=== PATIENT | female | born 1940 | race Caucasian/White ===

== ENCOUNTER → 2016-07-28 | Outpatient (CLI) | payer OTHER ==
[~2016-07-28] MED LIST: HYDR25TA4 PO; LABE300T PO; MULT-506 PO; SERT50TA PO
[2016-07-28 15:18] LABS: BASO % 0.4 %; BASO ABS # 0.03 K/uL (0-0.2); COMPLETE YES; EOS % 2.5 %; HEMATOCRIT 38.2 % (37-47); IG% 0.1 %; LYMPH % 30.2 %; LYMPH ABS # 2.27 K/uL (1.2-3.4); MEAN CORPUSCULAR HEMOGLOBIN 30.8 pg (25-34); MEAN CORPUSCULAR HGB CONC 32.5 g/dl (32-36); MEAN PLATELET VOLUME 12.1 fL (7.4-10.4); MONO % 8.3 %; NEUT % 58.5 %; PLATELET COUNT 213 K/uL (130-400); RED BLOOD COUNT 4.02 M/uL (4.2-5.4); WHITE BLOOD COUNT 7.51 K/uL (4.8-10.8)
[2016-07-28 15:26] LABS: ALT/SGPT 18 U/L (12-78); BLOOD UREA NITROGEN 17 mg/dl (7-18); BUN/CREATININE RATIO 18.7 (10-20); CALCIUM 8.6 mg/dl (8.5-10.1); CARBON DIOXIDE 29 mmol/L (21-32); CHLORIDE 104 mmol/L (98-107); CREATININE 0.93 mg/dl (0.60-1.20); GLUCOSE 91 mg/dl (70-99); POTASSIUM 3.7 mmol/L (3.5-5.1); SODIUM 141 mmol/L (136-145)
[2016-07-28 15:36] LABS: ALKALINE PHOSPHATASE 83 U/L (45-117); AST/SGOT 20 U/L (15-37)
== END | disposition home or self-care (01) ==
LOC: C.LABSPEC 15:07
PROVIDERS: ATTEND Internal Medicine
DX: L65.9 Nonscarring hair loss, unspecified (principal); I10 Essential (primary) hypertension; F32.9 Major depressive disorder, single episode, unspecified

== ENCOUNTER → 2016-08-04 | Outpatient (CLI) | payer OTHER ==
--- NOTE | 2016-08-07 13:45 | MAMMOGRAPHY REPORT ---
BILATERAL DIGITAL SCREENING MAMMOGRAM WITH CAD: 08/04/2016 CLINICAL HISTORY: Routine screening. Patient has no complaints. TECHNIQUE: Current study was also evaluated with a Computer Aided Detection (CAD) system. Bilatera l CC and MLO views were obtained. COMPARISON: Comparison is made to exams dated: 05/14/2012 mammogram, 05/11/2011 mammogram, 01/07/2010 mammogram - [facility], and 01/06/2009. BREAST COMPOSITION: There are scattered areas of fibroglandular density in both breasts. FINDINGS: No suspicious masses, calcifications, or areas of architectural distortion are noted in e ither breast. There has been no significant interval change compared to prior exams. IMPRESSION: ACR BI-RADS CATEGORY 1: NEGATIVE There is no mammographic evidence of malignancy. A 1 year screening mammogram is recommended. The p atient will receive written notification of the results. Approximately 10% of breast cancers are not detected with mammography. A negative mammographic repor t should not delay biopsy if a clinically suggestive mass is present. Teresita Rea M.D. ah/:08/04/2016 12:03:16 Research Electrician: Anahi KINGSLEY(Caden)(M), [facility] letter sent: Normal 1/2 BI-RADS Code: ACR BI-RADS Category 1: Negative
== END | disposition home or self-care (01) ==
LOC: C.MAMM 10:00
PROVIDERS: ATTEND Internal Medicine
DX: Z12.31 Encounter for screening mammogram for malignant neoplasm of breast (principal)

== ENCOUNTER 2016-09-10 14:38 | Emergency (ER) | payer OTHER ==
[~2016-09-10] VITALS: Ht 157.5 cm; Wt 58.0 kg
[~2016-09-10 14:38] MED LIST changes: -HYDR25TA4 PO
[2016-09-10 14:42] VITALS: TEMP 36.7; Ht 157.5 cm; Wt 58.0 kg
[2016-09-10] MEDS ORDERED: SODIUM CHLORIDE 0.9% 1000ML 1,000 ML IV STA (14:49)
[2016-09-10] MEDS ORDERED: SODIUM CHLORIDE 0.9% 1000ML 1,000 ML IV ONE (14:49)
[2016-09-10 14:51] VITALS: O2SAT 95
--- NOTE | 2016-09-10 15:13 | DIAGNOSTIC IMAGING REPORT ---
CHEST ONE VIEW PORTABLE HISTORY: Atypical CHEST PAIN COMPARISON: None. FINDINGS: Moderate S-shaped scoliosis of the thoracolumbar spine. The heart is mildly enlarged. No pleural effusions. No pneumothorax. Tiny linear density with the left midlung zone favor scarring or subsegmental atelectasis. Otherwise, the lungs are clear. IMPRESSION: Mild cardiomegaly. Otherwise, no acute process within the chest. Electronically signed by: Ivan Bailey M.D. 09/10/2016 3:11 PM Dictated Date/Time: 09/10/2016 3:10 PM
--- NOTE | 2016-09-10 15:20 | EMERGENCY ROOM VISIT NOTE ---
History Report prepared by Micah: Shanthi Cedeno Under the Supervision of: Dr. Rahat Villalpando M.D. First contact with patient: 14:45 Chief Complaint: WEAKNESS Stated Complaint: WEAKNESS,DEHYDRATED Nursing Triage Summary: Triage note: Pt reports generalized weakness and increased fatigue and dereased intake x several weeks. pt reports "today i shit myself today, it gushed out of me." History of Present Illness The patient is a 76 year old female who presents to the Emergency Room with complaints of worsening weakness for the past 2 weeks. The patient states that her weakness is generalized and not worse on one side of her body. Daughter states that the patient had flu-like symptoms about a month ago. Those symptoms resolved but then she started to become weak. She has been experiencing a mild cough. She has not been eating or drinking much. The patient states that she has lost about 5-6 pounds over the past couple of weeks. This morning the patient was incontinent of stool and had some diarrhea. She was also too weak to stand up in the shower. The patient denies fever, chest pain, shortness of breath, black or bloody stools, urinary symptoms, hematuria, recent trauma or falls, and any recent antibiotic usage. She does not take any blood thinners. She denies any new medications, but reports that she recently stopped taking her antidepressant. She has been feeling more depressed lately. She states that her is sick and she has been taking care of him. The patient states that she is taking all of her other medications as prescribed. Source of History: patient, family (daughter) Onset: 2 weeks ago Position: other (global) Quality: other (weakness) Timing: worsening Modifying Factors (Worsening): other (standing) Associated Symptoms: + cough, + diarrhea, No SOB, No chest pain, No fevers, No hematochezia, No melena, No urinary symptoms Note: Pt reports recent weight loss. Review of Systems See HPI for pertinent positives & negatives. A total of 10 systems reviewed and were otherwise negative. Past Medical & Surgical Medical Problems: (1) Cervicalgia (2) Hypertension Old medical records were reviewed. Nurse's notes were reviewed and I agree with. Family History Non-pertinent due to advanced age. Social History Smoking Status: Never Smoker Drug Use: none Marital Status: Housing Status: lives with significant other Occupation Status: unemployed Current/Historical Medications Scheduled Labetalol Hcl (Labetalol Hcl), 300 MG PO BID Sertraline (Zoloft), 50 MG PO QAM Allergies Coded Allergies: No Known Allergies (Verified , 09/10/16) Physical Exam Vital Signs Date Time Temp Pulse Resp B/P Pulse Ox O2 Delivery O2 Flow Rate FiO2 09/10/16 17:34 66 19 194/105 95 Room Air 09/10/16 16:30 67 16 214/100 96 09/10/16 16:30 63 15 214/100 97 Room Air 09/10/16 16:00 63 19 211/127 92 09/10/16 15:35 62 09/10/16 15:30 200/110 09/10/16 14:51 95 Room Air 09/10/16 14:42 36.7 74 20 170/90 95 Room Air Physical Exam General: Well developed well nourished non-ill appearing older female in no acute distress, breathing comfortably on room air. Normal speech HEENT: Normal cephalic atraumatic. Pupils are equal round and reactive to light. Extraocular movements are intact. Oropharynx is pink with moist mucous membranes. No swelling of the mouth lips or tongue. Neck: Supple with a midline trachea. No meningeal signs or stiffness, no JVD or bruits. No Stridor. Chest: Scattered crackles in the bases bilaterally. No wheezes or rhonchi. No increased work of breathing. Heart: regular rate and rhythm. 2/6 systolic murmur. Abdomen: Soft nontender, nondistended without rebound guarding or rigidity. Extremities: No cyanosis clubbing or edema. No calf tenderness or assymetry Spine/Back. Non tender to palpation. No CVA tenderness Skin: Good turgor without rashes. Neurologic exam: Cranial nerves two through 12 are intact. Motor and sensation are intact and symmetrical throughout. Medical Decision & Procedures ER Provider Diagnostic Interpretation: Radiology results as stated below per my review and radiologist interpretation: HEAD CT NONCONTRAST CT DOSE: 623.48 mGy.cm HISTORY: weakness TECHNIQUE: Multiaxial CT images of the head were performed without the use of intravenous contrast. Automated exposure control was utilized for this study. Comparison: None. Findings: The paranasal sinuses and mastoid air cells are clear. The calvarium and skull base are intact. There is no mass, hematoma, midline shift, acute infarct. White matter hypodensity is nonspecific but suggestive of microvascular ischemic change. The ventricles and sulci demonstrate mild age-related involutional changes. 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 Impression: No acute intracranial abnormality. Atrophy and microvascular ischemic changes. Electronically signed by: Ivan Bailey M.D. 09/10/2016 4:10 PM Dictated Date/Time: 09/10/2016 4:04 PM CHEST ONE VIEW PORTABLE HISTORY: Atypical CHEST PAIN COMPARISON: None. FINDINGS: Moderate S-shaped scoliosis of the thoracolumbar spine. The heart is mildly enlarged. No pleural effusions. No pneumothorax. Tiny linear density with the left midlung zone favor scarring or subsegmental atelectasis. Otherwise, the lungs are clear. IMPRESSION: Mild cardiomegaly. Otherwise, no acute process within the chest. Electronically signed by: Ivan Bailey M.D. 09/10/2016 3:11 PM Dictated Date/Time: 09/10/2016 3:10 PM Laboratory Results 09/10/16 15:15 Red Blood Count 4.29, Mean Corpuscular Volume 91.6, Mean Corpuscular Hemoglobin 30.8, Mean Corpuscular Hemoglobin Concent 33.6, Mean Platelet Volume 11.1, Neutrophils (%) (Auto) 75.3, Lymphocytes (%) (Auto) 16.9, Monocytes (%) (Auto) 6.9, Eosinophils (%) (Auto) 0.4, Basophils (%) (Auto) 0.2, Neutrophils # (Auto) 8.50, Lymphocytes # (Auto) 1.91, Monocytes # (Auto) 0.78, Eosinophils # (Auto) 0.05, Basophils # (Auto) 0.02 09/10/16 15:15 Test 09/10/16 15:15 09/10/16 15:16 09/10/16 16:25 White Blood Count 11.29 K/uL (4.8-10.8) Red Blood Count 4.29 M/uL (4.2-5.4) Hemoglobin 13.2 g/dL (12.0-16.0) Hematocrit 39.3 % (37-47) Mean Corpuscular Volume 91.6 fL (80-100) Mean Corpuscular Hemoglobin 30.8 pg (25-34) Mean Corpuscular Hemoglobin Concent 33.6 g/dl (32-36) Platelet Count 243 K/uL (130-400) Mean Platelet Volume 11.1 fL (7.4-10.4) Neutrophils (%) (Auto) 75.3 % Lymphocytes (%) (Auto) 16.9 % Monocytes (%) (Auto) 6.9 % Eosinophils (%) (Auto) 0.4 % Basophils (%) (Auto) 0.2 % Neutrophils # (Auto) 8.50 K/uL (1.4-6.5) Lymphocytes # (Auto) 1.91 K/uL (1.2-3.4) Monocytes # (Auto) 0.78 K/uL (0.11-0.59) Eosinophils # (Auto) 0.05 K/uL (0-0.5) Basophils # (Auto) 0.02 K/uL (0-0.2) RDW Standard Deviation 44.2 fL (36.4-46.3) RDW Coefficient of Variation 13.3 % (11.5-14.5) Immature Granulocyte % (Auto) 0.3 % Immature Granulocyte # (Auto) 0.03 K/uL (0.00-0.02) Red Blood Cell Morphology Unremarkable Anion Gap 8.0 mmol/L (3-11) Est Creatinine Clear Calc Drug Dose 44.9 ml/min Estimated GFR () 76.1 Estimated GFR (Non- 65.6 BUN/Creatinine Ratio 23.8 (10-20) Calcium Level 9.0 mg/dl (8.5-10.1) Total Bilirubin 0.6 mg/dl (0.2-1) Direct Bilirubin 0.2 mg/dl (0-0.2) Aspartate Amino Transf (AST/SGOT) 12 U/L (15-37) Alanine Aminotransferase (ALT/SGPT) 14 U/L (12-78) Alkaline Phosphatase 81 U/L (45-117) Total Protein 7.0 gm/dl (6.4-8.2) Albumin 3.1 gm/dl (3.4-5.0) Lipase 170 U/L (73-393) Thyroid Stimulating Hormone (TSH) 1.890 uIu/ml (0.300-4.500) Bedside Troponin I 0.030 ng/ml (0-0.045) Urine Color DK YELLOW Urine Appearance CLEAR (CLEAR) Urine pH 6.0 (4.5-7.5) Urine Specific [place] 1.013 (1.000-1.030) Urine Protein 1+ (NEG) Urine Glucose (UA) NEG (NEG) Urine Ketones NEG (NEG) Urine Occult Blood TRACE (NEG) Urine Nitrite NEG (NEG) Urine Bilirubin NEG (NEG) Urine Urobilinogen NEG (NEG) Urine Leukocyte Esterase NEG (NEG) Urine WBC (Auto) 0 /hpf (0-5) Urine RBC (Auto) 0-4 /hpf (0-4) Urine Hyaline Casts (Auto) 1-5 /lpf (0-5) Urine Epithelial Cells (Auto) >30 /lpf (0-5) Urine Bacteria (Auto) NEG (NEG) Urine Renal Epithelial Cells /lpf (0-5) Laboratory studies as stated above per my review. Medications Administered Medications (Trade) Dose Ordered Sig/Dang Route Start Time Stop Time Status Last Admin Dose Admin Sodium Chloride 1,000 ml @ 999 mls/hr Q1H1M STAT IV 09/10/16 14:49 09/10/16 15:49 DC 09/10/16 15:24 999 MLS/HR Sodium Chloride (Nss 1000ml) 1,000 ml @ 150 mls/hr Q6H40M ONCE IV 09/10/16 14:49 09/10/16 18:45 DC 09/10/16 15:25 150 MLS/HR Labetalol HCl (Normodyne Tab) 300 mg NOW ONCE PO 09/10/16 17:30 09/10/16 17:31 DC 09/10/16 17:33 300 MG ECG Indication: weakness Rate (beats per minute): 65 Rhythm: normal sinus Findings: T-wave inversion (Lateral), no acute ischemic change Comparison ECG Date: no prior available ED Course 1445: Past medical records reviewed. The patient was evaluated in room C3, and a complete history and physical examination were performed. 1449: NSS 1000 ml @ 150 mls/hr IV, NSS 1000 ml @ 999 mls/hr IV 1612: I reassessed the patient at this time. She is resting comfortably and still needs to give a urine sample. 1703: I reassessed the patient at this time. She is feeling better and wants to go home. I discussed the results and treatment plan with the patient and her daughter. I answered all pertaining questions that they had. They expressed understanding and verbalized agreement. 1714: I spoke with the patient's PCP, Dr. Holman. We discussed the patient' s case. He recommends giving the patient a normal dose of Labetalol and discharging her home. 1730: Labetalol HCl 300 mg PO Medical Decision Differential diagnoses includes dehydration, electrolyte or metabolic abnormality, infection, arrhythmia, acute coronary syndrome. This patient comes in as described above. She was placed in room C3. She is here for treatment and evaluation of generalized weakness that has been going on for about 2 weeks. She has had diarrhea today without blood. She was weak to the point where she had trouble getting up. This has been nonfocal. She's had no fall she's had no fever or chills. She has no other specific complaints. No chest pain or shortness of breath. IV access established was hydrated with IV normal saline. Chest x-ray , CAT scan her head , EKG , and multiple blood tests was obtained. She has a nonfocal neurologic exam the CAT scan of her head is unremarkable. Chest x-ray does not show congestive heart failure, pneumonia, or pneumothorax. Her white count is minimally elevated. She is not anemic. She has no significant electrolyte or metabolic abnormalities. Her cardiac enzymes are within normal limits. She does have an EKG which shows some T-wave inversions laterally. There is nothing to suggest acute IL. I do not know the chronicity of the T-wave inversions as there is no old EKG available here for comparison. The patient did have an ambulatory trial as well. She did well with a most [place]. Her urinalysis does not suggest a UTI nor does she have urinary symptoms. A culture is pending. Blood pressure did remain elevated while she was here. She has yet to take her evening dose labetalol. I gave her her normal dose here of 300 mg. She was told that this is her normal dose and do not take her dose when she gets home. I did discuss case with Dr. Holman, her primary care physician, and he agrees with the plan will follow up with her tomorrow and return if: worsening of symptoms, shortness of breath, any new problems or concerns. Consults Time Called: 171 Consulting Physician: Dr. Holman Returned Call: [phone] I spoke with the patient's PCP, Dr. Holman. We discussed the patient's case. He recommends giving the patient a normal dose of Labetalol and discharging her home. Impression Primary Impression: Weakness Additional Impressions: Dehydration Diarrhea Scribe Attestation The scribe's documentation has been prepared under my direction and personally reviewed by me in its entirety. I confirm that the note above accurately reflects all work, treatment, procedures, and medical decision making performed by me. Departure Information Dispostion Home / Self-Care Referrals Alonso Phoenix M.D. (PCP) Forms HOME CARE DOCUMENTATION FORM, IMPORTANT VISIT INFORMATION Patient Instructions My [facility] Additional Instructions Rest. Drink plenty of fluids. Be careful getting up and down. You have received her evening blood pressure medication here -do not take it again Follow-up with Dr. Holman tomorrow to get your blood pressure rechecked and return to the ER if: Fever or chills, worsening symptoms, any new problems or concerns. Problem Qualifiers Additional Impressions: Diarrhea Diarrhea type: unspecified type Qualified Codes: R19.7 - Diarrhea, unspecified
[2016-09-10 15:23] LABS: HEMATOCRIT 39.3 % (37-47); MEAN CELL VOLUME 91.6 fL (80-100); MEAN CORPUSCULAR HEMOGLOBIN 30.8 pg (25-34); MEAN CORPUSCULAR HGB CONC 33.6 g/dl (32-36); MEAN PLATELET VOLUME 11.1 fL (7.4-10.4); PLATELET COUNT 243 K/uL (130-400); RED BLOOD COUNT 4.29 M/uL (4.2-5.4); WHITE BLOOD COUNT 11.29 K/uL (4.8-10.8)
[2016-09-10 15:41] LABS: BASO % 0.2 %; BASO ABS # 0.02 K/uL (0-0.2); COMPLETE YES; EOS % 0.4 %; IG% 0.3 %; LYMPH % 16.9 %; LYMPH ABS # 1.91 K/uL (1.2-3.4); MONO % 6.9 %; NEUT % 75.3 %
[2016-09-10 15:50] LABS: BUN/CREATININE RATIO 23.8 (10-20); CREATININE 0.87 mg/dl (0.60-1.20); POTASSIUM 4.1 mmol/L (3.5-5.1)
[2016-09-10 16:01] LABS: THYROID STIMULATING HORMONE 1.89 uIu/ml (0.300-4.500)
--- NOTE | 2016-09-10 16:12 | DIAGNOSTIC IMAGING REPORT ---
HEAD CT NONCONTRAST CT DOSE: 623.48 mGy.cm HISTORY: weakness TECHNIQUE: Multiaxial CT images of the head were performed without the use of intravenous contrast. Automated exposure control was utilized for this study. Comparison: None. Findings: The paranasal sinuses and mastoid air cells are clear. The calvarium and skull base are intact. There is no mass, hematoma, midline shift, acute infarct. White matter hypodensity is nonspecific but suggestive of microvascular ischemic change. The ventricles and sulci demonstrate mild age-related involutional changes. 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 Impression: No acute intracranial abnormality. Atrophy and microvascular ischemic changes. Electronically signed by: Ivan Bailey M.D. 09/10/2016 4:10 PM Dictated Date/Time: 09/10/2016 4:04 PM
[2016-09-10] MEDS ORDERED: LABETALOL HCL 100 MG TAB PO ONE (17:30)
[2016-09-10 17:34] VITALS: BP 194/105; PULSE 66; O2SAT 95
[2016-09-10 17:44] LABS: URINE APPEARANCE CLEAR (CLEAR); URINE BILIRUBIN NEG (NEG); URINE COLOR DK YELLOW; URINE EPITHELIAL CELL AUTO >30 /lpf (0-5); URINE NITRITE NEG (NEG); URINE SPECIFIC GRAVITY 1.013 (1.000-1.030); UROBILINOGEN NEG (NEG)
[2016-09-10 17:50] LABS: MANUAL MICROSCOPIC REQUIRED? NO; REVIEW REQ? YES
--- NOTE | 2016-09-12 12:35 | Pharmacy Progress Note ---
ED Pharmacist Culture FollowUp Date of Service: Sep 12, 2016. Gamma Strep not Enterococcus isolated from urine culture. Patient denied urinary symptoms and hematuria. Urinalysis grossly normal with the exception of a significant amount of epithelial cells and trace blood. Likely contaminant - no intervention required. Case discussed with Dr. Choi.
[2016-12-01] MEDS ORDERED: HYDR25TA4 PO (13:12)
== END 2016-09-10 17:54 | disposition home or self-care (01) ==
LOC: C.EDB 14:40 → C.EDC 17:54
DX: R53.1 Weakness (principal); R19.7 Diarrhea, unspecified; E86.0 Dehydration; I10 Essential (primary) hypertension; Z79.899 Other long term (current) drug therapy

== ENCOUNTER → 2016-09-13 | Outpatient (CLI) | payer OTHER ==
[~2016-09-13] MED LIST changes: +ATROPINE SULFATE 0.1 MG/ML 5ML SYR ONE; +DOBUTamine HCL 12.5 MG/ML 20 ML VIAL ONE; +HYDR25TA4 PO; +METOPROLOL TARTRATE 1 MG/ML VIAL ONE; -MULT-506 PO
--- NOTE | 2016-09-13 17:27 | DOBUTAMINE ECHO ---
*NOTICE TO RECEIVING [employer] This information is strictly Confidential and protected under [place] law. [place] law prohibits you from making any further disclosure of this information unless further disclosure is expressly permitted by the written consent of the person to whom it pertains or is authorized by law. A general authorization for the release of medical or other information is not sufficient for this purpose. Hospital accepts no responsibility if the information is made available to any other person, INCLUDING THE PATIENT. Interpretation Summary * Name: TYSON MARAVILLA Study Date: 09/13/2016 10:39 AM BP: 162/93 mmHg * Patient Location: [facility] HR: 62 * : 1940 (M/d/yyyy) Gender: Female Height: 62 in * Age: 76 yrs Ethnicity: [place] Weight: 130 lb * Ordering Physician: Alonso Phoenix * Referring Physician: Alonso Phoenix * Performed By: Trang Astudillo RCS * * Reason For Study: Abnormal EKG, CAD Screening * BSA: 1.6 m2 * -- Conclusions -- * 1. Severe concentric left ventricular hypertrophy. Appearance raises concern for possible amyloid or other infiltrative process. * 2. Borderline dobutamine stress echo. Possible mild stress induced hypokinesis in base to mid anteroseptum, septum. * 3. Negative dobutamine stress ECG for ischemia at 86% MPHR. * 4. Hypertensive response to dobutmaine. * 5. Normal resting biventricular function. * 6. Severe mitral annular calcification with mild mitral stenosis. * 7. Mild aortic valve sclerosis without stenosis. * 8. Small pericardial effusion. * 9. Moderate atherosclerotic plaque in ascending aorta. * 10. Abdominal aorta dilated (4.2 cm) with atherosclerotic plaque. Procedure Details * DOBUTAMINE ECHO, CPT#[id number] * ECHO COLOR FLOW, CPT #[id number] * ECHO DOPPLER, CPT #[id number] Left Ventricle * The left ventricular cavity is small. * There is severe concentric left ventricular hypertrophy. * Papillary muscle hypertrophy. No clear intracavitary gradient noted. * Ejection Fraction = 60-65%. * Stress induced mild,base to mid anteroseptal, septal hypokinesis. Right Ventricle * The right ventricle is grossly normal size. * The right ventricular systolic function is normal as assessed by tricuspid annular plane systolic excursion (TAPSE) (normal >1.5 cm). Atria * The left atrium is severely dilated. * Right atrial size is normal. * No ASD detected; PFO is not assessed. Mitral Valve * There is severe mitral annular calcification. * The mitral valve leaflets appear thickened, but open well. * There is mild to moderate mitral stenosis. * Significant mitral regurgitation is absent. Tricuspid Valve * The tricuspid valve is not well visualized, but is grossly normal. * There is no tricuspid stenosis. * Significant tricuspid regurgitation is absent. Aortic Valve * The aortic valve opens well. * Aortic valve sclerosis mild, without significant aortic valvular stenosis. * The aortic valve is trileaflet. * No hemodynamically significant valvular aortic stenosis. * There is no significant aortic regurgitation. Pulmonic Valve * The pulmonary valve is inadequately visualized, but the Doppler data is adequate for interpretation. * There is no pulmonic valvular regurgitation. Great Vessels * Moderate atherosclerotic plaque(s) in the ascending aorta. * Moderately dilated abdominal aorta. Pericardium * Small pericardial effusion. Stress Parameters * Sinus rhythm, borderline criteria for LVH, inferior T wave inversions. * Stress ECG: No ST changes. No arrhythmias. * No arrhythmia were noted with stress. * Rest heart rate was '62' BPM. * Rest blood pressure was '162/93' * Maximum heart rate achieved was 127 bpm. * Maximum heart rate was 86 % of maximum age-predicted heart rate. * Maximum blood pressure was '212/98' * Maximum Dobutamine infusion rate was '30' mcg/kg/min. * A total of .5 mg of intravenous Atropine was used to supplement Dobutamine for heart rate response. * Dobutamine infusion was terminated due to achieving target heart rate * A total of 10 mg of IV Metoprolol was administered to reverse Dobutamine-induced tachycardia. * The patient did not exhibit any symptoms during drug infusion. Left Ventricular Diastolic Function * Severely reduced LV longitudinal velocity on tissue doppler MMode 2D Measurements and Calculations IVSd 1.9 cm IVSs 2.4 cm LVIDd 3.9 cm LVIDs 2.6 cm LVPWd 1.8 cm LVPWs 2.2 cm IVS/LVPW 1.1 FS 34.2 % EDV(Teich) 66.6 ml ESV(Teich) 24.0 ml EF(Teich) 63.9 % EDV(cubed) 60.1 ml ESV(cubed) 17.1 ml EF(cubed) 71.6 % % IVS thick 26.1 % % LVPW thick 24.4 % LV mass(C)d 319.6 grams LV mass(C)dI 200.8 grams/m\S\2 LV mass(C)s 299.8 grams LV mass(C)sI 188.3 grams/m\S\2 CO(Teich) 3.2 l/min CI(Teich) 2.0 l/min/m\S\2 SV(Teich) 42.6 ml SI(Teich) 26.8 ml/m\S\2 CO(cubed) 3.3 l/min CI(cubed) 2.1 l/min/m\S\2 SV(cubed) 43.0 ml SI(cubed) 27.0 ml/m\S\2 Ao root diam 3.9 cm Ao root area 11.9 cm\S\2 ACS 1.3 cm LA dimension 3.8 cm LA/Ao 0.98 LVOT diam 2.0 cm LVOT area 3.3 cm\S\2 LVAd ap4 32.0 cm\S\2 LVLd ap4 8.5 cm EDV(MOD-sp4) 103.0 ml LVAs ap4 15.7 cm\S\2 LVLs ap4 6.8 cm ESV(MOD-sp4) 32.0 ml EF(MOD-sp4) 68.9 % LVAd ap2 25.7 cm\S\2 LVLd ap2 8.1 cm EDV(MOD-sp2) 71.0 ml LVAs ap2 15.6 cm\S\2 LVLs ap2 7.0 cm ESV(MOD-sp2) 31.0 ml EF(MOD-sp2) 56.3 % CO(MOD-sp4) 5.4 l/min CI(MOD-sp4) 3.4 l/min/m\S\2 SV(MOD-sp4) 71.0 ml SI(MOD-sp4) 44.6 ml/m\S\2 CO(MOD-sp2) 3.0 l/min CI(MOD-sp2) 1.9 l/min/m\S\2 SV(MOD-sp2) 40.0 ml SI(MOD-sp2) 25.1 ml/m\S\2 Doppler Measurements and Calculations MV E max itzel 121.4 cm/sec MV A max itzel 171.4 cm/sec MV E/A 0.71 MV P1/2t max itzel 122.7 cm/sec MV P1/2t 158.2 msec MVA(P1/2t) 1.4 cm\S\2 MV dec slope 227.1 cm/sec\S\2 MV dec time 0.58 sec Ao V2 max 256.3 cm/sec Ao max PG 26.3 mmHg Ao max PG (full) 21.9 mmHg Ao V2 mean 144.6 cm/sec Ao mean PG 10.3 mmHg Ao mean PG (full) 8.3 mmHg Ao V2 VTI 44.8 cm MALINI(I,A) 1.7 cm\S\2 MALINI(I,D) 1.7 cm\S\2 MALINI(V,A) 1.3 cm\S\2 MALINI(V,D) 1.3 cm\S\2 LV V1 max PG 4.4 mmHg LV V1 mean PG 2.0 mmHg LV V1 max 104.6 cm/sec LV V1 mean 63.6 cm/sec LV V1 VTI 22.8 cm SV(Ao) 531.5 ml SI(Ao) 333.9 ml/m\S\2 SV(LVOT) 75.2 ml SI(LVOT) 47.3 ml/m\S\2 PA V2 max 111.7 cm/sec PA max PG 5.0 mmHg
== END | disposition home or self-care (01) ==
LOC: C.CPL 10:16
PROVIDERS: ATTEND Internal Medicine
DX: R94.31 Abnormal electrocardiogram [ECG] [EKG] (principal); I70.0 Atherosclerosis of aorta; I34.9 Nonrheumatic mitral valve disorder, unspecified; I51.7 Cardiomegaly

== ENCOUNTER → 2016-11-28 | Outpatient (CLI) | payer OTHER ==
[~2016-11-28] MED LIST changes: -ATROPINE SULFATE 0.1 MG/ML 5ML SYR ONE; -DOBUTamine HCL 12.5 MG/ML 20 ML VIAL ONE; -METOPROLOL TARTRATE 1 MG/ML VIAL ONE
== END | disposition home or self-care (01) ==
LOC: C.PATHSPEC 15:43
PROVIDERS: ATTEND Internal Medicine
DX: C44.629 Squamous cell carcinoma of skin of left upper limb, including shoulder (principal)

== ENCOUNTER → 2016-11-30 | Outpatient (CLI) | payer OTHER ==
[2016-11-30 12:06] LABS: BASO % 0.5 %; BASO ABS # 0.04 K/uL (0-0.2); COMPLETE YES; HEMATOCRIT 41.2 % (37-47); IG% 0.1 %; LYMPH % 27.5 %; LYMPH ABS # 2.04 K/uL (1.2-3.4); MEAN CELL VOLUME 96.3 fL (80-100); MEAN CORPUSCULAR HEMOGLOBIN 30.6 pg (25-34); MEAN CORPUSCULAR HGB CONC 31.8 g/dl (32-36); MEAN PLATELET VOLUME 12.3 fL (7.4-10.4); MONO % 8.5 %; NEUT % 60.4 %; PLATELET COUNT 200 K/uL (130-400); RED BLOOD COUNT 4.28 M/uL (4.2-5.4); WHITE BLOOD COUNT 7.43 K/uL (4.8-10.8)
[2016-11-30 12:18] LABS: ALT/SGPT 19 U/L (12-78); AST/SGOT 16 U/L (15-37); BLOOD UREA NITROGEN 18 mg/dl (7-18); CALCIUM 8.7 mg/dl (8.5-10.1); CARBON DIOXIDE 31 mmol/L (21-32); CHLORIDE 110 mmol/L (98-107); CHOLESTEROL 187 mg/dl (0-200); GLUCOSE 104 mg/dl (70-99); POTASSIUM 4.1 mmol/L (3.5-5.1); SODIUM 146 mmol/L (136-145); TRIGLYCERIDES 83 mg/dl (0-150); VERY LOW DENSITY LIPOPROT CALC 17 mg/dl
[2016-11-30 12:21] LABS: ALB/GLOB RATIO 1.1 (0.9-2); ALKALINE PHOSPHATASE 81 U/L (45-117); CHOLESTEROL/HDL RATIO 3.3; HDL CHOLESTEROL 57 mg/dl
== END | disposition home or self-care (01) ==
LOC: C.LABSPEC 11:47
PROVIDERS: ATTEND Internal Medicine
DX: I10 Essential (primary) hypertension (principal); E78.5 Hyperlipidemia, unspecified

== ENCOUNTER → 2016-12-01 | Day surgery (SDC) | payer OTHER ==
[~2016-12-01] VITALS: Ht 157.5 cm; Wt 58.0 kg
[~2016-12-01] MED LIST changes: +FENTANYL CITRATE INJ 50 MCG/1 ML 2 ML VIAL ONE; +HEPARIN SOD (PORCINE) 1000 UNIT/ML 10 ML VIAL ONE; +HYDROCHLOROTHIAZIDE 25 MG TAB PO ONE; +MIDAZOLAM HCL 1 MG/ML 2ML VIAL ONE; +NITROGLYCERIN/D5W 100MCG/ML 20ML SYR ONE; +NURSING VERBAL MED ORDER ONE; +NiCARDipine HCL INJ 2.5 MG/ML 10 ML AMP ONE
[2016-12-01 07:19] VITALS: PULSE 56; TEMP 36.5; O2SAT 95; Ht 157.5 cm; Wt 58.0 kg
--- NOTE | 2016-12-01 09:14 | History & Physical Bridge Note ---
H&P Re-Evaluation Bridge Note: I have examined the patient, reviewed the History & Physical and in the interval since the performance of the History & Physical I have noted the following changes of clinical significance: No changes noted
--- NOTE | 2016-12-01 09:15 | Procedure Note ---
Pre-Mod Sedation Assessment General Date of Moderate Sedation: Dec 01, 2016. Vital Signs: Vital Signs Past 12 Hours Date Time Temp Pulse Resp B/P (MAP) Pulse Ox O2 Delivery O2 Flow Rate FiO2 12/01/16 07:19 36.5 56 16 95 Room Air Review Cardiovascular: regular rate, rhythm, no edema Abdomen: normal bowel sounds, non tender Lungs: chest non-tender, lungs clear Airway Class: II Pre-Sedation Airway Assessment Oral Cavity: Dentures Able to Visualize Vocal Cords: No Short Thick Neck: No Hx of Sleep Apnea: No Smoking Status: Current Every Day Smoker Mallampati Classification: Class II ASA Classification: Class III Procedure Planning Contraindications-for Mod Sed: None Yes Notes The planned sedation has been discussed with the patient and consent obtained. I have identified the patient, determined the appropriateness of sedation and have assessed the patient immediately prior to the procedure. All medicine(s) and interventions are by my order.
--- NOTE | 2016-12-01 09:15 | Procedure Note ---
Post-Mod Sedation Assessment General Date of Moderate Sedation Dec 01, 2016. Vital Signs: Vital Signs Past 12 Hours Date Time Temp Pulse Resp B/P (MAP) Pulse Ox O2 Delivery O2 Flow Rate FiO2 12/01/16 07:19 36.5 56 16 95 Room Air Review - Discharge Criteria Vital Signs Stable: Yes Alert/Oriented/Conversant: Yes Returned to Baseline Mental St: Yes Nausea Absent/Minimal: Yes Pain/Discomfort/Absent/Minimal: Yes Normal/Baseline Respirations: Yes Active Bleeding?: No Pt Received D/C Instructions: No Prescriptions Given: None Specific Proced. D/C Criteria Distal Pulses Present (Cardiac: Yes Groin site assessed-Card Cath: N/A Voided Prior To Discharge: N/A Discharged Patients Adult Escort/Transportation: Yes
[2016-12-01 09:42] LABS: ISTAT ARTERIAL BLOOD GAS HCO3 27 meq/L (19-24); ISTAT ARTERIAL BLOOD GAS PCO2 52 mmHg (35-46); ISTAT ARTERIAL BLOOD GAS PO2 48 mmHg (80-95); ISTAT ARTERIAL BLOOD GAS pH 7.33 (7.35-7.45); ISTAT CARBON DIOXIDE 29 mEq/l (24-31)
[2016-12-01 09:42] LABS: ISTAT ARTERIAL BLOOD GAS HCO3 27 meq/L (19-24); ISTAT ARTERIAL BLOOD GAS HCO3 28 meq/L (19-24); ISTAT ARTERIAL BLOOD GAS PCO2 50 mmHg (35-46); ISTAT ARTERIAL BLOOD GAS PCO2 53 mmHg (35-46); ISTAT ARTERIAL BLOOD GAS PO2 49 mmHg (80-95); ISTAT ARTERIAL BLOOD GAS PO2 < 32 mmHg (80-95); ISTAT ARTERIAL BLOOD GAS pH 7.33 (7.35-7.45); ISTAT ARTERIAL BLOOD GAS pH 7.34 (7.35-7.45); ISTAT CARBON DIOXIDE 28 mEq/l (24-31); ISTAT CARBON DIOXIDE 30 mEq/l (24-31)
--- NOTE | 2016-12-01 09:44 | Cardiac Catheterization ---
Procedure Note Procedure Date Dec 01, 2016. 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 Henderson [employer] Dynamics Manager Architect(s) Deangelo Estimated Blood Loss 10 Medication(s) Fentanyl, Heparin, Nicardipine, Nitroglycerin, Versed, Lidocaine 1% Summary of Findings Indication: Dyspnea on exertion/Abnormal stress test Access: 6Fr Slender Right Radial Artery; 6Fr slender right antecubital vein Catheters: [place], pigtail, JL3.5; 6Fr [place] Findings: LM - Angiographically normal LAD - Tortuous, angiographically normal Circumflex - Tortuous, angiographically normal RCA - Dominant, tortuous, angiographically normal RA 9 RV 38/10 PA 34/14 (22) PCW 17 LVEDP 22 PaSat 55% AoSat 81% Keyur CO/CI 4.4/2.8 Thermo CO/CI 4.2/2.7 Simultaneous wedge/LV --> MV mean gradient 5.8 Arterial Closure: TR Band Summary: 1. Angiographically normal coronary arteries 2. Elevated right and left intracardiac filling pressures. 3. Normal cardiac output 4. No pulmonary hypertension 5. Mild mitral stenosis 6. Hypoxia to low 80s with sedation Recommendations: Consider addition of low dose diuretics for elevated filing pressures Continue antihypertensives Continued ASCVD risk factor modification including smoking cessation Intermittent surveillance imaging for mitral stenosis Hemodynamics Rest Ao: 163/67/104 Final Ao: 174/71/109 LV: 161/25 Recommendations Medical therapy and/or Counseling Specimens None Radiation Exposure (mGy) 224 Contrast (mls) 40 Fluids (cc crystalloids) 150 Drains None Anesthesia Moderate Procedural Complication(s) None Disposition Accessories Repairer Holding/Recovery [facility] Data Cardiac Status Clinical evaluation leading to the procedure CAD Presntation: Positive Stress Test Anginal Classification: CCS III Heart Failure: No, NYHA Class: CCS I Cardiogenic Shock w/in 24Hrs: No Cardiac Arrest w/in 24Hrs: No Imaging studies past 6 months: Yes Stress studies past 6 months: Yes Standard Exercise Stress Test: No Stress Echocardiogram: Yes - Positive, Risk/Extent of Ischemia (Low) Stress Testing w/SPECT MPI: No Cardiac CTA: No Coronary Anatomy Dominant: Right Left Main (% Stenosis): Normal LAD (% Stenosis): Normal Circumflex (% Stenosis): Normal RCA (% Stenosis): Normal Diagnostic Physician's Name: Gil Henderson MD Status: Elective Closure Device Percutaneous Entry Location: Radial Closure Device: Radial Band Recommendations: Medical therapy and/or Counseling Intraprocedure Events Significant Dissection: No Perforation: No
--- NOTE | 2016-12-01 09:47 | Discharge Instructions ---
Discharge Instructions Procedure Procedure Date: Dec 01, 2016. Reason for Visit: Abnormal Stress Echo, *Dr Henderson To Do*. Discharge Discharge Date: Dec 01, 2016. Discharge Diagnosis: False positive stress test Last Recorded Wt (Kilograms): 58 Anesthesia Post Anesthesia Instructions: If you have had IV Sedation: * Do not drive today. * Resume driving when surgeon permits. * Do not make important decisions or sign legal documents today. * Call surgeon for: 1. Temperature elevations greater than 101 degrees F. 2. Uncontrollable pain. 3. Excessive bleeding. 4. Persistent nausea and vomiting. 5. Medication intolerance (nausea, vomiting or rash). * For nausea and vomiting use only clear liquids such as: tea, soda, bouillon until nausea subsides, then gradually increase diet as tolerated. * If you have any concerns or questions, call your surgeon's office. If physician is unavailable and it is an emergency, call 911 or go to the nearest emergency room. Instructions Activity Recommendations: limitations as noted below Recommended Home Diet: resume previous diet, low sodium Allergies: Coded Allergies: No Known Allergies (Verified , 09/10/16) Follow Up Follow-up with: ACTIVITY RECOMMENDATIONS: It is common to feel weak and fatigue for a few days. * Do not drive or operate any motorized equipment for the next 2 days. * Limit stair usage (2 or 3 trips a day only) for the next 2 days. * Do not lift anything heavier than 10 pounds for the next three days. * Do not engage in vigorous exercise or any sports for the next five days. * You may shower the day after your procedure, but do not immerse the area for three days. Cleanse the site gently with soap and water. SPECIAL CARE INSTRUCTIONS: * You may replace the pressure dressing or band-aid the morning after the procedure. * After your procedure, it is normal to have a small bruise or small lump at the site. Examine your site daily for any change in the bruise or lump, redness, swelling, drainage or numbness. Notify your doctor if any change. BLEEDING: * If there is a small amount of bleeding at the site, lie down and apply firm pressure with a clean cloth for ten minutes. When the bleeding stops, lie quietly keeping the procedure limb straight for six hours. Notify your doctor as soon as possible. * If the bleeding does not stop after ten minutes or if there is a large amount of bleeding or spurting, call 911 immediately. Continue to lie down and hold firm pressure until help arrives. SKIN IRRITATION: * You may experience some redness and/or swelling in the area where radiation was administered. If any skin irritation occurs, please contact your family physician. FOLLOW UP VISIT: Follow-up with Dr. Deepika Rodriguez in next 2 weeks. Follow-up with Dr. Henderson in 3 months. . Sherri Muhammad Recommendations: Call your doctor if: * Temperature above 101 degrees * Pain not relieved by pain medicine ordered * There is increased drainage or redness from any incision * You have any unanswered questions or concerns. Your Doctors Instructions noted above were prepared by provider Enmanuel Henderson. Patient Signature Section: Patient Instructions Signature Page [place] Julian Patient (or Guardian) Signature/Date: I have read and understand the instructions given to me by my caregivers. Caregiver/RN/Doctor Signature/Date: The above-named patient and/or guardian has received patient instructions on this date. + Original Patient Signature Page (only) stays with chart. Please make copy for patient.
[2016-12-01 12:45] VITALS: BP 189/75; PULSE 51; O2SAT 92
== END | disposition home or self-care (01) ==
LOC: C.CATH 06:53
PROVIDERS: ATTEND Internal Medicine Interventional Cardiology
DX: R06.00 Dyspnea, unspecified (principal); R94.39 Abnormal result of other cardiovascular function study; I05.0 Rheumatic mitral stenosis; I10 Essential (primary) hypertension; F17.200 Nicotine dependence, unspecified, uncomplicated; K64.8 Other hemorrhoids; Z86.010 Personal history of colon polyps

== ENCOUNTER 2018-07-09 10:51 | Inpatient (IN) ==
[2018-07-09 11:47] LABS: Basophils # (auto) 0.01 K/uL (0-0.2); Basophils % (auto) 0.1 %; Hemoglobin 13.6 g/dL (12.0-16.0); Immature Granulocytes # (auto) 0.06 K/uL (0.00-0.02); Immature Granulocytes % (auto) 0.4 %; Lymphocytes # (auto) 0.59 K/uL (1.2-3.4); Lymphocytes % (auto) 4.2 %; Mean Corpuscular Hgb Conc 33.2 g/dL (32-36); Mean Corpuscular Volume 95.6 fL (80-100); Mean Platelet Volume 11.7 fL (7.4-10.4); Monocytes # (auto) 1.04 K/uL (0.11-0.59); Monocytes % (auto) 7.4 %; Neutrophils # (auto) 12.39 K/uL (1.4-6.5); Neutrophils % (auto) 87.9 %; Platelet Count 152 K/uL (130-400); RDW Coefficient of Variation 14.2 % (11.5-14.5); RDW Standard Deviation 49.7 fL (36.4-46.3); Red Blood Count 4.29 M/uL (4.2-5.4); White Blood Count 14.09 K/uL (4.8-10.8)
--- NOTE | 2018-07-09 12:05 | XRay Report ---
XR chest 1V portable CLINICAL HISTORY: Shortness of breath. COMPARISON STUDY: Chest radiograph September 10, 2016. FINDINGS: Moderate S-shaped scoliosis of the thoracolumbar spine is noted. Moderate cardiomegaly is u nchanged. There is no evidence for pulmonary edema. There is mitral annular calcification. The appear ance of the chest is unchanged. There is pulmonary vascular congestion. IMPRESSION: 1. Pulmonary vascular congestion without pulmonary edema. 2. Moderate cardiomegaly. Electronically signed by: Giles Sanchez M.D. 07/09/2018 12:03 PM
[2018-07-09 12:23] LABS: BUN Creatinine Ratio 27.3 (10-20); Calcium 8.1 mg/dl (8.5-10.1); Creatinine Clr Calc Pharmacy 46.8 ml/min; Est GFR (African American) 70.6; Est GFR (Non-African American) 60.9; Troponin I 0.05 ng/ml (0-0.045)
[2018-07-09 12:25] LABS: Potassium 3.6 mmol/L (3.5-5.1)
[2018-07-09] MEDS ORDERED: ALBUT/IPRATROP 3MG/0.5MG NEB 3 ML VIAL NEB STA (12:31)
[2018-07-09] MEDS ORDERED: FUROSEMIDE 40 MG/4 ML VIAL IV STA (12:31)
[2018-07-09 12:58] LABS: Base Excess VBG 3.4 mEq/L; Oxygen Saturation VBG 91.6 %; pH VBG 7.34 (7.36-7.41)
[2018-07-09 13:14] LABS: Phosphorus 4.7 mg/dl (2.5-4.9)
--- NOTE | 2018-07-09 14:05 | History & Physical Report ---
Date of Service July 09, 2018 Assessment & Plan (1) Dyspnea: Not entirely clear on the etiology of her overnight dyspnea, though it could be multifactorial from COPD, mild CHF, and exacerbated by anxiety due to the in her family. - Gentle diuresis iniated by ED - Continue DuoNebs PRN - PRN O2 (likely a long-standing need and will likely need O2 on discharge if she will use it) - Trend troponins in case this was atypical anginal equivalent. - EKG on admission showed biphasic T-waves in V3-V4 and TWI in V5-V6; however, stable to priors (2) Chronic systolic heart failure: Worked up initially in 11/2016 with a right and left-heart cath by Dr. Henderson which found no evidence of CAD, but did show elevated right & left-sided cardiac pressures. Concern for an infiltrative process such as amyloidosis; however, unclear what other work-up was done after that point. Echo on 2018 showed EF 45-50% with severe LVH, stable from prior. - Lasix 20mg IV given in the ED - I feel she is near euvolemic already so will hold off on additional diuresis at this time - Cardiology consult - Monitor I&Os and weights (3) COPD (chronic obstructive pulmonary disease): No official diagnosis, but patient has a 30+ pack-year history of smoking , low-grade wheezing on exam, and has prolonged expiratory phase. - DuoNebs PRN - O2 as needed - Offered nicotine patch, but patient declined (4) Leukocytosis: Unclear etiology as patient has no focal signs/symptoms of infection. CXR on 07/09 was without infiltrate. - Monitor (5) Hypertension: PCP's note indicates HTN with sometime intermittent compliance. BP in the ED was 170/70. - Continue home metoprolol - Adjust meds as needed (6) Anxiety: History of anxiety with recent extra stressors related to grandchild's . - Continue sertraline (7) DVT prophylaxis: Low-risk per DVT calculator - SCDs History of Present Illness Primary Care Provider: Alonso Holman MD 77yo F w/ hx of HTN and anxiety who presents for acute-onset shortness of breath that began last night. Patient reports that she was in her normal state of health until yesterday. She has been under a large amount of stress in the last few days due to a in the family. Overnight, she felt shortness of breath which was worse with lying down. The shortness of breath lasted all night. In the ambulance, she required BiPap; however, she is now stable on 2L NC. She had an echo done yesterday which was ordered by her PCP to follow up on prior testing done in 2017. In 2017, she had a left and right heart cath with Dr. Henderson due to episodic shortness of breath (similar to this event). The caths showed no coronary artery disease, but did show elevated right and left- sided cardiac pressures. She reports no major CHF symptoms over the last few weeks, denying any change in exercise tolerance, any change in orthopnea, LE swelling, or other issues. Allergies Allergy/AdvReac Type Severity Reaction Status Date / Time No Known Allergies Allergy Verified 07/09/18 11:11 Home Medications Home Medications Medication Instructions Recorded Confirmed Type metoprolol tartrate 50 mg PO BID 07/09/18 07/09/18 History sertraline 50 mg PO DAILY 07/09/18 07/09/18 History Past Med/Surg History Medical History Hypertension (Chronic) Cervicalgia (Chronic) Surgical History H/O: hysterectomy Family History Mother Hypertension Social History Feels Safe at Home: Yes Smoking Status: Current every day smoker Preferred Language: Slovak Review of Systems Constitutional: no fever, no chills and no sweats Eyes: no diplopia Ear, Nose, Mouth, Throat: no ear trauma, no nasal discharge and no dental pain Respiratory: no cough, no chest congestion and no dyspnea Cardiovascular: + dyspnea, + dyspnea on exertion and + orthopnea; no chest pain , no palpitations and no syncope Gastrointestinal: no abdominal pain, no belching, no constipation, no diarrhea/ loose stools, no blood in stools and no melena Musculoskeletal: no back pain, no joint pain and no muscle weakness Integumentary: no rash, no skin ulcer and no erythema Neurologic: no generalized weakness, no loss of sensation, no numbness and no paresthesia Psychiatric: no depression and no anxiety Endocrine: no fatigue, no polydipsia and no polyphagia Physical Exam 2 Vital Signs (Past 24 Hours): Last Vital Signs Temp 36.4 C L 07/09/18 10:51 Pulse 75 07/09/18 13:31 Resp 19 07/09/18 13:31 BP 171/69 H 07/09/18 13:31 Pulse Ox 95 07/09/18 12:30 Constitutional: WD/WN, vitals as above Eyes: EOM intact bilaterally; no conjunctival abnormality ENMT: external ear and nose normal, oropharynx normal Neck: trachea midline, no thyromegaly normal visual inspection Respiratory: + cough and + audible wheezes; no respiratory distress Cardiovascular: RRR, no murmur, no edema Heart Sounds: normal S1 and normal S2 Vessels: no JVD Extremities: no edema Gastrointestinal (Abdomen): Inspection/Auscultation: abdomen normal to inspection; abdomen not distended Musculoskeletal: no cyanosis or clubbing, extremities motor strength 5/5 Skin: no rashes, warm and dry Neurologic: moves all extremities and awake Psychiatric: Orientation: alert, oriented to person and cooperative _ (1) Dyspnea Dyspnea type: orthopnea Qualified Code(s): R06.01 - Orthopnea
--- NOTE | 2018-07-09 15:30 | Emergency Department Note ---
Entered by Gianfranco Jeffries acting as a scribe for Paul Ferguson MD History of Present Illness General Chief complaint: Respiratory Problems Time Seen by Provider: 07/09/18 11:51 Source: patient Limitations: no limitations History of Present Illness Provider complaint: SOB Onset (ago): hour(s) (Last night) Location: chest (SOB) Pain Consistency: + constant Quality: + other (SOB) Associated symptoms: + cough; no chest pain, no fever/chills and no nausea/ vomiting Treatments prior to arrival: none The patient is a 77 year old female who presents to the Emergency Room with complaints of constant shortness of breath that began last night. The patient notes that she felt short of breath last night, which was worsened by lying flat while trying to sleep. She is not normally on oxygen at home and has no history of COPD. She denies any associated chest pain, nausea, vomiting, or diarrhea, but does not a persistent cough for the past couple of days. The patient is a current everyday smoker. She is not on Lasix. The patient had an echocardiogram performed as an outpatient yesterday, which was ordered by her primary care office. She cannot remember the reason for ordering this test. Home Medications Home Medications Medication Instructions Recorded Confirmed Type metoprolol tartrate 50 mg PO BID 07/09/18 07/09/18 History sertraline 50 mg PO DAILY 07/09/18 07/09/18 History Allergies Allergy/AdvReac Type Severity Reaction Status Date / Time No Known Allergies Allergy Verified 07/09/18 11:11 Past Med/Surg History Medical History Hypertension (Chronic) Cervicalgia (Chronic) Surgical History H/O: hysterectomy Family History Mother Hypertension Social History Current Living Situation: Spouse Other Information That Helps Us Care for You: No Feels Safe at Home: Yes Safety Concerns: Feels Safe At This Time Smoking Status: Current every day smoker Tobacco Type: cigarettes Do You Dip or Chew Tobacco: No Second Hand Exposure: No Tobacco Cessation Education Requested by Patient: Yes Hx Alcohol Use: Yes Alcohol type: other Hx Substance Use: No Beliefs That Will Affect Care: None Communication Ability: Effective Sports Announcer Required: No Review of Systems See HPI for pertinent positives & negatives. and A total of 10 systems reviewed and were otherwise negative Physical Exam Vital Signs Vital Signs - 24 hr 07/09/18 10:51 07/09/18 11:35 07/09/18 12:30 Temperature 36.4 C L Temperature Source Oral Sepsis Recent Fever Within 48 Hours No Sepsis New/Unexplained Change in Mental Status No Sepsis Action Taken by Nursing No Action Required Pulse Rate 63 63 Pulse Rate [Apical] 63 Pulse Rate [Left Radial] Pulse Rhythm Regular Regular Pulse Rhythm [Apical] Regular Respiratory Rate 16 16 24 Respiratory Effort / Characteristics Non-Labored Respiratory Depth Normal Normal Respiratory Pattern Regular Blood Pressure 144/91 H Blood Pressure [Left Arm] 160/105 H Blood Pressure Mean 108 Blood Pressure Mean [Left Arm] 123 Blood Pressure Position [Left Arm] Pulse Oximetry 95 95 95 Oxygen Delivery Method Nasal Cannula Nasal Cannula Nasal Cannula Oxygen Flow Rate 2 2 2 07/09/18 13:31 07/09/18 14:01 07/09/18 15:00 Temperature Temperature Source Sepsis Recent Fever Within 48 Hours Sepsis New/Unexplained Change in Mental Status Sepsis Action Taken by Nursing Pulse Rate 75 64 76 Pulse Rate [Apical] Pulse Rate [Left Radial] Pulse Rhythm Pulse Rhythm [Apical] Respiratory Rate 19 26 H 23 Respiratory Effort / Characteristics Respiratory Depth Respiratory Pattern Blood Pressure 171/69 H 140/59 L 158/79 H Blood Pressure [Left Arm] Blood Pressure Mean 103 86 105 Blood Pressure Mean [Left Arm] Blood Pressure Position [Left Arm] Pulse Oximetry 96 96 Oxygen Delivery Method Oxygen Flow Rate 07/09/18 15:30 07/09/18 16:01 07/09/18 16:31 Temperature Temperature Source Sepsis Recent Fever Within 48 Hours Sepsis New/Unexplained Change in Mental Status Sepsis Action Taken by Nursing Pulse Rate 72 74 82 Pulse Rate [Apical] Pulse Rate [Left Radial] Pulse Rhythm Pulse Rhythm [Apical] Respiratory Rate 23 26 H 18 Respiratory Effort / Characteristics Respiratory Depth Respiratory Pattern Blood Pressure 176/93 H 153/72 H 182/85 H Blood Pressure [Left Arm] Blood Pressure Mean 120 99 117 Blood Pressure Mean [Left Arm] Blood Pressure Position [Left Arm] Pulse Oximetry 94 97 91 Oxygen Delivery Method Oxygen Flow Rate 07/09/18 17:01 07/09/18 17:29 07/09/18 17:51 Temperature 37 C Temperature Source Oral Sepsis Recent Fever Within 48 Hours Sepsis New/Unexplained Change in Mental Status Sepsis Action Taken by Nursing Pulse Rate 75 75 Pulse Rate [Apical] Pulse Rate [Left Radial] 70 Pulse Rhythm Pulse Rhythm [Apical] Respiratory Rate 22 22 20 Respiratory Effort / Characteristics Short of Breath SOB on Exertion Respiratory Depth Normal Respiratory Pattern Regular Blood Pressure 122/94 122/94 Blood Pressure [Left Arm] 168/76 H Blood Pressure Mean 103 Blood Pressure Mean [Left Arm] 106 Blood Pressure Position [Left Arm] Semi-fowlers Pulse Oximetry 91 94 92 Oxygen Delivery Method Nasal Cannula Nasal Cannula Oxygen Flow Rate 2 2 07/09/18 18:34 07/09/18 18:56 07/09/18 19:03 Temperature 37.0 C Temperature Source Oral Sepsis Recent Fever Within 48 Hours Sepsis New/Unexplained Change in Mental Status Sepsis Action Taken by Nursing Pulse Rate 97 H Pulse Rate [Apical] 84 Pulse Rate [Left Radial] 107 H Pulse Rhythm Pulse Rhythm [Apical] Respiratory Rate 19 20 Respiratory Effort / Characteristics Spontaneous Labored Short of Breath Respiratory Depth Respiratory Pattern Blood Pressure Blood Pressure [Left Arm] 185/75 H Blood Pressure Mean Blood Pressure Mean [Left Arm] 111 Blood Pressure Position [Left Arm] Pulse Oximetry 93 94 Oxygen Delivery Method Nasal Cannula Nasal Cannula Oxygen Flow Rate 2 2 07/09/18 19:28 07/09/18 21:33 07/09/18 21:35 Temperature Temperature Source Sepsis Recent Fever Within 48 Hours Sepsis New/Unexplained Change in Mental Status Sepsis Action Taken by Nursing Pulse Rate Pulse Rate [Apical] 87 Pulse Rate [Left Radial] Pulse Rhythm Pulse Rhythm [Apical] Respiratory Rate 20 Respiratory Effort / Characteristics Short of Breath SOB on Exertion Short of Breath SOB on Exertion Respiratory Depth Normal Respiratory Pattern Regular Regular Blood Pressure Blood Pressure [Left Arm] 143/95 H Blood Pressure Mean Blood Pressure Mean [Left Arm] 111 Blood Pressure Position [Left Arm] Sitting Pulse Oximetry 91 Oxygen Delivery Method Nasal Cannula Oxygen Flow Rate 2.5 GENERAL: Awake, alert, mildly dyspneic in no distress HENT: Normocephalic, atraumatic. Oropharynx with dry mucous membranes and otherwise unremarkable. EYES: Normal conjunctiva. Sclera non-icteric. NECK: Supple. No nuchal rigidity. FROM. MILD JVD. RESPIRATORY: Mildy dyspneic, scattered wheezes and rhonchi throughout. CARDIAC: Regular rate, normal rhythm. Extremities warm and well perfused. Pulses equal. ABDOMEN: Soft, non-distended. No tenderness to palpation. No rebound or guarding. No masses. RECTAL: Deferred. MUSCULOSKELETAL: Chest examination reveals no tenderness. The back is symmetrical on inspection without obvious abnormality. There is no CVA tenderness to palpation. No joint edema. LOWER EXTREMITIES: Calves are equal size bilaterally and non-tender. Scant LE edema. No discoloration. NEURO: Normal sensorium. No sensory or motor deficits noted. SKIN: No rash or jaundice noted. Course 1227: Past medical records reviewed. The patient was evaluated in room C10, and a complete history and physical examination were performed. 1242: I reviewed the patient's case with Dr. Mundo MOORE Hospitalist. He will evaluate the patient for further management. Consultations Consultation #1: [id number]: I reviewed the patient's case with Dr. Mundo MOORE Hospitalist. He will evaluate the patient for further management. Administered Medications Albuterol (Duoneb) 3 ml NEB Q4R PRN PRN Reason: Shortness Of Breath Or Wheezing Stop: 08/08/18 18:02 Last Admin: 07/09/18 18:34 Dose: 3 ml Metoprolol Tartrate (Lopressor) 50 mg PO BID FLYNN Stop: 08/08/18 20:59 Last Admin: 07/09/18 19:21 Dose: 50 mg Discontinued Medications Albuterol (Duoneb) 3 ml NEB NOW STA Stop: 07/09/18 12:32 Last Admin: 07/09/18 12:50 Dose: 3 ml Furosemide (Lasix) 20 mg IV NOW STA Stop: 07/09/18 12:32 Last Admin: 07/09/18 12:50 Dose: 20 mg Medical Decision Making Differential Diagnosis Differential diagnosis: Etiologies such as infections, reactive airway disease, COPD, pneumonia, pleural effusion, pulmonary edema, ARDS, pneumothorax, CHF, cardiac ischemia, cardiac tamponade, dysrhythmia, anemia, pulmonary embolism, musculoskeletal, gastrointestinal process, as well as others were entertained. Medical Records Attestation: I reviewed the patient's medical records. Home Medications Current Medication List: was personally reviewed by me Laboratory Data Attestation: I reviewed the patient's lab results. Result diagrams: 07/09/18 11:35 07/09/18 11:35 Lab Results 07/09/18 07/09/18 07/09/18 Range/Units 11:35 11:35 12:43 WBC 14.09 H (4.8-10.8) K/uL RBC 4.29 (4.2-5.4) M/uL Hgb 13.6 (12.0-16.0) g/dL Hct 41.0 (37-47) % MCV 95.6 (80-100) fL MCH 31.7 (25-34) pg MCHC 33.2 (32-36) g/dL RDW Std Deviation 49.7 H (36.4-46.3) fL RDW Coeff of Kristina 14.2 (11.5-14.5) % Plt Count 152 (130-400) K/uL MPV 11.7 H (7.4-10.4) fL Immature Gran % (Auto) 0.4 % Neut % (Auto) 87.9 % Lymph % (Auto) 4.2 % [place] % (Auto) 7.4 % Eos % (Auto) 0.0 % Baso % (Auto) 0.1 % Immature Gran # (Auto) 0.06 H (0.00-0.02) K/uL Neut # (Auto) 12.39 H (1.4-6.5) K/uL Lymph # (Auto) 0.59 L (1.2-3.4) K/uL [place] # (Auto) 1.04 H (0.11-0.59) K/uL Eos # (Auto) 0.00 (0-0.5) K/uL Baso # (Auto) 0.01 (0-0.2) K/uL VBG pH (7.36-7.41) VBG pCO2 (38-50) mmHg VBG pO2 mmHg VBG HCO3 mmol/L VBG O2 Saturation % VBG Base Excess mEq/L Barometric Pressure mm/Hg Sodium 133 L (136-145) mmol/L Potassium 3.6 (3.5-5.1) mmol/L Chloride 95 L (98-107) mmol/L Carbon Dioxide 31 (21-32) mmol/L Anion Gap 7.0 (3-11) BUN 25 H (7-18) mg/dl Creatinine 0.92 (0.6-1.2) mg/dl Est Cr Clr Drug Dosing 46.8 ml/min Est GFR ( Amer) 70.6 Est GFR (Non-Af Amer) 60.9 BUN/Creatinine Ratio 27.3 H (10-20) Glucose 111 H (70-99) mg/dl Calcium 8.1 L (8.5-10.1) mg/dl Phosphorus 4.7 (2.5-4.9) mg/dl Magnesium 2.0 (1.8-2.4) mg/dl Troponin I 0.050 H* (0-0.045) ng/ml NT-Pro-B Natriuret Pep 26907 H (0-900) pg/ml 07/09/18 07/09/18 Range/Units 12:43 19:52 WBC (4.8-10.8) K/uL RBC (4.2-5.4) M/uL Hgb (12.0-16.0) g/dL Hct (37-47) % MCV (80-100) fL MCH (25-34) pg MCHC (32-36) g/dL RDW Std Deviation (36.4-46.3) fL RDW Coeff of Kristina (11.5-14.5) % Plt Count (130-400) K/uL MPV (7.4-10.4) fL Immature Gran % (Auto) % Neut % (Auto) % Lymph % (Auto) % [place] % (Auto) % Eos % (Auto) % Baso % (Auto) % Immature Gran # (Auto) (0.00-0.02) K/uL Neut # (Auto) (1.4-6.5) K/uL Lymph # (Auto) (1.2-3.4) K/uL [place] # (Auto) (0.11-0.59) K/uL Eos # (Auto) (0-0.5) K/uL Baso # (Auto) (0-0.2) K/uL VBG pH 7.34 L (7.36-7.41) VBG pCO2 58 H (38-50) mmHg VBG pO2 64 mmHg VBG HCO3 31 mmol/L VBG O2 Saturation 91.6 % VBG Base Excess 3.4 mEq/L Barometric Pressure 731.7 mm/Hg Sodium (136-145) mmol/L Potassium (3.5-5.1) mmol/L Chloride (98-107) mmol/L Carbon Dioxide (21-32) mmol/L Anion Gap (3-11) BUN (7-18) mg/dl Creatinine (0.6-1.2) mg/dl Est Cr Clr Drug Dosing ml/min Est GFR ( Amer) Est GFR (Non-Af Amer) BUN/Creatinine Ratio (10-20) Glucose (70-99) mg/dl Calcium (8.5-10.1) mg/dl Phosphorus (2.5-4.9) mg/dl Magnesium (1.8-2.4) mg/dl Troponin I 0.044 (0-0.045) ng/ml NT-Pro-B Natriuret Pep (0-900) pg/ml Imaging Data Attestation: I personally reviewed and interpreted this imaging study as follows : Radiologist's Impression: XR chest 1V portable CLINICAL HISTORY: Shortness of breath. COMPARISON STUDY: Chest radiograph September 10, 2016. FINDINGS: Moderate S-shaped scoliosis of the thoracolumbar spine is noted. Moderate cardiomegaly is unchanged. There is no evidence for pulmonary edema. There is mitral annular calcification. The appearance of the chest is unchanged. There is pulmonary vascular congestion. IMPRESSION: 1. Pulmonary vascular congestion without pulmonary edema. 2. Moderate cardiomegaly. Electronically signed by: Giles Sanchez M.D. 07/09/2018 12:03 PM ECG Data Attestation: I personally reviewed and interpreted this ECG as follows: Indication: SOB/dyspnea Rate (beats per minute): 63 Rhythm: sinus rhythm Findings: + other (LVH with repolarization abnormality), + PAC and + PVC Comparison ECG Date: from (09/10/2016) Change: no significant change Blood Pressure Blood Pressure Findings: Elevated blood pressure Blood Pressure Disposition: further management by hospitalist DEBORAH Velarde .The patient is a pleasant 77-year-old woman with a past medical history of COPD who presents emergency department with worsening shortness of breath which began last night into this morning found to be 88% on room air by EMS and was placed on BiPAP for respiratory failure per hpi. Of note the patient had a recent outpatient echocardiogram which demonstrated a mildly reduced EF of 40-45 %. This appears new from prior evaluation where patient had normal EF in addition to having had a cardiac catheterization which demonstrated normal coronary arteries November 2016. On arrival the patient is mildly dyspneic but no acute distress, afebrile and able to be transitioned to nasal cannula with oxygen saturation 94% on 2 L nasal cannula. Vital signs otherwise stable. EKG demonstrates sinus rhythm with occasional PACs and PVCs with left ventricular hypertrophy and repolarization abnormality that is similar to prior EKGs. Chest x-ray demonstrates mild pulmonary vascular congestion. WBC 14, nonspecific. H/H and platelets within normal limits. VBG with pH of 7.34 and PCO2 of 58. Chemistry with normal renal function and no evidence of acidosis. The patient does have a new troponin elevation of 0.05 the setting of >6 hours of symptoms. BNP is elevated at 20K without prior values for comparison. Patient is not currently on diuretics and so was given initial dose of 20 mg of IV Lasix for new onset CHF as well as DuoNeb for likely bronchospastic component in the setting of her active smoking. Case was discussed with Dr. Villavicencio, [facility] hospitalist, who will evaluate the patient for admission. Impression & Plan Acute exacerbation of CHF (congestive heart failure), Elevated troponin Discharge Plan Visit Data *Final* Discharge Date/Time: 07/09/18 17:29 Chief Complaint: Respiratory Problems ED Provider: Paul Ferguson Discharge Problem: Acute exacerbation of CHF (congestive heart failure), Elevated troponin Patient Disposition: Admitted As Inpatient Discharge Instructions Interventions: ED Discharge Assessment Last Done: 07/09/18 17:29 The scribe's documentation has been prepared under my direction and personally reviewed by me in its entirety. I confirm that the note above accurately reflects all work, treatment, procedures, and medical decision making performed by me.
[2018-07-09] MEDS ORDERED: ACETAMINOPHEN 325 MG TAB PO PRN (18:03)
[2018-07-09] MEDS: ALBUT/IPRATROP 3MG/0.5MG NEB 3 ML VIAL NEB PRN ×2 (18:34→23:10)
[2018-07-09] MEDS: METOPROLOL TARTRATE 50 MG TAB PO SCH (19:21)
[2018-07-09] MEDS ORDERED: INFLUENZA ADMINISTRATION CHARGE ONE (21:00)
[2018-07-09] MEDS ORDERED: INFLUENZA VACCINE HIGH DOSE 65+ 0.5 ML SYR IM ONE (21:00)
[2018-07-10 07:00] LABS: Hematocrit (blood only) 41.4 % (37-47); Hemoglobin 13.5 g/dL (12.0-16.0); Mean Corpuscular Hgb Conc 32.6 g/dL (32-36); Mean Corpuscular Volume 95.6 fL (80-100); Platelet Count 160 K/uL (130-400); RDW Coefficient of Variation 14.4 % (11.5-14.5); RDW Standard Deviation 50.3 fL (36.4-46.3); Red Blood Count 4.33 M/uL (4.2-5.4)
[2018-07-10 07:32] LABS: Calcium 8.2 mg/dl (8.5-10.1); Creatinine Clr Calc Pharmacy 35.9 ml/min; Est GFR (African American) 58.8; Est GFR (Non-African American) 50.7; Magnesium 2.1 mg/dl (1.8-2.4); Potassium 3.3 mmol/L (3.5-5.1)
[2018-07-10 07:36] LABS: Troponin I 0.04 ng/ml (0-0.045)
[2018-07-10] MEDS: METOPROLOL TARTRATE 50 MG TAB PO SCH ×2 (07:49→20:21)
[2018-07-10] MEDS: SERTRALINE HCL 50 MG TABLET PO SCH (07:49)
[2018-07-10] MEDS: ALBUT/IPRATROP 3MG/0.5MG NEB 3 ML VIAL NEB PRN ×3 (08:55→21:30)
--- NOTE | 2018-07-10 12:48 | Hospitalist Progress Note ---
Date of Service July 10, 2018 Assessment & Plan (1) Influenza A: Oseltamavir renally dosed x 5 days Maintain contact precautions duo nebs and O2 (2) Dyspnea: Secondary to influenza and COPD exacerbation - Troponins peaked at 0.05 - EKG on admission showed biphasic T-waves in V3-V4 and TWI in V5-V6; however, stable to priors (3) Chronic systolic heart failure: Chronic systolic heart failure with possible acute systolic heart failure. Worked up initially in 11/2016 with a right and left-heart cath by Dr. Henderson which found no evidence of CAD, but did show elevated right & left-sided cardiac pressures. Concern for an infiltrative process such as amyloidosis; however, unclear what other work-up was done after that point. Echo on 2018 showed EF 45-50% with severe LVH, stable from prior. - Lasix 20mg IV given in the ED - She appears euvolemic although on admission she did have some pulmonary vascular congestion without edema. BNP was elevated at 20,287. Will hold off on further diuresis at this time - Cardiology consult - Monitor I&Os and weights (4) COPD (chronic obstructive pulmonary disease): No official diagnosis, but patient has a 30+ pack-year history of smoking - DuoNebs PRN - O2 as needed - will hold off on steroids at this time due to acute viral infection but may need to initiate if respiratory status worsens (5) Leukocytosis: Improving (6) Hypertension: PCP's note indicates HTN with sometime intermittent compliance. BP in the ED was 170/70. - Continue home metoprolol - Adjust meds as needed (7) Anxiety: History of anxiety with recent extra stressors related to grandchild's . - Continue sertraline (8) DVT prophylaxis: subq heparin, SCDs Subjective Ms. Julian is feeling unwell today though better than when she came in. She reports her cough is bad enough to cause her stomach muscles to ache but not particularly productive. No chest pain Review of Systems All systems reviewed & are unremarkable except as noted in HPI & below Physical Exam 2 Vital Signs (Past 24 Hours): Last Vital Signs Temp 37.5 C 07/10/18 07:20 Pulse 77 07/10/18 09:07 Resp 18 07/10/18 08:58 BP 152/92 H 07/10/18 07:20 Pulse Ox 88 L 07/10/18 11:54 Physical Exam: General: no distress Eyes: normal inspection, PERLL Respiratory: chest non tender, coarse throughout bilaterally, no respiratory distress, no accessory muscle use Cardiac: regular rate and rhythm, no rub or gallop, no murmur, no edema, no jvd GI/: active bowel sounds, no abd pain or tenderness, soft, non distended Extremities: normal range of motion, normal strength, non tender Neuro/Psych: alert and oriented x 3, normal mood and affect Skin: normal color, dry Results & Data Laboratory Results Abnormal lab results 07/09/18 07/09/18 07/10/18 Range/Units 12:43 12:43 06:41 WBC 12.80 H (4.8-10.8) K/uL RDW Std Deviation 50.3 H (36.4-46.3) fL MPV 12.0 H (7.4-10.4) fL VBG pH 7.34 L (7.36-7.41) VBG pCO2 58 H (38-50) mmHg Sodium (136-145) mmol/L Potassium (3.5-5.1) mmol/L Chloride (98-107) mmol/L Carbon Dioxide (21-32) mmol/L BUN (7-18) mg/dl BUN/Creatinine Ratio (10-20) Calcium (8.5-10.1) mg/dl NT-Pro-B Natriuret Pep 70451 H (0-900) pg/ml Influenza Type A Ag (Neg) 07/10/18 07/10/18 Range/Units 06:41 11:19 WBC (4.8-10.8) K/uL RDW Std Deviation (36.4-46.3) fL MPV (7.4-10.4) fL VBG pH (7.36-7.41) VBG pCO2 (38-50) mmHg Sodium 135 L (136-145) mmol/L Potassium 3.3 L (3.5-5.1) mmol/L Chloride 96 L (98-107) mmol/L Carbon Dioxide 33 H (21-32) mmol/L BUN 34 H (7-18) mg/dl BUN/Creatinine Ratio 32.0 H (10-20) Calcium 8.2 L (8.5-10.1) mg/dl NT-Pro-B Natriuret Pep (0-900) pg/ml Influenza Type A Ag Pos for Influ A A* (Neg) _ (1) Dyspnea Dyspnea type: orthopnea Qualified Code(s): R06.01 - Orthopnea
[2018-07-10 13:32] LABS: Hematocrit (blood only) 39.1 % (37-47); Hemoglobin 12.6 g/dL (12.0-16.0); Mean Corpuscular Hgb Conc 32.2 g/dL (32-36); Mean Corpuscular Volume 96.3 fL (80-100); Mean Platelet Volume 11.7 fL (7.4-10.4); Platelet Count 143 K/uL (130-400); RDW Coefficient of Variation 14.5 % (11.5-14.5); RDW Standard Deviation 51.2 fL (36.4-46.3); Red Blood Count 4.06 M/uL (4.2-5.4); White Blood Count 10.87 K/uL (4.8-10.8)
[2018-07-10] MEDS: OSELTAMIVIR PHOSPHATE SUSP 30 MG/5 ML UDP PO SCH ×2 (14:08→20:21)
[2018-07-10] MEDS ORDERED: POTASSIUM CHLORIDE 20 MEQ TABCR PO STA (14:14)
[2018-07-10] MEDS ORDERED: AMLODIPINE BESYLATE 5 MG TAB PO ONE (16:10)
[2018-07-10 16:20] LABS: Prothrombin Time 10.3 Seconds (9.0-12.0)
--- NOTE | 2018-07-10 18:47 | Cardiology Consultation ---
Date of Consultation July 10, 2018 Assessment & Plan (1) Acute exacerbation of CHF (congestive heart failure): 2. Severe concentric LVH 3. Mild mitral stenosis, MR 4. Hypertension 5. Influenza A 6. COPD 7. Paroxysmal SVT Patient here with acute dyspnea in the setting of active influenza A and suspected COPD. Patient with severe concentric LVH and some degree of chronic diastolic heart failure. Noted to have questionable congestion on chest x-ray and proBNP greater than 20,000 on admission. Suspect some component of acute heart failure contributing to patient's presenting dyspnea. Potentially triggered by influenza, increase dietary salt intake. Low suspicion for acute coronary syndrome. At present respiratory status modestly improved from admission. Net positive for hospitalization and still with some pulmonary congestion on exam today. Recommend continued diuresis. Going forward: IV Lasix 40 mg today, follow I/os, renal function Was started on amlodipine for hypertension. In the setting of paroxysmal SVT/ mitral stenosis would also increase metoprolol 100 mg twice daily Prior to discharge will likely need maintenance diuretic, heart failure teaching regarding salt restriction, daily weights. Further consideration for infiltrative cardiomyopathy workup as an outpatient We will continue to follow. Thank you for allowing us to participate in the care of this patient. Please contact with any questions. History of Present Illness Attending Physician: Ren Sanchez MD History of Present Illness Mrs. Julian is a pleasant 77-year-old woman with a history hypertension, anxiety, COPD/ongoing tobacco, severe concentric LVH, mild mitral stenosis who was admitted with acute onset dyspnea. Cardiology consulted for possible component of acute heart failure. Patient known to me from prior outpatient consultation and a cardiac catheterization in 2017. Cardiac testing in the setting of episodic dyspnea on exertion and borderline abnormal stress test. Cardiac catheterization revealed angiographically normal coronary arteries. Echo remarkable for severe LVH potentially consistent with infiltrative process. SPEP/UPEP negative at that time. LV filling pressures elevated on catheterization. Not on diuretics at baseline. Patient was admitted yesterday after he awoke the night before with acute shortness of breath. Denies any associated chest pain, palpitations. Denies any significant lower extremity edema. Has been feeling well prior to going to bed. Denies any recent changes to medications. Does state diet has been heavy and cannot, packaged foods recently. Since that time is been dealing with nonproductive cough, and generally feeling unwell. Initial workup remarkable for chest x-ray suggestive of pulmonary congestion, BNP greater than 20,000. Received 1 dose of IV Lasix 20 mg. Initial troponin at the upper limits of normal at 0.05 and a since trended down. EKG showed sinus rhythm with PACs, PVCs, LVH and repolarization abnormality similar to prior EKG. Influenza A positive. Has been treated with bronchodilators, oseltamivir. Prior cardiac testing: Echo 07/08/2018: Severe concentric LVH, LVEF 45-50%, mild MS/MR, aortic valve sclerosis Cardiac cath 11/2016: Coronaries angiographically normal. RA 9, PA 34/14 (22), LVEDP 22, thick 4.4/2.8, MV mean gradient 5.8 Dobutamine stress echo 09/2016: Severe concentric LVH borderline stress-induced hypokinesis and base to mid anterior septum, septum. Negative DSE EKG at 86% MPHR hypertensive response to dobutamine, normal resting biventricular function , mild mitral stenosis, small pericardial effusion moderate atherosclerotic plaque in the ascending aorta Allergies Allergy/AdvReac Type Severity Reaction Status Date / Time No Known Allergies Allergy Verified 07/09/18 11:11 Home Medications Home Medications Medication Instructions Recorded Confirmed Type metoprolol tartrate 50 mg PO BID 07/09/18 07/09/18 History sertraline 50 mg PO DAILY 07/09/18 07/09/18 History Patient History Medical History Hypertension (Chronic) Cervicalgia (Chronic) Surgical History H/O: hysterectomy Family History Mother Hypertension Social History marital status: Current Living Situation: Spouse Other Information That Helps Us Care for You: No Feels Safe at Home: Yes Safety Concerns: Feels Safe At This Time Smoking Status: Current every day smoker Tobacco Type: cigarettes Do You Dip or Chew Tobacco: No Second Hand Exposure: No Tobacco Cessation Education Requested by Patient: Yes Hx Alcohol Use: Yes Alcohol type: other Hx Substance Use: No Beliefs That Will Affect Care: None Communication Ability: Effective Review of Systems 10 point review of systems was completed and was otherwise negative unless stated in HPI Physical Exam 2 Vital Signs (Past 24 Hours): Last Vital Signs Temp 37.4 C 07/10/18 15:29 Pulse 88 07/10/18 17:40 Resp 20 07/10/18 16:10 BP 129/74 07/10/18 17:40 Pulse Ox 91 07/10/18 15:44 Physical Exam: General: Comfortable, no acute distress Eyes: Sclerae anicteric, extraocular movements intact HENT: Oropharynx clear mucous membranes moist Neck: Normal carotid upstrokes, no bruits. No JVD. Lungs: Coarse breath sounds with scattered wheezing, crackles at left greater than right base Cardiac: Regular rate and rhythm, no murmurs, rubs or gallops. Vascular: 2+ radial, DP and PT pulses. Abdomen: Soft, nontender, nondistended, positive bowel sounds. Extremities: Well perfused, no peripheral edema Skin: No rashes or lesions. Neuro: Nonfocal Psych: Alert orient x3, normal affect and mood Results & Data Diagnostic Findings Lower extremity arterial duplex 07/08/2018: Right AVIS 0.6, left 0.8, moderate atherosclerotic plaque without severe critical stenosis bilaterally. _ (1) Acute exacerbation of CHF (congestive heart failure) Heart failure type: systolic Qualified Code(s): I50.23 - Acute on chronic systolic (congestive) heart failure
[2018-07-10] MEDS: HEPARIN SOD 5,000 UNIT/0.5 ML VIAL SQ SCH (20:21)
[2018-07-11] MEDS ORDERED: METOPROLOL TARTRATE 1 MG/ML VIAL IV PRN ×2 (00:46→19:10)
[2018-07-11] MEDS: HEPARIN SOD 5,000 UNIT/0.5 ML VIAL SQ SCH ×2 (08:07→20:48)
[2018-07-11] MEDS: OSELTAMIVIR PHOSPHATE SUSP 30 MG/5 ML UDP PO SCH ×2 (08:09→20:49)
[2018-07-11] MEDS: SERTRALINE HCL 50 MG TABLET PO SCH (08:09)
[2018-07-11] MEDS: METOPROLOL TARTRATE 50 MG TAB PO SCH ×2 (08:40→20:49)
[2018-07-11 08:52] LABS: Basophils # (auto) 0.01 K/uL (0-0.2); Basophils % (auto) 0.1 %; Hematocrit (blood only) 39.7 % (37-47); Hemoglobin 13.1 g/dL (12.0-16.0); Immature Granulocytes # (auto) 0.02 K/uL (0.00-0.02); Immature Granulocytes % (auto) 0.3 %; Lymphocytes # (auto) 0.82 K/uL (1.2-3.4); Lymphocytes % (auto) 10.8 %; Mean Corpuscular Volume 96.4 fL (80-100); Mean Platelet Volume 12.2 fL (7.4-10.4); Monocytes # (auto) 0.85 K/uL (0.11-0.59); Monocytes % (auto) 11.2 %; Neutrophils # (auto) 5.89 K/uL (1.4-6.5); Neutrophils % (auto) 77.6 %; Platelet Count 153 K/uL (130-400); RDW Coefficient of Variation 14.4 % (11.5-14.5); RDW Standard Deviation 51.1 fL (36.4-46.3); Red Blood Count 4.12 M/uL (4.2-5.4); White Blood Count 7.59 K/uL (4.8-10.8)
[2018-07-11 09:24] LABS: Calcium 8.2 mg/dl (8.5-10.1); Creatinine Clr Calc Pharmacy 49.3 ml/min; Est GFR (African American) 86.2; Est GFR (Non-African American) 74.4; Potassium 3.6 mmol/L (3.5-5.1)
[2018-07-11] MEDS: FUROSEMIDE 40 MG in SYRINGE 0 ML IV SCH (09:55)
--- NOTE | 2018-07-11 12:12 | Cardiology Progress Note ---
Date of Service July 11, 2018 Assessment & Plan (1) Acute exacerbation of CHF (congestive heart failure): 2. Severe concentric LVH -? Infiltrative process 3. New onset with atrial fibrillation with RVR 4. Mild mitral stenosis, MR 5. Hypertension 6. Influenza A 7. COPD New onset atrial fibrillation with RVR overnight. Patient asymptomatic this morning with heart rates in the 110s. On exam well-perfused with mild residual congestion. Recommend rate control for asymptomatic A. fibagree with increasing metoprolol 100 mg twice daily, okay with heart rates in the 100s or less Continue diuresis with IV Lasix Long-term risk for thromboembolism elevated and would start anticoagulation, ideally DOAC if feasible We will continue to follow. Prior to discharge will likely need maintenance diuretic, heart failure teaching regarding salt restriction, daily weights. Further consideration for infiltrative cardiomyopathy workup as an outpatient Subjective Patient with new atrial fibrillation with RVR with heart rates to the 130s. Patient asymptomatic with A. fib. This morning states she is feeling about the same. Denies any chest pain. Breathing largely unchanged. Continued productive cough. No other new concerns. Review of Systems 10 point review of systems was completed and was otherwise negative unless stated in HPI Physical Exam 2 Vital Signs (Past 24 Hours): Last Vital Signs Temp 36.3 C L 07/11/18 11:16 Pulse 92 H 07/11/18 11:16 Resp 20 07/11/18 11:16 BP 165/94 H 07/11/18 11:16 Pulse Ox 93 07/11/18 11:16 Physical Exam: General: Comfortable, no acute distress Eyes: Sclerae anicteric, extraocular movements intact HENT: Oropharynx clear mucous membranes moist Neck: JVP approximately 8 Lungs: Coarse breath sounds, few scattered wheezes, decreased breath sounds at bases. Cardiac: Tachycardic, irregularly irregular, no murmurs Vascular: 2+ radial, DP and PT pulses. Abdomen: Soft, nontender, nondistended, positive bowel sounds. Extremities: Well perfused, no peripheral edema Skin: No rashes or lesions. Neuro: Nonfocal Psych: Alert orient x3, normal affect and mood Results & Data Diagnostic Findings EKG 07/11/2018 00: 37A. fib, ventricular rate 110, LVH, occasional PVC nonspecific ST _ (1) Acute exacerbation of CHF (congestive heart failure) Heart failure type: systolic Qualified Code(s): I50.23 - Acute on chronic systolic (congestive) heart failure
--- NOTE | 2018-07-11 13:33 | Hospitalist Progress Note ---
Date of Service July 11, 2018 Assessment & Plan (1) Influenza A: Oseltamavir renally dosed x 5 days Maintain contact precautions duo nebs and O2 (2) Dyspnea: Secondary to influenza, COPD exacerbation and acute on chronic systolic heart failure - Troponins peaked at 0.05 - EKG on admission showed biphasic T-waves in V3-V4 and TWI in V5-V6; however, stable to priors (3) Afib: New onset with RVR - increased metoprolol per cardiology rec, start anticoagulation - patient's insurance does not cover DOACs, will start Coumadin 5 mg and trend INRs - risks and benefits of anticoagulation discussed with patient and she verbalizes understanding - Coumadin teaching (4) COPD (chronic obstructive pulmonary disease): No official diagnosis, but patient has a 30+ pack-year history of smoking - DuoNebs PRN - O2 as needed (5) Chronic systolic heart failure: Acute on Chronic systolic heart failure Worked up initially in 11/2016 with a right and left-heart cath by Dr. Henderson which found no evidence of CAD, but did show elevated right & left-sided cardiac pressures. Concern for an infiltrative process such as amyloidosis; however, unclear what other work-up was done after that point. Echo on 2018 showed EF 45-50% with severe LVH, stable from prior. - On admission she did have some pulmonary vascular congestion without edema. BNP was elevated at 20,287. Continue daily IV furosemide 40 mg - Cardiology consulted - Monitor I&Os and weights (6) Leukocytosis: Improving (7) Hypertension: PCP's note indicates HTN with sometime intermittent compliance. BP in the ED was 170/70. - Continue home metoprolol - Adjust meds as needed (8) Anxiety: History of anxiety with recent extra stressors related to grandchild's . - Continue sertraline (9) DVT prophylaxis: subq heparin, SCDs Subjective Ms. Julian appears tired today. She denies sob or chest pain or any other specific complaints though she does appear to have somewhat labored breathing as we talk. She went into an A.fib RVR overnight but heart rates have improved since taking increased metoprolol this morning Review of Systems All systems reviewed & are unremarkable except as noted in HPI & below Physical Exam 2 Vital Signs (Past 24 Hours): Last Vital Signs Temp 36.3 C L 07/11/18 11:16 Pulse 92 H 07/11/18 11:16 Resp 20 07/11/18 11:16 BP 165/94 H 07/11/18 11:16 Pulse Ox 93 07/11/18 11:16 Physical Exam: General: no distress Eyes: normal inspection, PERLL Respiratory: chest non tender, coarse breath sounds bilaterally, no respiratory distress, no accessory muscle use Cardiac: regular rate and rhythm, no rub or gallop, no murmur, no edema, no jvd GI/: active bowel sounds, no abd pain or tenderness, soft, non distended Extremities: normal range of motion, normal strength, non tender Neuro/Psych: alert and oriented x 3, normal mood and affect Skin: normal color, dry Results & Data Laboratory Results Abnormal lab results 07/10/18 07/11/18 07/11/18 Range/Units 13:22 08:29 08:29 WBC 10.87 H (4.8-10.8) K/uL RBC 4.06 L 4.12 L (4.2-5.4) M/uL RDW Std Deviation 51.2 H 51.1 H (36.4-46.3) fL MPV 11.7 H 12.2 H (7.4-10.4) fL Lymph # (Auto) 0.82 L (1.2-3.4) K/uL [place] # (Auto) 0.85 H (0.11-0.59) K/uL Chloride 97 L (98-107) mmol/L Carbon Dioxide 34 H (21-32) mmol/L BUN 28 H (7-18) mg/dl BUN/Creatinine Ratio 36.0 H (10-20) Glucose 161 H (70-99) mg/dl Calcium 8.2 L (8.5-10.1) mg/dl _ (1) Dyspnea Dyspnea type: orthopnea Qualified Code(s): R06.01 - Orthopnea
[2018-07-11] MEDS: WARFARIN SOD 5 MG TAB PO SCH (16:18)
[2018-07-11] MEDS: METOPROLOL TARTRATE 1 MG/ML VIAL IV PRN (19:07)
[2018-07-12 07:14] LABS: Prothrombin Time 10.5 Seconds (9.0-12.0)
[2018-07-12] MEDS: HEPARIN SOD 5,000 UNIT/0.5 ML VIAL SQ SCH ×2 (08:28→20:19)
[2018-07-12] MEDS: FUROSEMIDE 40 MG in SYRINGE 0 ML IV SCH (08:29)
[2018-07-12] MEDS: METOPROLOL TARTRATE 50 MG TAB PO SCH ×2 (08:30→20:20)
[2018-07-12] MEDS: SERTRALINE HCL 50 MG TABLET PO SCH (08:31)
[2018-07-12] MEDS: OSELTAMIVIR PHOSPHATE SUSP 30 MG/5 ML UDP PO SCH ×2 (08:42→20:24)
[2018-07-12 08:58] LABS: BUN Creatinine Ratio 33.8 (10-20); Calcium 8.5 mg/dl (8.5-10.1); Creatinine Clr Calc Pharmacy 45.8 ml/min; Est GFR (African American) 78.8; Potassium 3.4 mmol/L (3.5-5.1)
[2018-07-12 09:35] LABS: ALC (manual) 2.35 K/uL (1.2-3.4); Hematocrit (blood only) 43.6 % (37-47); Hemoglobin 14.2 g/dL (12.0-16.0); Lymphocytes # (manual) 2.35 K/uL (1.2-3.4); Lymphocytes % (manual) 21.7 %; Mean Corpuscular Hgb Conc 32.6 g/dL (32-36); Mean Corpuscular Volume 96.7 fL (80-100); Mean Platelet Volume 12.1 fL (7.4-10.4); Monocytes # (manual) 0.28 K/uL (0.11-0.59); Monocytes % (manual) 2.6 %; Neutrophils % (manual) 75.7 %; Platelet Count 197 K/uL (130-400); RDW Coefficient of Variation 14.3 % (11.5-14.5); RDW Standard Deviation 50.8 fL (36.4-46.3); Red Blood Count 4.51 M/uL (4.2-5.4); White Blood Count 10.85 K/uL (4.8-10.8)
[2018-07-12] MEDS: methylPREDNISolone 60 MG in SYRINGE 0 ML IV SCH (10:53)
--- NOTE | 2018-07-12 11:00 | Hospitalist Progress Note ---
Date of Service July 12, 2018 Assessment & Plan (1) Influenza A: Oseltamavir renally dosed x 5 days Maintain contact precautions duo nebs and O2 (2) Dyspnea: Secondary to influenza, COPD exacerbation and acute on chronic systolic heart failure - Troponins peaked at 0.05 - EKG on admission showed biphasic T-waves in V3-V4 and TWI in V5-V6; however, stable to priors (3) Afib: New onset with RVR - increased metoprolol per cardiology rec, initiated anticoagulation - patient' s insurance does not cover DOACs - Coumadin 5 mg started 07/11 and trend INRs - risks and benefits of anticoagulation discussed with patient and she verbalizes understanding - Coumadin teaching (4) COPD (chronic obstructive pulmonary disease): No official diagnosis, but patient has a 30+ pack-year history of smoking - continues to have wheezing, coarse lungs, will change duonebs to scheduled and add solumedrol 60 mg daily - O2 as needed (5) Chronic systolic heart failure: Acute on Chronic systolic heart failure Worked up initially in 11/2016 with a right and left-heart cath by Dr. Henderson which found no evidence of CAD, but did show elevated right & left-sided cardiac pressures. Concern for an infiltrative process such as amyloidosis; however, unclear what other work-up was done after that point. Echo on 2018 showed EF 45-50% with severe LVH, stable from prior. - On admission she did have some pulmonary vascular congestion without edema. BNP was elevated at 20,287. Continue daily IV furosemide 40 mg - Cardiology consulted - Monitor I&Os and weights (6) Leukocytosis: Improving (7) Hypertension: PCP's note indicates HTN with sometime intermittent compliance. BP in the ED was 170/70. - Continue home metoprolol - Adjust meds as needed (8) Anxiety: History of anxiety with recent extra stressors related to grandchild's . - Continue sertraline (9) DVT prophylaxis: subq heparin, SCDs Subjective Ms. Julian is feeling slightly better today and appears a bit more comfortable. She has family at bedside. She is still a bit sob but denies chest pain or palpitations Review of Systems All systems reviewed & are unremarkable except as noted in HPI & below Physical Exam 2 Vital Signs (Past 24 Hours): Last Vital Signs Temp 37.2 C 07/12/18 07:48 Pulse 107 H 07/12/18 07:48 Resp 16 07/12/18 07:48 BP 160/87 H 07/12/18 07:48 Pulse Ox 95 07/12/18 07:48 Physical Exam: General: no distress Eyes: normal inspection, PERLL Respiratory: chest non tender, coarse with wheezing bilaterally, slightly labored breathing Cardiac: regular rate and rhythm, no rub or gallop, no murmur, no edema, no jvd GI/: active bowel sounds, no abd pain or tenderness, soft, non distended Extremities: normal range of motion, normal strength, non tender Neuro/Psych: alert and oriented x 3, normal mood and affect Skin: normal color, dry Results & Data Laboratory Results Abnormal lab results 07/12/18 07/12/18 Range/Units 06:48 06:48 WBC 10.85 H (4.8-10.8) K/uL RDW Std Deviation 50.8 H (36.4-46.3) fL MPV 12.1 H (7.4-10.4) fL Neutrophils # (Manual) 8.21 H (1.4-6.5) K/uL Total Absolute Neuts 8.21 H (1.4-6.5) K/uL Potassium 3.4 L (3.5-5.1) mmol/L Chloride 95 L (98-107) mmol/L Carbon Dioxide 35 H (21-32) mmol/L BUN 28 H (7-18) mg/dl BUN/Creatinine Ratio 33.8 H (10-20) _ (1) Dyspnea Dyspnea type: orthopnea Qualified Code(s): R06.01 - Orthopnea
--- NOTE | 2018-07-12 11:09 | Cardiology Progress Note ---
Date of Service July 12, 2018 Assessment & Plan (1) Acute exacerbation of CHF (congestive heart failure): 2. Severe concentric LVH -? Infiltrative process 3. New onset with atrial fibrillation with RVR 4. Mild mitral stenosis, MR 5. Hypertension 6. Influenza A 7. COPD Patient remains in atrial fibrillation but rate is now adequately controlled with increased dose of metoprolol 100 mg BID. She is asymptomatic with her afib. She was initiated on anticoagulation with warfarin. Ideally would be on NOAC but apparently insurance will not cover, we can look into this further as outpatient. On exam she is well perfused without any significant congestion. She is -1L so far today and weight is down greater than 10 kg since admission. She should be discharged on daily low dose Lasix. Will need teaching regarding low sodium diet and daily weights.Further consideration for infiltrative cardiomyopathy workup as an outpatient. Subjective Patient is feeling better overall. States breathing and cough have improved overall. No shortness of breath at rest, orthopnea, PND or edema. She has not yet been up walking. No chest pain. She remains in atrial fibrillation but heart rate has improved with increased dose of metoprolol. She is asymptomatic with afib. She was started on warfarin yesterday, apparently new agents not covered by her insurance. Physical Exam 2 Vital Signs (Past 24 Hours): Last Vital Signs Temp 37.2 C 07/12/18 07:48 Pulse 107 H 07/12/18 07:48 Resp 16 07/12/18 07:48 BP 160/87 H 07/12/18 07:48 Pulse Ox 95 07/12/18 07:48 Physical Exam: General: No acute distress. Comfortable. Eyes: Sclerae anicteric, extraocular movements intact HENT: Oropharynx clear mucous membranes moist Neck: No JVD. Lungs: Coarse breath sounds with wheezing and few bibasilar crackles. Cardiac: Irregularly irregular. No murmur, gallop or rub. Extremities/Vascular: 2+ radial, DP and PT pulses. Well perfused. No edema. Abdomen: Soft, nontender, nondistended, positive bowel sounds. Skin: No rashes or lesions. Neuro: Nonfocal Psych: Alert orient x3, normal affect and mood Results & Data Laboratory Results Laboratory Results - last 24 hr 07/12/18 07/12/18 07/12/18 06:43 06:48 06:48 WBC 10.85 H RBC 4.51 Hgb 14.2 Hct 43.6 MCV 96.7 MCH 31.5 MCHC 32.6 RDW Std Deviation 50.8 H RDW Coeff of Kristina 14.3 Plt Count 197 MPV 12.1 H Neutrophils % (Manual) 75.7 Lymphocytes % (Manual) 21.7 Monocytes % (Manual) 2.6 Neutrophils # (Manual) 8.21 H Total Absolute Neuts 8.21 H Lymphocytes # (Manual) 2.35 Total Abs Lymphocytes 2.35 Monocytes # (Manual) 0.28 PT 10.5 INR 1.0 Sodium 137 Potassium 3.4 L Chloride 95 L Carbon Dioxide 35 H Anion Gap 7.0 BUN 28 H Creatinine 0.84 Est Cr Clr Drug Dosing 45.8 Est GFR ( Amer) 78.8 Est GFR (Non-Af Amer) 68.0 BUN/Creatinine Ratio 33.8 H Glucose 97 Calcium 8.5 ECG Additional Comments: Telemetry reviewed: atrial fibrillation with rates in the 70-90s _ (1) Acute exacerbation of CHF (congestive heart failure) Heart failure type: systolic Qualified Code(s): I50.23 - Acute on chronic systolic (congestive) heart failure
[2018-07-12] MEDS ORDERED: POTASSIUM CHLORIDE 20 MEQ TABCR PO ONE (11:15)
[2018-07-12] MEDS: ALBUT/IPRATROP 3MG/0.5MG NEB 3 ML VIAL NEB SCH ×3 (11:20→19:39)
[2018-07-12] MEDS: WARFARIN SOD 5 MG TAB PO SCH (15:48)
[2018-07-13] MEDS: ALBUT/IPRATROP 3MG/0.5MG NEB 3 ML VIAL NEB SCH ×4 (07:04→19:01)
[2018-07-13 08:01] LABS: Basophils # (auto) 0.02 K/uL (0-0.2); Basophils % (auto) 0.1 %; Hematocrit (blood only) 42.5 % (37-47); Hemoglobin 13.9 g/dL (12.0-16.0); Immature Granulocytes # (auto) 0.05 K/uL (0.00-0.02); Immature Granulocytes % (auto) 0.4 %; Lymphocytes # (auto) 1.67 K/uL (1.2-3.4); Lymphocytes % (auto) 12.1 %; Mean Corpuscular Hgb Conc 32.7 g/dL (32-36); Mean Corpuscular Volume 95.7 fL (80-100); Mean Platelet Volume 11.7 fL (7.4-10.4); Monocytes # (auto) 1.35 K/uL (0.11-0.59); Monocytes % (auto) 9.8 %; Neutrophils # (auto) 10.69 K/uL (1.4-6.5); Neutrophils % (auto) 77.6 %; Platelet Count 208 K/uL (130-400); RDW Coefficient of Variation 14.2 % (11.5-14.5); Red Blood Count 4.44 M/uL (4.2-5.4); White Blood Count 13.78 K/uL (4.8-10.8)
[2018-07-13 08:05] LABS: INR 1.6 (0.9-1.1); Prothrombin Time 16.1 Seconds (9.0-12.0)
[2018-07-13 08:26] LABS: Est GFR (African American) 51.2; Est GFR (Non-African American) 44.2; Potassium 3.7 mmol/L (3.5-5.1)
[2018-07-13 08:27] LABS: BUN Creatinine Ratio 35.7 (10-20); Calcium 8.7 mg/dl (8.5-10.1)
[2018-07-13] MEDS: SERTRALINE HCL 50 MG TABLET PO SCH (08:48)
[2018-07-13] MEDS: METOPROLOL TARTRATE 50 MG TAB PO SCH ×2 (08:48→20:21)
[2018-07-13] MEDS: HEPARIN SOD 5,000 UNIT/0.5 ML VIAL SQ SCH ×2 (08:49→20:21)
[2018-07-13] MEDS: OSELTAMIVIR PHOSPHATE SUSP 30 MG/5 ML UDP PO SCH ×2 (08:53→20:21)
[2018-07-13] MEDS: methylPREDNISolone 60 MG in SYRINGE 0 ML IV SCH (08:54)
[2018-07-13] MEDS: FUROSEMIDE 40 MG in SYRINGE 0 ML IV SCH (08:54)
[2018-07-13] MEDS: FORMOTEROL 20 MCG/2 ML VIAL NEB SCH ×2 (10:17→19:01)
--- NOTE | 2018-07-13 11:42 | Hospitalist Progress Note ---
Date of Service July 13, 2018 Assessment & Plan (1) Influenza A: Oseltamavir renally dosed x 5 days Maintain contact precautions duo nebs and O2 (2) Dyspnea: Secondary to influenza, COPD exacerbation and acute on chronic systolic heart failure - Troponins peaked at 0.05 - EKG on admission showed biphasic T-waves in V3-V4 and TWI in V5-V6; however, stable to priors (3) Afib: New onset with RVR - increased metoprolol per cardiology rec, initiated anticoagulation - patient' s insurance does not cover DOACs - Coumadin 5 mg started 07/11 and trend INRs - risks and benefits of anticoagulation discussed with patient and she verbalizes understanding - Coumadin teaching (4) COPD (chronic obstructive pulmonary disease): No official diagnosis, but patient has a 30+ pack-year history of smoking - continues to have wheezing, coarse lungs, continue duonebs and solumedrol 60 mg daily, will add formoterol and chest PT - O2 as needed (5) Chronic systolic heart failure: Acute on Chronic systolic heart failure Worked up initially in 11/2016 with a right and left-heart cath by Dr. Henderson which found no evidence of CAD, but did show elevated right & left-sided cardiac pressures. Concern for an infiltrative process such as amyloidosis; however, unclear what other work-up was done after that point. Echo on 2018 showed EF 45-50% with severe LVH, stable from prior. - On admission she did have some pulmonary vascular congestion without edema. BNP was elevated at 20,287. Continue daily IV furosemide 40 mg - Cardiology consulted - Monitor I&Os and weights (6) Leukocytosis: Improving (7) Hypertension: PCP's note indicates HTN with sometime intermittent compliance. BP in the ED was 170/70. - Continue home metoprolol - Adjust meds as needed (8) Anxiety: History of anxiety with recent extra stressors related to grandchild's . - Continue sertraline (9) DVT prophylaxis: subq heparin, SCDs Subjective Ms. Julian is feeling a bit better today. Still sob with cough but feels she is improving. Heart rate is also better on the monitor. Review of Systems All systems reviewed & are unremarkable except as noted in HPI & below Physical Exam 2 Vital Signs (Past 24 Hours): Last Vital Signs Temp 37.1 C 07/13/18 11:13 Pulse 64 07/13/18 11:14 Resp 18 07/13/18 11:14 BP 154/88 H 07/13/18 11:13 Pulse Ox 95 07/13/18 11:14 Physical Exam: Abnormal lab results 07/13/18 07/13/18 07/13/18 Range/Units 07:39 07:39 07:39 WBC 13.78 H (4.8-10.8) K/uL RDW Std Deviation 50.0 H (36.4-46.3) fL MPV 11.7 H (7.4-10.4) fL Immature Gran # (A uto) 0.05 H (0.00-0.02) K/uL Neut # (Auto) 10.69 H (1.4-6.5) K/uL [place] # (Auto) 1.35 H (0.11-0.59) K/uL PT 16.1 H (9.0-12.0) [place] ds INR 1.6 H (0.9-1.1) Chloride 97 L (98-107) mmol/L Carbon Dioxide 33 H (21-32) mmol/L BUN 43 H D (7-18) mg/dl BUN/Creatinine Rat io 35.7 H (10-20) Glucose 117 H (70-99) mg/dl Results & Data Laboratory Results Abnormal lab results 07/13/18 07/13/18 07/13/18 Range/Units 07:39 07:39 07:39 WBC 13.78 H (4.8-10.8) K/uL RDW Std Deviation 50.0 H (36.4-46.3) fL MPV 11.7 H (7.4-10.4) fL Immature Gran # (Auto) 0.05 H (0.00-0.02) K/uL Neut # (Auto) 10.69 H (1.4-6.5) K/uL [place] # (Auto) 1.35 H (0.11-0.59) K/uL PT 16.1 H (9.0-12.0) Seconds INR 1.6 H (0.9-1.1) Chloride 97 L (98-107) mmol/L Carbon Dioxide 33 H (21-32) mmol/L BUN 43 H D (7-18) mg/dl BUN/Creatinine Ratio 35.7 H (10-20) Glucose 117 H (70-99) mg/dl _ (1) Dyspnea Dyspnea type: orthopnea Qualified Code(s): R06.01 - Orthopnea
[2018-07-13] MEDS: WARFARIN SOD 5 MG TAB PO SCH (17:00)
[2018-07-14] MEDS: METOPROLOL TARTRATE 1 MG/ML VIAL IV PRN (04:21)
[2018-07-14 06:02] LABS: Basophils # (auto) 0.02 K/uL (0-0.2); Basophils % (auto) 0.1 %; Hematocrit (blood only) 39.5 % (37-47); Hemoglobin 12.9 g/dL (12.0-16.0); Immature Granulocytes # (auto) 0.04 K/uL (0.00-0.02); Immature Granulocytes % (auto) 0.3 %; Lymphocytes # (auto) 1.98 K/uL (1.2-3.4); Lymphocytes % (auto) 14.8 %; Mean Corpuscular Hgb Conc 32.7 g/dL (32-36); Mean Corpuscular Volume 95.9 fL (80-100); Mean Platelet Volume 11.4 fL (7.4-10.4); Monocytes # (auto) 0.97 K/uL (0.11-0.59); Monocytes % (auto) 7.2 %; Neutrophils # (auto) 10.41 K/uL (1.4-6.5); Neutrophils % (auto) 77.6 %; Platelet Count 235 K/uL (130-400); RDW Coefficient of Variation 14.5 % (11.5-14.5); RDW Standard Deviation 50.7 fL (36.4-46.3); Red Blood Count 4.12 M/uL (4.2-5.4); White Blood Count 13.42 K/uL (4.8-10.8)
[2018-07-14 06:12] LABS: INR 2.6 (0.9-1.1); Prothrombin Time 24.8 Seconds (9.0-12.0)
[2018-07-14 06:33] LABS: BUN Creatinine Ratio 35.2 (10-20); Calcium 8.5 mg/dl (8.5-10.1); Creatinine Clr Calc Pharmacy 29.3 ml/min; Est GFR (Non-African American) 39.7
[2018-07-14] MEDS: ALBUT/IPRATROP 3MG/0.5MG NEB 3 ML VIAL NEB SCH ×4 (07:02→19:59)
[2018-07-14] MEDS: FORMOTEROL 20 MCG/2 ML VIAL NEB SCH ×2 (07:02→19:57)
[2018-07-14] MEDS: FUROSEMIDE 40 MG in SYRINGE 0 ML IV SCH (08:21)
[2018-07-14] MEDS: HEPARIN SOD 5,000 UNIT/0.5 ML VIAL SQ SCH (08:21)
[2018-07-14] MEDS: METOPROLOL TARTRATE 50 MG TAB PO SCH ×2 (08:22→20:59)
[2018-07-14] MEDS: methylPREDNISolone 60 MG in SYRINGE 0 ML IV SCH (08:23)
[2018-07-14] MEDS: OSELTAMIVIR PHOSPHATE SUSP 30 MG/5 ML UDP PO SCH ×2 (08:23→20:59)
[2018-07-14] MEDS: SERTRALINE HCL 50 MG TABLET PO SCH (08:25)
--- NOTE | 2018-07-14 12:58 | XRay Report ---
XR chest 1V portable HISTORY: adventitious breath sounds COMPARISON: Chest 07/09/2018. FINDINGS: No pneumothorax. Left basilar hazy airspace opacity persists. The heart remains enlarged. S coliosis is noted. The right lung is clear. No evidence for pulmonary edema. IMPRESSION: 1. Stable mild cardiomegaly. 2. Hazy appearance to the left lung base which could be due to a developing airspace opacity or overl zen soft tissue. Electronically signed by: Ivan Bailey M.D. 07/14/2018 12:56 PM
--- NOTE | 2018-07-14 13:46 | Hospitalist Progress Note ---
Date of Service July 14, 2018 Assessment & Plan (1) Influenza A: Oseltamavir renally dosed x 5 days - last dose 07/14 Maintain contact precautions duo nebs and O2 (2) Dyspnea: Secondary to influenza, COPD exacerbation and acute on chronic systolic heart failure - Troponins peaked at 0.05 - EKG on admission showed biphasic T-waves in V3-V4 and TWI in V5-V6; however, stable to priors - may need O2 for home - consider 2 step when ready for discharge (3) Afib: New onset with RVR - increased metoprolol per cardiology rec, initiated anticoagulation - patient' s insurance does not cover DOACs - Coumadin 5 mg started 07/11 and trend INRs - risks and benefits of anticoagulation discussed with patient and she verbalizes understanding - Coumadin teaching (4) COPD (chronic obstructive pulmonary disease): No official diagnosis, but patient has a 30+ pack-year history of smoking - continues to have wheezing, coarse lungs - continue duonebs and solumedrol 60 mg daily, formoterol and chest PT - O2 as needed (5) Chronic systolic heart failure: Acute on Chronic systolic heart failure Worked up initially in 11/2016 with a right and left-heart cath by Dr. Henderson which found no evidence of CAD, but did show elevated right & left-sided cardiac pressures. Concern for an infiltrative process such as amyloidosis; Echo on 07/08/2018 showed EF 45-50% with severe LVH, stable from prior. - On admission she did have some pulmonary vascular congestion without edema. BNP was elevated at 20,287. Hold daily IV furosemide 40 mg as patient appears dry with dry mucous membrane and increased creatinine - Cardiology consulted - Monitor I&Os and weights (6) Leukocytosis: Improving (7) Hypertension: Continues to be hypertensive, asymptomatic - Continue home metoprolol - will add 10mg lisinopril to patient's regimen for now - she should follow up with her outpatient provider after discharge (8) Anxiety: History of anxiety with recent extra stressors related to grandchild's . - Continue sertraline (9) DVT prophylaxis: Coumadin, SCDs Subjective Ms. Julian continues to be very fatigued, still coughing, still requiring supplemental O2. Review of Systems All systems reviewed & are unremarkable except as noted in HPI & below Physical Exam 2 Vital Signs (Past 24 Hours): Last Vital Signs Temp 36.5 C 07/14/18 12:03 Pulse 86 07/14/18 12:03 Resp 18 07/14/18 12:03 BP 162/96 H 07/14/18 12:03 Pulse Ox 86 L 07/14/18 12:03 Physical Exam: General: no distress Eyes: normal inspection, PERLL Respiratory: chest non tender, coarse with exp. wheezes bilaterally, no respiratory distress, no accessory muscle use Cardiac: regular rate and rhythm, no rub or gallop, no murmur, no edema, no jvd GI/: active bowel sounds, no abd pain or tenderness, soft, non distended Extremities: normal range of motion, normal strength, non tender Neuro/Psych: alert and oriented x 3, normal mood and affect Skin: normal color, dry Results & Data Laboratory Results Abnormal lab results 07/14/18 07/14/18 07/14/18 Range/Units 05:18 05:18 05:18 WBC 13.42 H (4.8-10.8) K/uL RBC 4.12 L (4.2-5.4) M/uL RDW Std Deviation 50.7 H (36.4-46.3) fL MPV 11.4 H (7.4-10.4) fL Immature Gran # (Auto) 0.04 H (0.00-0.02) K/uL Neut # (Auto) 10.41 H (1.4-6.5) K/uL [place] # (Auto) 0.97 H (0.11-0.59) K/uL PT 24.8 H (9.0-12.0) Seconds INR 2.6 H (0.9-1.1) Carbon Dioxide 35 H (21-32) mmol/L BUN 46 H (7-18) mg/dl Creatinine 1.31 H (0.6-1.2) mg/dl BUN/Creatinine Ratio 35.2 H (10-20) Glucose 111 H (70-99) mg/dl _ (1) Dyspnea Dyspnea type: orthopnea Qualified Code(s): R06.01 - Orthopnea
[2018-07-15] MEDS: METOPROLOL TARTRATE 1 MG/ML VIAL IV PRN (04:18)
[2018-07-15 06:41] LABS: Basophils # (auto) 0.02 K/uL (0-0.2); Basophils % (auto) 0.2 %; Hematocrit (blood only) 39.8 % (37-47); Hemoglobin 12.8 g/dL (12.0-16.0); Immature Granulocytes # (auto) 0.15 K/uL (0.00-0.02); Immature Granulocytes % (auto) 1.2 %; Lymphocytes # (auto) 2.52 K/uL (1.2-3.4); Mean Corpuscular Hgb Conc 32.2 g/dL (32-36); Mean Corpuscular Volume 96.1 fL (80-100); Mean Platelet Volume 11.4 fL (7.4-10.4); Monocytes % (auto) 9.2 %; Neutrophils # (auto) 8.23 K/uL (1.4-6.5); Neutrophils % (auto) 68.4 %; Platelet Count 279 K/uL (130-400); RDW Coefficient of Variation 14.4 % (11.5-14.5); RDW Standard Deviation 50.7 fL (36.4-46.3); Red Blood Count 4.14 M/uL (4.2-5.4); White Blood Count 12.02 K/uL (4.8-10.8)
[2018-07-15] MEDS: ALBUT/IPRATROP 3MG/0.5MG NEB 3 ML VIAL NEB SCH ×4 (06:59→19:20)
[2018-07-15 07:01] LABS: INR 2.5 (0.9-1.1); Prothrombin Time 24.1 Seconds (9.0-12.0)
[2018-07-15 07:09] LABS: BUN Creatinine Ratio 43.6 (10-20); Calcium 8.5 mg/dl (8.5-10.1); Creatinine Clr Calc Pharmacy 30.8 ml/min; Est GFR (African American) 48.7; Potassium 4.1 mmol/L (3.5-5.1)
[2018-07-15] MEDS: FORMOTEROL 20 MCG/2 ML VIAL NEB SCH ×2 (07:15→19:17)
[2018-07-15] MEDS: OSELTAMIVIR PHOSPHATE SUSP 30 MG/5 ML UDP PO SCH (08:15)
[2018-07-15] MEDS: METOPROLOL TARTRATE 50 MG TAB PO SCH ×2 (08:15→20:20)
[2018-07-15] MEDS: SERTRALINE HCL 50 MG TABLET PO SCH (08:16)
[2018-07-15] MEDS: methylPREDNISolone 60 MG in SYRINGE 0 ML IV SCH (08:16)
[2018-07-15] MEDS: FUROSEMIDE 20 MG TAB PO SCH (08:16)
[2018-07-15] MEDS ORDERED: LISINOPRIL 10 MG TAB PO SCH (09:00)
[2018-07-15] MEDS ORDERED: LISINOPRIL 10 MG TAB PO ONE (09:30)
--- NOTE | 2018-07-15 15:11 | Hospitalist Progress Note ---
Date of Service July 15, 2018 Assessment & Plan (1) Influenza A: (2) Dyspnea: (3) Afib: (4) COPD (chronic obstructive pulmonary disease): (5) Chronic systolic heart failure: (6) Leukocytosis: (7) Hypertension: (8) Anxiety: (9) DVT prophylaxis: Old white female admitted on July 09, 2018 because of influenza A and COPD exacerbation Influenza A: Stable improving, has completed Oseltamavir renally dosed x 5 days , patient has no obvious cough, therefore okay to be off droplet isolation COPD exacerbation, and acute on chronic CHF systolic exacerbation Dyspnea: Secondary to influenza, COPD exacerbation and acute on chronic systolic heart failure - Troponins peaked at 0.05 - EKG on admission showed biphasic T-waves in V3-V4 and TWI in V5-V6; however, stable to priors - may need O2 for home - consider 2 step when ready for discharge, New onset with RVR, rate controlled, Continue metoprolol initiated anticoagulation - patient's insurance does not cover DOACs - Coumadin 5 mg started 07/11 and trend INRs - risks and benefits of anticoagulation discussed with patient and she verbalizes understanding - Coumadin teaching Possible COPD exacerbation with history of 30+ pack-year of smoking Has been on Solumedrol 60 mg daily, will change to prednisone 30 mg p.o. twice daily and will have slowly tapering b/c continues to have wheezing, coarse lungs - continue duonebs , formoterol and chest PT O2 as needed Chronic systolic heart failure: Worked up initially in 11/2016 with a right and left-heart cath by Dr. Henderson which found no evidence of CAD, but did show elevated right & left-sided cardiac pressures. Concern for an infiltrative process such as amyloidosis; Echo on 07/08/2018 showed EF 45-50% with severe LVH, stable from prior. On admission she did have some pulmonary vascular congestion without edema. BNP was elevated at 20,287. Hypertension, anxiety, stable continue current medication, DVT prophylaxis which is on Coumadin, Has ordered increase activity PTOT Subjective Sitting up in chair, still need oxygen however she does not need oxygen at home Per nursing staff report her oxygen was dropped to 80s when off nasal cannula oxygen, Reported generalized weakness, cough and shortness of breath, a few wheezing, Review of Systems Constitutional: Positive weakness, or fatigue Respiratory: See HPI Cardiac: No chest pain, No orthopnea, No PND, Abdomen: No pain, No nausea, No vomiting, No diarrhea, Musculoskeletal: No joint pain, No muscle pain, No swelling, No calf pain, No problem reported : No dysuria, No urinary frequency, No incontinence, No hematuria Neurologic: No paralysis, No weakness, No numbness/tingling, Psychiatric: No depression symptoms, No anhedonism, No anxiety Heme: No abnormal bleeding/bruising, No clotting problems, No swollen lymph nodes, No night sweats Skin: No rash, No itch, No new/changing skin lesions, Physical Exam 2 Vital Signs (Past 24 Hours): Last Vital Signs Temp 36.8 C 07/15/18 14:26 Pulse 77 07/15/18 14:53 Resp 18 07/15/18 14:53 BP 149/78 H 07/15/18 14:26 Pulse Ox 94 07/15/18 14:53 Physical Exam: General Appearance: Frail,, chronically ill looking, on nasal cannula oxygen, occasional wheezing in the conversation, WD/WN, no apparent distress, Eyes: normal inspection, PERRL, EOMI, sclerae normal ENT: normal ENT inspection, hearing grossly normal, pharynx normal Neck: supple, no adenopathy, thyroid normal, no JVD, no carotid bruits, trachea midline Respiratory/Chest: chest non-tender, decreased breath sounds, no respiratory distress, sporadic rales / wheezing Cardiovascular: regular rate, rhythm, no JVD, no murmur Abdomen: normal bowel sounds, non tender, soft, no organomegaly, Extremities: normal range of motion, non-tender, normal inspection, no pedal edema, no calf tenderness, normal capillary refill , pelvis stable, joint has no limited range of motion, capillary refill is normal, no cyanosis clubbing Neurologic/Psychiatric: physician II-XII nml as tested, no motor/sensory deficits, alert, normal mood/affect, oriented x 3 Skin: normal color, warm/dry, no rash Lymphatic: no adenopathy Results & Data Laboratory Results Laboratory Results - last 24 hr 07/15/18 07/15/18 07/15/18 05:51 05:51 05:51 WBC 12.02 H RBC 4.14 L Hgb 12.8 Hct 39.8 MCV 96.1 MCH 30.9 MCHC 32.2 RDW Std Deviation 50.7 H RDW Coeff of Kristina 14.4 Plt Count 279 MPV 11.4 H Immature Gran % (Auto) 1.2 Neut % (Auto) 68.4 Lymph % (Auto) 21.0 [place] % (Auto) 9.2 Eos % (Auto) 0.0 Baso % (Auto) 0.2 Immature Gran # (Auto) 0.15 H Neut # (Auto) 8.23 H Lymph # (Auto) 2.52 [place] # (Auto) 1.10 H Eos # (Auto) 0.00 Baso # (Auto) 0.02 PT 24.1 H INR 2.5 H Sodium 137 Potassium 4.1 Chloride 98 Carbon Dioxide 36 H Anion Gap 3.0 BUN 54 H Creatinine 1.25 H Est Cr Clr Drug Dosing 30.8 Est GFR ( Amer) 48.7 Est GFR (Non-Af Amer) 42.0 BUN/Creatinine Ratio 43.6 H Glucose 96 Calcium 8.5 Magnesium 2.0 _ (1) Dyspnea Dyspnea type: orthopnea Qualified Code(s): R06.01 - Orthopnea
[2018-07-15] MEDS: WARFARIN SOD 2.5 MG TAB PO SCH (17:03)
[2018-07-15] MEDS: predniSONE 10 MG TABLET PO SCH (20:19)
[2018-07-16] MEDS: METOPROLOL TARTRATE 1 MG/ML VIAL IV PRN ×2 (03:57→16:40)
[2018-07-16] MEDS: ALBUT/IPRATROP 3MG/0.5MG NEB 3 ML VIAL NEB SCH ×4 (06:48→19:35)
[2018-07-16] MEDS: FORMOTEROL 20 MCG/2 ML VIAL NEB SCH ×2 (06:48→19:35)
[2018-07-16 07:13] LABS: Hematocrit (blood only) 40.2 % (37-47); Hemoglobin 12.9 g/dL (12.0-16.0); Immature Granulocytes # (auto) 0.25 K/uL (0.00-0.02); Immature Granulocytes % (auto) 2.6 %; Lymphocytes # (auto) 1.86 K/uL (1.2-3.4); Lymphocytes % (auto) 19.5 %; Mean Corpuscular Hgb Conc 32.1 g/dL (32-36); Mean Corpuscular Volume 96.6 fL (80-100); Mean Platelet Volume 11.1 fL (7.4-10.4); Monocytes # (auto) 0.36 K/uL (0.11-0.59); Monocytes % (auto) 3.8 %; Neutrophils # (auto) 7.06 K/uL (1.4-6.5); Neutrophils % (auto) 74.1 %; Platelet Count 251 K/uL (130-400); RDW Coefficient of Variation 14.3 % (11.5-14.5); RDW Standard Deviation 50.9 fL (36.4-46.3); Red Blood Count 4.16 M/uL (4.2-5.4); White Blood Count 9.53 K/uL (4.8-10.8)
[2018-07-16 07:47] LABS: BUN Creatinine Ratio 45.2 (10-20); Calcium 8.4 mg/dl (8.5-10.1); Creatinine Clr Calc Pharmacy 34.9 ml/min; Est GFR (African American) 56.9; Est GFR (Non-African American) 49.1; Magnesium 2.2 mg/dl (1.8-2.4); Potassium 4.3 mmol/L (3.5-5.1)
[2018-07-16] MEDS: METOPROLOL TARTRATE 50 MG TAB PO SCH ×2 (07:53→20:21)
[2018-07-16] MEDS: FUROSEMIDE 20 MG TAB PO SCH ×2 (07:54→15:16)
[2018-07-16] MEDS: SERTRALINE HCL 50 MG TABLET PO SCH (07:54)
[2018-07-16] MEDS: LISINOPRIL 20 MG TAB PO SCH (07:54)
[2018-07-16] MEDS: predniSONE 10 MG TABLET PO SCH ×2 (07:54→20:20)
[2018-07-16 07:58] LABS: Phosphorus 3.7 mg/dl (2.5-4.9)
[2018-07-16] MEDS ORDERED: AMLODIPINE BESYLATE 5 MG TAB PO ONE (08:52)
[2018-07-16] MEDS ORDERED: AMLODIPINE BESYLATE 5 MG TAB PO SCH (09:30)
[2018-07-16 10:13] LABS: T4 Free Thyroxine 0.88 ng/dl (0.8-1.6)
--- NOTE | 2018-07-16 14:17 | Hospitalist Progress Note ---
Date of Service July 16, 2018 Assessment & Plan (1) Influenza A: (2) Dyspnea: (3) Afib: (4) COPD (chronic obstructive pulmonary disease): (5) Chronic systolic heart failure: (6) Leukocytosis: (7) Hypertension: (8) Anxiety: (9) DVT prophylaxis: 77 yo Old white female admitted on July 09, 2018 because of influenza A and COPD exacerbation Influenza A: Stable improving, has completed Oseltamavir renally dosed x 5 days , patient has no obvious cough, has be off droplet isolation COPD exacerbation, and acute on chronic CHF systolic exacerbation Dyspnea: Secondary to influenza, COPD exacerbation and acute on chronic systolic heart failure - Troponins peaked at 0.05 - EKG on admission showed biphasic T-waves in V3-V4 and TWI in V5-V6; however, stable to priors - may need O2 for home - consider 2 step when ready for discharge, New onset with RVR, rate controlled, Continue metoprolol initiated anticoagulation - patient's insurance does not cover DOACs - Coumadin 5 mg started 07/11 and trend INRs, INR is 2.5 today Possible COPD exacerbation with history of 30+ pack-year of smoking Continue prednisone 30 mg p.o. twice daily and will have slowly tapering b/c continues to have wheezing, coarse lungs - continue duonebs , formoterol and chest PT O2 as needed Chronic systolic heart failure: Worked up initially in 11/2016 with a right and left-heart cath by Dr. Henderson which found no evidence of CAD, but did show elevated right & left-sided cardiac pressures. Concern for an infiltrative process such as amyloidosis; Echo on 07/08/2018 showed EF 45-50% with severe LVH, stable from prior. On admission she did have some pulmonary vascular congestion without edema. BNP was elevated at 20,287. Accelerated hypertension, has maximized Toprol 100 mg daily, and lisinopril 20 mg p.o. daily, patient is on amlodipine as well Because of uncontrolled hypertension, will check renal A duplex to make sure no renal artery stenosis anxiety, stable continue current medication, DVT prophylaxis which is on Coumadin, Subjective Generally doing good, no complaint, however blood pressure was significant high even increase the blood pressure medicine, therapist to feel patient do not need oxygen because she oxygen good during the therapy Occasional cough otherwise eating drinking okay Review of Systems Constitutional: Positive e weakness, or fatigue Respiratory: mild cough, no sputum, wheezing, or dyspnea on exertion Cardiac: No chest pain, No orthopnea, No PND, No claudication, No palpitations , Abdomen: No pain, No nausea, No vomiting, No diarrhea, Musculoskeletal: No joint pain, No muscle pain, No swelling, No calf pain, No problem reported : No dysuria, No urinary frequency, No incontinence, No hematuria Neurologic: No paralysis, No weakness, No numbness/tingling, Psychiatric: No depression symptoms, No anhedonism, No anxiety, No insomnia, Heme: No abnormal bleeding/bruising, No clotting problems, Skin: No rash, No itch, No new/changing skin lesions, No color change, No bleeding Physical Exam 2 Vital Signs (Past 24 Hours): Last Vital Signs Temp 36.7 C 07/16/18 11:43 Pulse 75 07/16/18 11:43 Resp 18 07/16/18 11:43 BP 162/98 H 07/16/18 12:10 Pulse Ox 90 07/16/18 11:43 Physical Exam: eneral Appearance: Frail,, chronically ill looking, on nasal cannula oxygen, WD/WN, no apparent distress, Eyes: normal inspection, PERRL, EOMI, sclerae normal ENT: normal ENT inspection, hearing grossly normal, pharynx normal Neck: supple, no adenopathy, thyroid normal, no JVD, no carotid bruits, trachea midline Respiratory/Chest: chest non-tender, decreased breath sounds, no respiratory distress, no wheezing Cardiovascular: regular rate, rhythm, no JVD, no murmur Abdomen: normal bowel sounds, non tender, soft, no organomegaly, Extremities: normal range of motion, non-tender, normal inspection, no pedal edema, no calf tenderness, normal capillary refill , pelvis stable, joint has no limited range of motion, capillary refill is normal, no cyanosis clubbing Neurologic/Psychiatric: bench technician II-XII nml as tested, no motor/sensory deficits, alert, normal mood/affect, oriented x 3 Skin: normal color, warm/dry, no rash Lymphatic: no adenopathy Results & Data Laboratory Results Laboratory Results - last 24 hr 07/16/18 07/16/18 07/16/18 06:25 06:25 08:00 WBC 9.53 RBC 4.16 L Hgb 12.9 Hct 40.2 MCV 96.6 MCH 31.0 MCHC 32.1 RDW Std Deviation 50.9 H RDW Coeff of Kristina 14.3 Plt Count 251 MPV 11.1 H Immature Gran % (Auto) 2.6 Neut % (Auto) 74.1 Lymph % (Auto) 19.5 [place] % (Auto) 3.8 Eos % (Auto) 0.0 Baso % (Auto) 0.0 Immature Gran # (Auto) 0.25 H Neut # (Auto) 7.06 H Lymph # (Auto) 1.86 [place] # (Auto) 0.36 Eos # (Auto) 0.00 Baso # (Auto) 0.00 Sodium 138 Potassium 4.3 Chloride 99 Carbon Dioxide 36 H Anion Gap 3.0 BUN 50 H Creatinine 1.10 Est Cr Clr Drug Dosing 34.9 Est GFR ( Amer) 56.9 Est GFR (Non-Af Amer) 49.1 BUN/Creatinine Ratio 45.2 H Glucose 149 H Calcium 8.4 L Phosphorus 3.7 Magnesium 2.2 NT-Pro-B Natriuret Pep 32458 H TSH 0.149 L Free T4 Free T3 Stl C. diff Tox B Gene Stl C. diff [id number] Cancelled C. difficile Tox B Gene Cancelled 07/16/18 07/16/18 07/16/18 08:00 09:18 09:18 WBC RBC Hgb Hct MCV MCH MCHC RDW Std Deviation RDW Coeff of Kristina Plt Count MPV Immature Gran % (Auto) Neut % (Auto) Lymph % (Auto) [place] % (Auto) Eos % (Auto) Baso % (Auto) Immature Gran # (Auto) Neut # (Auto) Lymph # (Auto) [place] # (Auto) Eos # (Auto) Baso # (Auto) Sodium Potassium Chloride Carbon Dioxide Anion Gap BUN Creatinine Est Cr Clr Drug Dosing Est GFR ( Amer) Est GFR (Non-Af Amer) BUN/Creatinine Ratio Glucose Calcium Phosphorus Magnesium NT-Pro-B Natriuret Pep TSH 0.191 L Free T4 0.88 Free T3 0.97 L Stl C. diff Tox B Gene Neg C.diff Toxin B Stl C. diff [id number] C. difficile Tox B Gene _ (1) Dyspnea Dyspnea type: orthopnea Qualified Code(s): R06.01 - Orthopnea
[2018-07-16] MEDS: WARFARIN SOD 2.5 MG TAB PO SCH (15:16)
--- NOTE | 2018-07-16 19:21 | Ultrasound Report ---
Study: Renal arterial Doppler HISTORY: Hypertension. FINDINGS: Right kidney measures 10 cm maximum dimension. Several small cysts are present. Velocity ch aracteristics are unremarkable. Left kidney is greatest dimension 9.8 cm. Velocity characteristics are unremarkable. note is made of an abdominal aortic aneurysm measuring 5 x 6 cm in maximum transaxial dimension. It i s partially clot filled. IMPRESSION:: 1. No evidence for renal arterial stenosis. 2. Several small renal cysts. 3. No evidence for hydronephrosis. 4. Partially clot filled abdominal aortic aneurysm having maximum transaxial measurement of 6 x 5 cm. Electronically signed by: Jerardo Shaikh M.D. 07/16/2018 7:20 PM
[2018-07-17] MEDS: METOPROLOL TARTRATE 1 MG/ML VIAL IV PRN ×3 (04:34→10:50)
[2018-07-17] MEDS: FORMOTEROL 20 MCG/2 ML VIAL NEB SCH ×2 (07:05→19:07)
[2018-07-17] MEDS: ALBUT/IPRATROP 3MG/0.5MG NEB 3 ML VIAL NEB SCH ×4 (07:10→19:07)
[2018-07-17 08:15] LABS: INR 2.7 (0.9-1.1); Prothrombin Time 25.5 Seconds (9.0-12.0)
[2018-07-17] MEDS: FUROSEMIDE 20 MG TAB PO SCH ×2 (08:22→16:50)
[2018-07-17] MEDS: LISINOPRIL 20 MG TAB PO SCH (08:22)
[2018-07-17] MEDS: SERTRALINE HCL 50 MG TABLET PO SCH (08:22)
[2018-07-17] MEDS: METOPROLOL TARTRATE 50 MG TAB PO SCH ×2 (08:22→20:03)
[2018-07-17] MEDS: AMLODIPINE BESYLATE 5 MG TAB PO SCH (09:00)
[2018-07-17] MEDS: predniSONE 20 MG TAB PO SCH ×2 (09:00→20:02)
--- NOTE | 2018-07-17 15:17 | Hospitalist Progress Note ---
Date of Service July 17, 2018 Assessment & Plan (1) Influenza A: (2) Dyspnea: (3) Afib: (4) COPD (chronic obstructive pulmonary disease): (5) Chronic systolic heart failure: (6) Leukocytosis: (7) Hypertension: (8) Anxiety: (9) DVT prophylaxis: 77 yo Old white female admitted on July 09, 2018 because of influenza A and COPD exacerbation, and recent 3 days has accelerated hypertension and blood pressure even getting higher today Accelerated hypertensio systolic more than 200, diastolic more than 120 has maximized Metoprol 100 twice daily, and lisinopril 20 mg p.o. daily, increase amlodipine to 10 mg p.o. daily has hecked renal A duplex , no renal artery stenosis For accelerated hypertension I want to rule out secondary hypertension such as Conn syndrome, Arnold syndrome, pheochromocytoma, labs ordered Influenza A: Stable improving, has completed Oseltamavir dosed x 5 days, patient has no obvious cough, has be off droplet isolation COPD exacerbation, and acute on chronic CHF systolic exacerbation Dyspnea: Secondary to influenza, COPD exacerbation and acute on chronic systolic heart failure, has been stable, on Lasix and beta-bria and KEYANNA inhibitor - Troponins peaked at 0.05 - EKG on admission showed biphasic T-waves in V3-V4 and TWI in V5-V6; however, stable to priors -has taper off nasal cannula oxygen New onset afib with RVR, rate controlled, Continue metoprolol initiated anticoagulation - patient's insurance does not cover DOACs - Coumadin 5 mg started 07/11 and trend INRs, INR is 2.7 today Possible COPD exacerbation with history of 30+ pack-year of smoking Continue prednisone 30 mg p.o. twice daily and will have slowly tapering b/c continues to have wheezing, coarse lungs - continue duonebs , formoterol and chest PT O2 as needed Chronic systolic heart failure: Worked up initially in 11/2016 with a right and left-heart cath by Dr. Henderson which found no evidence of CAD, but did show elevated right & left-sided cardiac pressures. Concern for an infiltrative process such as amyloidosis; Echo on 07/08/2018 showed EF 45-50% with severe LVH, stable from prior. On admission she did have some pulmonary vascular congestion without edema, will need to follow-up with roll up helper anxiety, stable continue current medication, DVT prophylaxis which is on Coumadin, Pending rehab after blood pressure better control Subjective Significant elevated blood pressure systolic more than 200 Otherwise doing okay denies dizziness palpitation blurred vision or double vision Denies any hx of significant history of dizziness palpitation blurred vision or double vision Occasional cough otherwise eating drinking okay Review of Systems Constitutional: Positive e weakness, or fatigue Respiratory: mild cough, no sputum, wheezing, or dyspnea on exertion Cardiac: No chest pain, No orthopnea, No PND, No claudication, No palpitations , Abdomen: No pain, No nausea, No vomiting, No diarrhea, Musculoskeletal: No joint pain, No muscle pain, No swelling, No calf pain, No problem reported : No dysuria, No urinary frequency, No incontinence, No hematuria Neurologic: No paralysis, No weakness, No numbness/tingling, Psychiatric: No depression symptoms, No anhedonism, No anxiety, No insomnia, Heme: No abnormal bleeding/bruising, No clotting problems, Skin: No rash, No itch, No new/changing skin lesions, No color change, No bleeding Cardiovascular: + dyspnea, + dyspnea on exertion and + orthopnea; no chest pain , no palpitations and no syncope Physical Exam 2 Vital Signs (Past 24 Hours): Last Vital Signs Temp 36.8 C 07/17/18 15:04 Pulse 82 07/17/18 15:04 Resp 18 07/17/18 15:04 BP 152/82 H 07/17/18 15:04 Pulse Ox 91 07/17/18 15:04 Physical Exam: General Appearance: Frail,, chronically ill looking, on nasal cannula oxygen, occasional wheezing in the conversation, WD/WN, no apparent distress, Eyes: normal inspection, PERRL, EOMI, sclerae normal ENT: normal ENT inspection, hearing grossly normal, pharynx normal Neck: supple, no adenopathy, thyroid normal, no JVD, no carotid bruits, trachea midline Respiratory/Chest: chest non-tender, decreased breath sounds, no respiratory distress, sporadic rales / wheezing Cardiovascular: regular rate, rhythm, no JVD, no murmur Abdomen: normal bowel sounds, non tender, soft, no organomegaly, Extremities: normal range of motion, non-tender, normal inspection, no pedal edema, no calf tenderness, normal capillary refill , pelvis stable, joint has no limited range of motion, capillary refill is normal, no cyanosis clubbing Neurologic/Psychiatric: biological inspector II-XII nml as tested, no motor/sensory deficits, alert, normal mood/affect, oriented x 3 Skin: normal color, warm/dry, no rash Lymphatic: no adenopathy Results & Data Laboratory Results Laboratory Results - last 24 hr 07/17/18 07/17/18 07:52 08:38 PT 25.5 H INR 2.7 H Random Cortisol 14.41 _ (1) Dyspnea Dyspnea type: orthopnea Qualified Code(s): R06.01 - Orthopnea
[2018-07-17] MEDS: WARFARIN SOD 2.5 MG TAB PO SCH (16:50)
[2018-07-18] MEDS: METOPROLOL TARTRATE 1 MG/ML VIAL IV PRN (04:42)
[2018-07-18] MEDS ORDERED: HydrALAZINE HCL 20 MG/ML VIAL IV ONE (06:23)
[2018-07-18] MEDS: FORMOTEROL 20 MCG/2 ML VIAL NEB SCH ×2 (07:26→19:50)
[2018-07-18] MEDS: ALBUT/IPRATROP 3MG/0.5MG NEB 3 ML VIAL NEB SCH ×4 (07:26→19:29)
[2018-07-18] MEDS: LISINOPRIL 20 MG TAB PO SCH (08:19)
[2018-07-18] MEDS: METOPROLOL TARTRATE 50 MG TAB PO SCH ×2 (08:19→20:10)
[2018-07-18] MEDS: AMLODIPINE BESYLATE 5 MG TAB PO SCH (08:19)
[2018-07-18] MEDS: FUROSEMIDE 20 MG TAB PO SCH ×2 (08:19→16:09)
[2018-07-18] MEDS: SERTRALINE HCL 50 MG TABLET PO SCH (08:19)
[2018-07-18] MEDS: predniSONE 10 MG TABLET PO SCH ×2 (08:22→20:10)
[2018-07-18 08:23] LABS: Calcium 8.4 mg/dl (8.5-10.1); Creatinine Clr Calc Pharmacy 36.6 ml/min; Est GFR (African American) 60.2; Est GFR (Non-African American) 51.9; Potassium 3.7 mmol/L (3.5-5.1)
[2018-07-18] MEDS: WARFARIN SOD 2.5 MG TAB PO SCH (16:08)
[2018-07-19] MEDS: METOPROLOL TARTRATE 1 MG/ML VIAL IV PRN (04:24)
[2018-07-19] MEDS: ALBUT/IPRATROP 3MG/0.5MG NEB 3 ML VIAL NEB SCH ×4 (07:12→19:05)
[2018-07-19] MEDS: FORMOTEROL 20 MCG/2 ML VIAL NEB SCH ×2 (07:12→19:04)
[2018-07-19 07:35] LABS: INR 2.9 (0.9-1.1); Prothrombin Time 27.8 Seconds (9.0-12.0)
[2018-07-19 08:01] LABS: BUN Creatinine Ratio 46.2 (10-20); Calcium 8.1 mg/dl (8.5-10.1); Creatinine Clr Calc Pharmacy 37.7 ml/min; Est GFR (African American) 62.3; Est GFR (Non-African American) 53.8; Magnesium 1.9 mg/dl (1.8-2.4); Potassium 3.6 mmol/L (3.5-5.1)
[2018-07-19] MEDS: predniSONE 10 MG TABLET PO SCH (08:18)
[2018-07-19] MEDS: METOPROLOL TARTRATE 50 MG TAB PO SCH (08:18)
[2018-07-19] MEDS: AMLODIPINE BESYLATE 5 MG TAB PO SCH (08:18)
[2018-07-19] MEDS: LISINOPRIL 20 MG TAB PO SCH (08:19)
[2018-07-19] MEDS: SERTRALINE HCL 50 MG TABLET PO SCH (08:19)
[2018-07-19] MEDS: FUROSEMIDE 40 MG TAB PO SCH (08:22)
[2018-07-19] MEDS: HydrALAZINE 10 MG TAB PO SCH ×2 (08:22→14:13)
--- NOTE | 2018-07-19 12:41 | Hospitalist Progress Note ---
Date of Service July 19, 2018 Assessment & Plan (1) Influenza A: (2) Dyspnea: (3) Afib: (4) COPD (chronic obstructive pulmonary disease): (5) Chronic systolic heart failure: (6) Leukocytosis: (7) Hypertension: (8) Anxiety: (9) DVT prophylaxis: 77 yo Old white female admitted on July 09, 2018 because of influenza A and COPD exacerbation, and recent 3 days has accelerated hypertension and blood pressure even getting higher today Accelerated hypertensio systolic more than 200, diastolic more than 120 has maximized Metoprol 100 twice daily, and lisinopril 20 mg p.o. daily, increase amlodipine to 10 mg p.o. daily has checked renal A duplex , no renal artery stenosis For accelerated hypertension I want to rule out secondary hypertension such as Conn syndrome, [place] syndrome, pheochromocytoma, labs ordered, results pending Call to PCP today, PCP recommend labetalol 200mg 3 times daily possible better and then metoprolol, will discontinue metoprolol and started no better Also request cardiology to reevaluation patient because a history of significant abnormal echo Influenza A: has completed Oseltamavir dosed x 5 days, patient has no obvious cough, has be off droplet isolation COPD exacerbation, and acute on chronic CHF systolic exacerbation Dyspnea: Secondary to influenza, COPD exacerbation and acute on chronic systolic heart failure, has been stable, on Lasix and beta-bria and KEYANNA inhibitor - Troponins peaked at 0.05 - EKG on admission showed biphasic T-waves in V3-V4 and TWI in V5-V6; however, stable to priors -has taper off nasal cannula oxyge -Change Lasix to 40 mg p.o. daily, renal tolerate well New onset afib with RVR, rate controlled, Continue labetalol initiated anticoagulation - patient's insurance does not cover DOACs - Coumadin 5 mg started 07/11 and trend INRs, INR is 2.9 today Possible COPD exacerbation with history of 30+ pack-year of smoking Has been tapering oral prednisone, O2 as needed Possible acute on chronic systolic heart failure: Worked up initially in 11/2016 with a right and left-heart cath by Dr. Henderson which found no evidence of CAD, but did show elevated right & left-sided cardiac pressures. 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, beta-bria, and on oral diuretic Lasix 40 daily anxiety, stable continue current medication, DVT prophylaxis which is on Coumadin, Patient general condition improved, she has been out of bed to walk, will have PT OT double check if safe to go home , and possible going home soon after blood pressure better controlled Subjective doing okay, blood pressure a little bit better, however still at 160s over 90s denies dizziness palpitation blurred vision or double vision Denies any hx of significant episodes of dizziness palpitation blurred vision or double vision Occasional cough otherwise eating drinking okay Review of Systems Constitutional: Positive e weakness, or fatigue Respiratory: mild cough, no sputum, wheezing, or dyspnea on exertion Cardiac: No chest pain, No orthopnea, No PND, No claudication, No palpitations , Abdomen: No pain, No nausea, No vomiting, No diarrhea, Musculoskeletal: No joint pain, No muscle pain, No swelling, No calf pain, No problem reported : No dysuria, No urinary frequency, No incontinence, No hematuria Neurologic: No paralysis, No weakness, No numbness/tingling, Psychiatric: No depression symptoms, No anhedonism, No anxiety, No insomnia, Heme: No abnormal bleeding/bruising, No clotting problems, Skin: No rash, No itch, No new/changing skin lesions, No color change, No bleeding Physical Exam 2 Vital Signs (Past 24 Hours): Last Vital Signs Temp 37.3 C 07/19/18 11:18 Pulse 87 07/19/18 11:18 Resp 16 07/19/18 11:18 BP 160/97 H 07/19/18 11:18 Pulse Ox 91 07/19/18 11:18 Physical Exam: General Appearance: Frail,, chronically ill looking, normal oxygen occasional cough in the conversation, WD/WN, no apparent distress, Eyes: normal inspection, PERRL, EOMI, sclerae normal ENT: normal ENT inspection, hearing grossly normal, pharynx normal Neck: supple, no adenopathy, thyroid normal, no JVD, no carotid bruits, trachea midline Respiratory/Chest: chest non-tender, decreased breath sounds, no respiratory distress, sporadic rales / wheezing Cardiovascular: regular rate, rhythm, no JVD, no murmur Abdomen: normal bowel sounds, non tender, soft, no organomegaly, Extremities: normal range of motion, non-tender, normal inspection, no pedal edema, no calf tenderness, normal capillary refill , pelvis stable, joint has no limited range of motion, capillary refill is normal, no cyanosis clubbing Neurologic/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
[2018-07-19] MEDS: LABETALOL HCL 200 MG TAB PO SCH ×2 (14:15→19:54)
--- NOTE | 2018-07-19 15:49 | Cardiology Progress Note ---
Date of Service July 19, 2018 Assessment & Plan (1) Hypertension: Bismark Julian is a 77yo F with a PMHx of HTN, anxiety, COPD, tobacco abuse , severe concentric LVH, and MS originally admitted with influenza A and acute on chronic COPD exacerbation and acute exacerbation of CHF who has had 3 days of increased hypertension with a peak systolic BP of 217 on 07/17. She has been converted from oral metoprolol to labetelol 200mg TID with normalization of her blood pressure to 112/68 today after one dose. Hypertension - Unclear etiology. She is net +3L of fluid over admission although her weight decreased from 65kg to 53kg after initial diuresis and has been maintained at about that level since 07/18. No increased stress, asymptomatic - No signs of stroke - Clinically euvolemic on exam, no JVD or rales were appreciated. - Renal artery duplex shows no signs of renal artery stenosis - Random cortisol, aldosterone, renin, and plasma metanephrines pending to evaluate for Conns, pheo, and cushings. - Low suspicion for pheo given she is asymptomatic without diaphoresis or palpitations. - Was discussed for infiltrative cardiomyopathy/amyloid workup as outpatient, although hypertension in this setting is very uncommon. Hypotension is much more predominant (Lancet. 2005;365([id number]):[id number]. PMID [id number]) - At this junction would follow up on above results and not order any additional tests - BP improved with labetelol 200mg x1 dose. Given her HFrEF recommend converting her to from labetelol to carvedilol. Recommend maximizing lisinopril to 40mg daily and starting carvedilol 12.5 BID with dose titration as outpt - Continue amlodipine 10mg daily, lisinopril as above, lasix 40mg daily - Close followup of blood pressure as outpt AoC CHF EF45-50% - No evidence of CAD on most recent cath - ECHO 07/08/18: Severe concentric LVH concerning for infiltrative disease. LVEF 45-50%, no wall motion abnormalities, normal RV size - Lisinopril, BB, lasix as above Afib w/ RVR - BB as above - Continue warfarin goal INR 2.0-3.0 (2) Acute exacerbation of CHF (congestive heart failure): (3) Afib: Subjective Bismark reports she feels normal today. She notes she has been told her blood pressures have been high, but has not had any symptoms during the episodes. Denies headache, weakness, confusion, vision change, diplopia, visual flashers, dizziness, lightheadedness, syncope, presyncope, shortness of breath, difficulty breathing, chest pressure, chest pain, palpitations. Has been up walking, no problems with balance or coordination. No numbness/tingling. Denies increased pain, stress in the last two days. Denies increased anxiety. Eating meals OK, no nausea/vomiting/constipation. One episode of loose stool after a laxative, but otherwise no diarrhea. No BRBPR/melena. Review of Systems See HPI Physical Exam 2 Vital Signs (Past 24 Hours): Last Vital Signs Temp 37.3 C 07/19/18 11:18 Pulse 85 07/19/18 14:08 Resp 22 07/19/18 11:45 BP 112/68 07/19/18 14:08 Pulse Ox 92 07/19/18 11:45 Physical Exam: General: A&Ox3. NAD. Cooperative. Speech with normal volume, prosody. HEENT: Atraumatic, normocephalic. PERLAA. EoM intact without nystagmus. No facial asymmetry. Facial strength and sensation intact in all distributions. Pulm: Diffuse end expiratory wheezes. No rales/crackles appreciated. Symmetrical chest rise. No increase work of breathing. No respiratory distress. Cardiac: irregularly irregular, -mrg. Radial pulses intact and symmetrical. no JVD appreciated. No carotid bruits appreciated. Abdominal: Nontender, nondistended, soft. BS present. Extremity: 5/5 strength to finger flexion/extension, wrist flexion/extension, elbow flexion/extension, shoulder internal rotation/external rotation/forward flexion, ankle plantar/dorsiflexion without pain and without sensory deficit to soft touch. Resident Activity Tracking Resident Involvement: Resident Care Provided Care Provided: [facility] Medicine _ (1) Acute exacerbation of CHF (congestive heart failure) Heart failure type: systolic Qualified Code(s): I50.23 - Acute on chronic systolic (congestive) heart failure
[2018-07-19] MEDS: WARFARIN SOD 2.5 MG TAB PO SCH (17:28)
[2018-07-20] MEDS: ALBUT/IPRATROP 3MG/0.5MG NEB 3 ML VIAL NEB SCH ×4 (07:12→18:51)
[2018-07-20] MEDS: FORMOTEROL 20 MCG/2 ML VIAL NEB SCH ×2 (07:13→18:51)
[2018-07-20 08:04] LABS: INR 3.2 (0.9-1.1); Prothrombin Time 30.7 Seconds (9.0-12.0)
[2018-07-20] MEDS: LABETALOL HCL 200 MG TAB PO SCH ×2 (09:01→15:59)
[2018-07-20] MEDS: predniSONE 10 MG TABLET PO SCH (09:02)
[2018-07-20] MEDS: SERTRALINE HCL 50 MG TABLET PO SCH (09:02)
[2018-07-20] MEDS: FUROSEMIDE 40 MG TAB PO SCH (09:02)
[2018-07-20] MEDS: LISINOPRIL 20 MG TAB PO SCH (09:03)
[2018-07-20 12:41] LABS: BUN Creatinine Ratio 35.2 (10-20); Calcium 7.6 mg/dl (8.5-10.1); Creatinine Clr Calc Pharmacy 27.9 ml/min; Est GFR (African American) 43.2; Est GFR (Non-African American) 37.3; Magnesium 1.9 mg/dl (1.8-2.4); Phosphorus 3.8 mg/dl (2.5-4.9); Potassium 3.3 mmol/L (3.5-5.1)
--- NOTE | 2018-07-20 15:06 | Hospitalist Progress Note ---
Date of Service July 20, 2018 Assessment & Plan (1) Influenza A: (2) Dyspnea: (3) Afib: (4) COPD (chronic obstructive pulmonary disease): (5) Chronic systolic heart failure: (6) Leukocytosis: (7) Hypertension: (8) Anxiety: (9) DVT prophylaxis: 77 yo Old white female admitted on July 09, 2018 because of influenza A and COPD exacerbation, and HAD accelerated hypertension, which is getting better now Accelerated hypertensio systolic more than 200, diastolic more than 120 , 2 days ago Per latest cardiology recommendation, Discontinuation OF Metoprol 100 twice daily, start COREG WILL maximize Lisinopril to 40 mg p.o. daily, has DC'ed amlodipine to 10 mg p.o. daily Has discontinued hydralazine Has checked renal A duplex , no renal artery stenosis For accelerated hypertension I want to rule out secondary hypertension such as Conn syndrome, [place] syndrome, pheochromocytoma, labs ordered, results pending Cardiology input appreciated Influenza A: has completed Oseltamavir dosed x 5 days, patient has no obvious cough, has be off droplet isolation acute on chronic CHF systolic exacerbation , stable improving Nonsustained V. tach, patient is asymptomatic, level of magnesium and phosphatase were checked were unremarkable, continue patient monitor Possible acute on chronic kidney failure, creatinine decreased, change Lasix to 20 mg p.o. daily, New onset afib with RVR, rate controlled, initiated anticoagulation - patient's insurance does not cover DOACs Coumadin 5 mg started 07/11 and trend INRs, will follow INR Possible COPD exacerbation with history of 30+ pack-year of smoking, has completed full course of tapering dose of prednisone O2 as needed Possible acute on chronic systolic heart failure: Worked up initially in 11/2016 with a right and left-heart cath by Dr. Henderson which found no evidence of CAD, but did show elevated right & left-sided cardiac pressures. 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 tach in monitor Denies dizziness palpitation blurred vision or double vision Denies any hx of significant episodes of dizziness palpitation blurred vision or double vision Occasional cough otherwise eating drinking okay Review of Systems Constitutional: Positive e weakness, or fatigue Respiratory: mild cough, no sputum, wheezing, or dyspnea on exertion Cardiac: No chest pain, No orthopnea, No PND, No claudication, No palpitations , Abdomen: No pain, No nausea, No vomiting, No diarrhea, Musculoskeletal: No joint pain, No muscle pain, No swelling, No calf pain, No problem reported : No dysuria, No urinary frequency, No incontinence, No hematuria Neurologic: No paralysis, No weakness, No numbness/tingling, Psychiatric: No depression symptoms, No anhedonism, No anxiety, No insomnia, Heme: No abnormal bleeding/bruising, No clotting problems, Skin: No rash, No itch, No new/changing skin lesions, No color change, No bleeding Cardiovascular: + dyspnea, + dyspnea on exertion and + orthopnea; no chest pain , no palpitations and no syncope Physical Exam 2 Vital Signs (Past 24 Hours): Last Vital Signs Temp 36.5 C 07/20/18 12:08 Pulse 75 07/20/18 12:08 Resp 22 07/20/18 12:08 BP 97/64 L 07/20/18 12:08 Pulse Ox 93 07/20/18 12:08 Physical Exam: General Appearance: Frail, chronically ill looking, on nasal cannula oxygen, occasional wheezing in the conversation, WD/WN, no apparent distress, Eyes: normal inspection, PERRL, EOMI, sclerae normal ENT: normal ENT inspection, hearing grossly normal, pharynx normal Neck: supple, no adenopathy, thyroid normal, no JVD, no carotid bruits, trachea midline Respiratory/Chest: chest non-tender, decreased breath sounds, no respiratory distress, sporadic rales / wheezing Cardiovascular: regular rate, rhythm, no JVD, no murmur Abdomen: normal bowel sounds, non tender, soft, no organomegaly, Extremities: normal range of motion, non-tender, normal inspection, joint has no limited range of motion, capillary refill is normal, no cyanosis clubbing Neurologic/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, no motor/sensory deficits, alert, normal mood/affect, oriented x 3 Skin: normal color, warm/dry, no rash Lymphatic: no adenopathy Results & Data Laboratory Results Laboratory Results - last 24 hr 07/20/18 07/20/18 07/20/18 06:07 07:43 12:11 PT 30.7 H INR 3.2 H Sodium 141 Potassium 3.3 L Chloride 100 Carbon Dioxide 35 H Anion Gap 6.0 BUN 49 H Creatinine 1.38 H D Est Cr Clr Drug Dosing 27.9 Est GFR ( Amer) 43.2 Est GFR (Non-Af Amer) 37.3 BUN/Creatinine Ratio 35.2 H Glucose 241 H Calcium 7.6 L Phosphorus 3.8 Magnesium 1.9 PTH Intact 231.1 H _ (1) Dyspnea Dyspnea type: orthopnea Qualified Code(s): R06.01 - Orthopnea
--- NOTE | 2018-07-20 16:13 | Cardiology Progress Note ---
Date of Service July 20, 2018 Assessment & Plan (1) Acute exacerbation of CHF (congestive heart failure): 2. Severe concentric LVH -? Infiltrative process 3. New onset with atrial fibrillation with RVR 4. Mild mitral stenosis, MR 5. Hypertension 6. Influenza A 7. COPD Earlier in the week patient having issues with labile BPs with occasional values in the 200s. Low suspicion for secondary causes. No clear precipitants but suspect in part related to acute illness, steroids and volume. BP better controlled on increased lisinopril, amlodipine and switch from metoprolol to labetalol. 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 Mininaml congestion on exam today. -- Agree with transition from labetalol to carvedilol 12.5 BID. Can titrate up as necessary. -- Agree with increasing lisinopril to 40mg daily. -- Continue current amlodipine. -- Continue lasix 20mg daily. From a cardiac standpoint OK for discharge when other medical issues resolved. Can follow-up with cardiology in 1-2 weeks. Subjective Patient denies chest pain, or significant shortness of breath today. Reports continued wheezing, non-productive cough. Tele reviewed -- remains in rate controlled AF. Physical Exam 2 Vital Signs (Past 24 Hours): Last Vital Signs Temp 36.4 C L 07/20/18 15:03 Pulse 73 07/20/18 15:12 Resp 18 07/20/18 15:12 BP 111/75 07/20/18 15:03 Pulse Ox 96 07/20/18 15:12 Constitutional: WD/WN, vitals as above Eyes: + anicteric sclerae Respiratory: Auscultation: + rhonchi and + wheezes Cardiovascular: Rate/Rhythm: regular rate; + abnormal rhythm Heart Sounds: + murmur Gastrointestinal (Abdomen): Inspection/Auscultation: normal bowel sounds Skin: no rashes, warm and dry Psychiatric: Orientation: alert _ (1) Acute exacerbation of CHF (congestive heart failure) Heart failure type: systolic Qualified Code(s): I50.23 - Acute on chronic systolic (congestive) heart failure
[2018-07-20] MEDS: WARFARIN SOD 2.5 MG TAB PO SCH (16:37)
[2018-07-20] MEDS: CARVEDILOL 12.5 MG TAB PO SCH (20:29)
[2018-07-21] MEDS: ALBUT/IPRATROP 3MG/0.5MG NEB 3 ML VIAL NEB SCH ×2 (07:04→11:05)
[2018-07-21] MEDS: FORMOTEROL 20 MCG/2 ML VIAL NEB SCH (07:05)
[2018-07-21 07:56] LABS: BUN Creatinine Ratio 34.5 (10-20); Calcium 7.7 mg/dl (8.5-10.1); Creatinine Clr Calc Pharmacy 35.9 ml/min; Est GFR (African American) 58.8; Est GFR (Non-African American) 50.7; Potassium 3.3 mmol/L (3.5-5.1)
[2018-07-21 08:07] LABS: Phosphorus 3.2 mg/dl (2.5-4.9)
[2018-07-21] MEDS: CARVEDILOL 12.5 MG TAB PO SCH (08:16)
[2018-07-21] MEDS: SERTRALINE HCL 50 MG TABLET PO SCH (08:17)
[2018-07-21] MEDS ORDERED: LISINOPRIL 20 MG TAB PO SCH (09:00)
[2018-07-21] MEDS ORDERED: FUROSEMIDE 20 MG TAB PO SCH (09:00)
[2018-07-21 09:08] LABS: Prothrombin Time 35.2 Seconds (9.0-12.0)
[2018-07-21 09:12] LABS: INR 3.8 (0.9-1.1)
[2018-07-21] MEDS ORDERED: POTASSIUM CHLORIDE 10 MEQ TABCR PO ONE (11:30)
[2018-07-21] MEDS ORDERED: CALCIUM 600MG + VIT D 400 IU TAB PO SCH (11:30)
--- NOTE | 2018-07-21 14:25 | Discharge Summary ---
Date of Service July 21, 2018 Admission HPI Per Admitting Provider 77yo F w/ hx of HTN and anxiety who presents for acute-onset shortness of breath that began last night. Patient reports that she was in her normal state of health until yesterday. She has been under a large amount of stress in the last few days due to a in the family. Overnight, she felt shortness of breath which was worse with lying down. The shortness of breath lasted all night. In the ambulance, she required BiPap; however, she is now stable on 2L NC. She had an echo done yesterday which was ordered by her PCP to follow up on prior testing done in 2017. In 2017, she had a left and right heart cath with Dr. Henderson due to episodic shortness of breath (similar to this event). The caths showed no coronary artery disease, but did show elevated right and left- sided cardiac pressures. She reports no major CHF symptoms over the last few weeks, denying any change in exercise tolerance, any change in orthopnea, LE swelling, or other issues. Principal Diagnosis no Discharge Data Allergies Allergy/AdvReac Type Severity Reaction Status Date / Time No Known Allergies Allergy Verified 07/09/18 11:11 Consultations 07/09/18 12:32 ED Decision to Admit Stat 07/09/18 18:03 Consult Cardiology Routine Ordered Studies 07/16/18 14:20 US duplex renal artery Stat Hospital Course (1) Influenza A: (2) Dyspnea: (3) Afib: (4) COPD (chronic obstructive pulmonary disease): (5) Chronic systolic heart failure: (6) Leukocytosis: (7) Hypertension: (8) Anxiety: (9) DVT prophylaxis: 77 yo Old white female admitted on July 09, 2018 because of influenza A and COPD exacerbation, and HAD accelerated hypertension, which is getting better now Accelerated hypertensio systolic more than 200, diastolic more than 120 , 3 days ago Per latest cardiology recommendation, Discontinuation OF Metoprol 100 twice daily, start COREG 12,g mg po bid has maximizde Lisinopril to 40 mg p.o. daily, has DC'ed amlodipine to 10 mg p.o. daily Has discontinued hydralazine Has checked renal A duplex , no renal artery stenosis For accelerated hypertension I would like to rule out secondary hypertension such as Conn syndrome, Kareem syndrome, pheochromocytoma, labs ordered, results pending, PCP please follow-up results Influenza A: has completed Oseltamavir dosed x 5 days, mild cough, has be off droplet isolation acute on chronic CHF systolic exacerbation , stable improving Nonsustained V. 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 daily, New onset afib with RVR, rate controlled, initiated anticoagulation - patient's insurance does not cover DOACs Coumadin 5 mg started 07/11 and trend INRs, will follow INR, INR is 3.8 today compared to 3.25 yesterday, has recommended patient is told to hold tonight's dose, check PT/INR tomorrow morning and then follow-up PCPs instruction on how to adjust the dose Possible COPD exacerbation with history of 30+ pack-year of smoking, has completed full course of tapering dose of prednisone O2 as needed Possible acute on chronic systolic heart failure: Worked up initially in 11/2016 with a right and left-heart cath by Dr. Henderson which found no evidence of CAD, but did show elevated right & left-sided cardiac pressures. 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 tach in monitor, no more episodes, Denies dizziness palpitation blurred vision or double vision Denies any hx of significant episodes of dizziness palpitation blurred vision or double vision Occasional cough otherwise eating drinking okay Review of Systems upon discharge Constitutional: Positive e weakness, or fatigue Respiratory: mild cough, no sputum, wheezing, or dyspnea on exertion Cardiac: No chest pain, No orthopnea, No PND, No claudication, No palpitations , Abdomen: No pain, No nausea, No vomiting, No diarrhea, Musculoskeletal: No joint pain, No muscle pain, No swelling, No calf pain, No problem reported : No dysuria, No urinary frequency, No incontinence, No hematuria Neurologic: No paralysis, No weakness, No numbness/tingling, Psychiatric: No depression symptoms, No anhedonism, No anxiety, No insomnia, Heme: No abnormal bleeding/bruising, No clotting problems, Skin: No rash, No itch, No new/changing skin lesions, No color change, No bleeding Physical Exam upon discharge: General Appearance: Frail, chronically ill looking, on nasal cannula oxygen, occasional wheezing in the conversation, WD/WN, no apparent distress, Eyes: normal inspection, PERRL, EOMI, sclerae normal ENT: normal ENT inspection, hearing grossly normal, pharynx normal Neck: supple, no adenopathy, thyroid normal, no JVD, no carotid bruits, trachea midline Respiratory/Chest: chest non-tender, decreased breath sounds, no respiratory distress, sporadic rales / wheezing Cardiovascular: regular rate, rhythm, no JVD, no murmur Abdomen: normal bowel sounds, non tender, soft, no organomegaly, Extremities: normal range of motion, non-tender, normal inspection, joint has no limited range of motion, capillary refill is normal, no cyanosis clubbing 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, no motor/sensory deficits, alert, normal mood/affect, oriented x 3 Skin: normal color, warm/dry, no rash Lymphatic: no adenopathy Lab data upon discharge: Laboratory Results - last 24 hr 07/21/18 07/21/18 07/21/18 06:54 06:54 08:00 PT 35.2 H INR 3.8 H Sodium 144 Potassium 3.3 L Chloride 104 Carbon Dioxide 35 H Anion Gap 5.0 BUN 37 H Creatinine 1.07 Est Cr Clr Drug Dosing 35.9 Est GFR ( Amer) 58.8 Est GFR (Non-Af Amer) 50.7 BUN/Creatinine Ratio 34.5 H Glucose 85 Calcium 7.7 L Ionized Calcium Phosphorus 3.2 Magnesium 2.0 25-OH Vitamin D Total 22.1 L 07/21/18 08:03 PT INR Sodium Potassium Chloride Carbon Dioxide Anion Gap BUN Creatinine Est Cr Clr Drug Dosing Est GFR ( Amer) Est GFR (Non-Af Amer) BUN/Creatinine Ratio Glucose Calcium Ionized Calcium 1.07 L Phosphorus Magnesium 25-OH Vitamin D Total Total Time Total Time Spent Total Time Spent (In Minutes): 35 Total Time Includes: Examination of the Patient, Discharge Planning, Medication Reconciliation and Communication With Other Providers Discharge Plan Discharge Items Patient Disposition: Home - Home Health Services Reason For Visit: SHORTNESS OF BREATH Discharge Diagnosis: Accelerated hypertension accelerated hypertension Vit D Def Discharge Goals: Decrease discomfort, Diagnostic testing, Improve disease control, Improve function, Increase independence and Improve nutritional status Activity: Resume your previous activity Non-emergency contact: 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 daily, For accelerated hypertension I want to rule out secondary hypertension such as Conn syndrome, Kareem syndrome, pheochromocytoma, labs ordered, results pending , need to follow-up results with PCP you have acute on chronic CHF systolic exacerbation , stable improving, continue Lasix to 20 mg p.o. daily, you have New onset afib with RVR, rate controlled, Your current Coumadin dose is 2 mg p.o. daily, because your today's INR is 3.8, will need to hold Coumadin the day and check INR tomorrow with PCP, your PCP will decide to restart Coumadin or not you need to follow up with your primary care physician in 1 week, lab need to be done tomorrow for INR , need to target INR in 2-3 , BMP - take medication as instructed, never overdose or any misuse, or take with alcohol, because misuse of medicine may cause organ damage or , call me , or your primary care physician if have questions of discharge medicaitons. - call your primary care physician, or go to local emergency room if has any fever/chill, chest pain, shortness of breathing, nausea/vomiting/abdominal pain , facial droop/slurry speech/local weakness, or if has any questions. - fall precaution - diet as instructed - you need to follow up with your subspecialist, such as Dr. Henderson Prescriptions: New carvedilol 12.5 mg Tablet 12.5 mg PO BID 30 Days Qty: 60 RF: 0 lisinopril 20 mg Tablet 40 mg PO QAM 30 Days Qty: 60 RF: 0 warfarin [Coumadin] 2.5 mg Tablet 2 mg PO DAILY@1600 30 Days Qty: 30 RF: 0 furosemide 20 mg Tablet 20 mg PO DAILY 30 Days Qty: 30 RF: 0 [id number] [Caltrate 600-D Plus Minerals] 600 mg calcium- 800 unit-50 mg Tablet 1 tab PO BID 30 Days Qty: 60 RF: 0 ipratropium-albuterol [Combivent Respimat] 20-100 mcg/actuation mist 1 puffs INH Q6H Qty: 4 RF: 0 Continue sertraline 50 mg Tablet 50 mg PO DAILY RF: 0 Discontinued metoprolol tartrate 50 mg Tablet 50 mg PO BID RF: 0 Stand-Alone Forms: [facility] Discharge Orders: Discharge Order (Routine); Ordered 07/21/18 Ordered By: Orville Price Admission Data Admit Date/Time: 07/09/18 13:44 Attending Provider: Orville Price Admit Provider: Mundo Villavicencio Primary Care Provider: Alonso Holman Other Providers: Mundo Villavicencio ; Bertin Dumont ; Ren Sanchez Service: Telemetry Other Interventions: Discharge Summary Assessment (RN) Last Done: 07/21/18 12:06 DC Date/Time DO NOT enter until pt leaves facility: 07/21/18 14:12
[2018-07-22 15:55] LABS: Metanephrine, Plasma <25 pg/mL (<=57); Normetanephrine Plasma 64 pg/mL (<=148); Total Metanephrine Plasma 64 pg/mL (<=205)
[2018-07-22] MEDS ORDERED: WARFARIN SOD 2 MG TAB PO SCH (16:00)
--- NOTE | 2018-08-05 14:54 | Hospitalist Progress Note ---
Date of Service Jul 18, 2018 August 05, 2018 Assessment & Plan (1) Hypertension: 77 yo Old white female admitted on July 09, 2018 because of influenza A and COPD exacerbation, and recent 3 days has accelerated hypertension and blood pressure even getting higher today Accelerated hypertensio cont Metoprol 100 twice daily, lisinopril 20 mg p.o. daily, increased amlodipine to 10 mg p.o. daily has checked renal A duplex , no renal artery stenosis For accelerated hypertension would like to rule out secondary hypertension such as Conn syndrome, Kareem syndrome, pheochromocytoma, labs ordered Influenza A: Stable improving, has completed Oseltamavir dosed x 5 days, patient has no obvious cough, has be off droplet isolation COPD exacerbation, and acute on chronic CHF systolic exacerbation Dyspnea: Secondary to influenza, COPD exacerbation and acute on chronic systolic heart failure, has been stable, on Lasix and beta-bria and KEYANNA inhibitor - Troponins peaked at 0.05 - EKG on admission showed biphasic T-waves in V3-V4 and TWI in V5-V6; however, stable to priors -has taper off nasal cannula oxygen New onset afib with RVR, rate controlled, Continue metoprolol initiated anticoagulation - patient's insurance does not cover DOACs Coumadin 5 mg started 07/11 and trend INRs, f/u INR Possible COPD exacerbation with history of 30+ pack-year of smoking Continue prednisone 30 mg p.o. twice daily and will have slowly tapering b/c continues to have wheezing, coarse lungs - continue duonebs , formoterol and chest PT O2 as needed Chronic systolic heart failure: Worked up initially in 11/2016 with a right and left-heart cath by Dr. Henderson which found no evidence of CAD, but did show elevated right & left-sided cardiac pressures. Concern for an infiltrative process such as amyloidosis; Echo on 07/08/2018 showed EF 45-50% with severe LVH, stable from prior. 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, stable continue current medication, plan prophylaxis which is on Coumadin, Pending rehab after blood pressure better control Subjective elevated blood pressure systolic Otherwise doing okay denies dizziness palpitation blurred vision or double vision some cough otherwise eating drinking okay Review of Systems Constitutional: Positive e weakness, or fatigue Respiratory: mild cough, no sputum, wheezing, or dyspnea on exertion Cardiac: No chest pain, No orthopnea, No PND, No claudication, No palpitations, Abdomen: No pain, No nausea, No vomiting, No diarrhea, Musculoskeletal: No joint pain, No muscle pain, No swelling, No calf pain, No problem reported : No dysuria, No urinary frequency, No incontinence, No hematuria Neurologic: No paralysis, No weakness, No numbness/tingling, Psychiatric: No depression symptoms, No anhedonism, No anxiety, No insomnia, Heme: No abnormal bleeding/bruising, No clotting problems, Skin: No rash, No itch, No new/changing skin lesions, No color change, No bleeding Physical Exam Vital Signs (Past 24 Hours): Last Vital Signs Temp 36.8 C 07/21/18 12:06 Pulse 121 H 07/21/18 12:06 Resp 16 07/21/18 12:06 BP 117/75 07/21/18 12:06 Pulse Ox 92 07/21/18 12:06 Physical Exam: General Appearance: Frail,, chronically ill looking, on nasal cannula oxygen, occasional wheezing in the conversation, WD/WN, no apparent distress, Eyes: normal inspection, PERRL, EOMI, sclerae normal ENT: normal ENT inspection, hearing grossly normal, pharynx normal Neck: supple, no adenopathy, thyroid normal, no JVD, no carotid bruits, trachea midline Respiratory/Chest: chest non-tender, decreased breath sounds, no respiratory distress, sporadic rales / wheezing Cardiovascular: regular rate, rhythm, no JVD, no murmur Abdomen: normal bowel sounds, non tender, soft, no organomegaly, Extremities: normal range of motion, non-tender, normal inspection, no pedal edema, no calf tenderness, normal capillary refill, pelvis stable, joint has no limited range of motion, capillary refill is normal, no cyanosis clubbing 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
== END 2018-07-21 14:12 | disposition home health service (06) | DRG 193 ==
LOC: ED 10:51 → SUATTDRO 13:44 → 2W 13:44

== ENCOUNTER 2019-07-07 12:12 | Inpatient (IN) ==
[2019-07-07 12:59] LABS: Basophils # (auto) 0.01 K/uL (0-0.2); Basophils % (auto) 0.1 %; Eosinophils # (auto) 0.04 K/uL (0-0.5); Eosinophils % (auto) 0.4 %; Hematocrit (blood only) 40.3 % (37-47); Hemoglobin 12.7 g/dL (12.0-16.0); Immature Granulocytes # (auto) 0.04 K/uL (0.00-0.02); Immature Granulocytes % (auto) 0.4 %; Lymphocytes # (auto) 1.58 K/uL (1.2-3.4); Lymphocytes % (auto) 16.1 %; Mean Corpuscular Hemoglobin 30.6 pg (25-34); Mean Corpuscular Hgb Conc 31.5 g/dL (32-36); Mean Corpuscular Volume 97.1 fL (80-100); Mean Platelet Volume 11.6 fL (7.4-10.4); Monocytes % (auto) 10.2 %; Neutrophils # (auto) 7.14 K/uL (1.4-6.5); Neutrophils % (auto) 72.8 %; Platelet Count 212 K/uL (130-400); RDW Coefficient of Variation 13.6 % (11.5-14.5); Red Blood Count 4.15 M/uL (4.2-5.4); White Blood Count 9.81 K/uL (4.8-10.8)
[2019-07-07 13:09] LABS: INR 1.1 (0.9-1.1); Prothrombin Time 10.9 Seconds (9.0-12.0)
--- NOTE | 2019-07-07 13:15 | XRay Report ---
SINGLE VIEW CHEST CLINICAL HISTORY: Generalized weakness. FINDINGS: 2 AP, portable, upright chest radiographs are compared to study dated 06/23/2019. The examin ation is degraded by portable technique and patient rotation. The heart is enlarged noting atheroscle rotic calcification of the thoracic aorta. The pulmonary vasculature is noncongested. The mitral bernadette lilian is densely calcified. Atelectasis at the left lung base is similar to previous. No airspace conso lidation or large pleural effusion is identified. No pneumothorax is seen. The skeletal structures ar e osteopenic. The bony thorax is grossly intact. Degenerative change and scoliosis are noted in the t horacic spine. IMPRESSION: Cardiomegaly with no acute cardiopulmonary abnormality. ACT 112: Negative or not required by law. Electronically signed by: Gavin Crisostomo M.D. 07/07/2019 1:14 PM
[2019-07-07 13:20] LABS: Alanine Aminotransferase 25 U/L (12-78); Albumin Level 3.3 gm/dl (3.4-5.0); Aspartate Aminotransferase 17 U/L (15-37); BUN Creatinine Ratio 28.7 (10-20); Blood Urea Nitrogen 28 mg/dl (7-18); Calcium 9.1 mg/dl (8.5-10.1); Carbon Dioxide 38 mmol/L (21-32); Chloride 99 mmol/L (98-107); Est GFR (African American) 64.2; Est GFR (Non-African American) 55.4; Glucose 186 mg/dl (70-99); Magnesium 2.2 mg/dl (1.8-2.4); Potassium 3.4 mmol/L (3.5-5.1); Sodium 143 mmol/L (136-145)
[2019-07-07 13:23] LABS: Base Excess VBG 15.2 mEq/L; pH VBG 7.45 (7.36-7.41)
[2019-07-07 13:28] LABS: Albumin Globulin Ratio 1.1 (0.9-2); Alkaline Phosphatase 70 U/L (45-117); Bilirubin,Total 0.4 mg/dl (0.2-1); Globulin 3.1 gm/dl (2.5-4.0); Total Protein 6.4 gm/dl (6.4-8.2); Troponin I 0.097 ng/ml (0-0.045)
--- NOTE | 2019-07-07 13:53 | CT Scan Report ---
CT head/brain wo con CLINICAL HISTORY: 78 years-old Female presenting with prior ICH, now tired/fatigued. TECHNIQUE: Multidetector CT imaging of the head was performed without the use of intravenous contrast . IV contrast: None. One or more dose lowering techniques were used consistent with the principles of ALARA (as low as reasonably achievable), including automatic exposure control, mA or kV adjustment t o individual patient size, and/or use of iterative reconstruction. COMPARISON: 06/23/2019. CT DOSE (mGy.cm): The estimated cumulative dose is 537.48 mGy.cm. FINDINGS: Disk Grinder topogram: Unremarkable. Ventricles and sulci normal in size. Interval evolution of the prior left cerebellar hemispheric infa rct with surrounding hypoattenuation likely vasogenic edema. Regional mass effect has overall decreas ed from prior slightly. Redemonstration of the chronic. Median right occipital lobe infarct and old l acunar infarcts in the right basal ganglia and left thalamus. Periventricular white matter hypoattenu ation likely chronic small vessel ischemic change. No acute territorial infarct. No midline shift. No extra-axial fluid collection. Paranasal sinuses and mastoid air cells clear. Calvarium intact. IMPRESSION: 1. Interval evolution of the left cerebellar hemispheric infarct with slightly decreased mass effect . No new hemorrhage. 2. Chronic small vessel ischemic change, chronic right occipital lobe infarct, and old lacunar infar cts as on prior exam. ACT 112: Negative or not required by law. Electronically signed by: Lennox Collins M.D. 07/07/2019 1:52 PM
[2019-07-07 14:34] LABS: Appearance Urine Clear (Clear); Bacteria Urine Automated Negative (Negative); Bilirubin Urine Negative (Negative); Blood Urine Negative (Negative); Color Urine Yellow; Glucose Urine UA Negative (Negative); Ketones Urine Negative (Negative); Leukocyte Esterase Urine Negative (Negative); Nitrite Urine Negative (Negative); Protein Urine Trace (Negative); RBC Urine Automated 0-4 /hpf (0-4); Specific Gravity Urine 1.014 (1.000-1.030); Urobilinogen Urine Negative (Negative)
--- NOTE | 2019-07-07 14:44 | Electrocardiogram Report ---
Test Reason : Blood Pressure : / mmHG Vent. Rate : 046 BPM Atrial Rate : 340 BPM P-R Int : 000 ms QRS Dur : 092 ms QT Int : 478 ms P-R-T Axes : 000 -01 194 degrees QTc Int : 418 ms Atrial fibrillation with slow ventricular response with premature ventricular or aberrantly conducted complexes Abnormal ECG When compared with ECG of 23-JUN-2019 03:08, Significant changes have occurred Confirmed by Bertin Dumont ([id number]) on 07/07/2019 2:43:57 PM Referred By: REFERRED SELF Confirmed By:Bertin Dumont
--- NOTE | 2019-07-07 16:18 | History & Physical Report ---
Date of Service July 07, 2019 Assessment & Plan (1) Fatigue: Suspect decreased appetite and generalized fatigue related to her recent left cerebellar bleed although digoxin toxicity and sinus bradycardia remain alternative possible diagnoses. TSH/ammonia WNL. WBC WNL and urine/CXR not suggestive of infective etiology. Hypercapnia noted but not significantly changed from prior and pH only 7.45 unlikely contributory. (2) Pre-syncope: Pre-syncope unlike generalized fatigue and appetite loss however more likely related to bradycardia more easily treated with holding digoxin and reducing carvedilol dose. Murmur on exam - repeat echo (previously abnormal echocardiogram - trace pericardial effusion and concern for infiltrative process with severe concentric LVH). (3) Symptomatic bradycardia: as above (4) Digoxin toxicity: Concern for this given mildly elevated level however, concerning sudden increase from levels 1 month prior in addition to EKG changes (see below). Given unclear diagnosis, no hyperkalemia, minimal elevation in levels and no acute change in mental state since cerebellar stroke will not treat with DARCI fragments at present. Serial EKGs. Aim K > 4.0. Mg > 2.0. (5) Demand ischemia of myocardium: Suspect cause of elevated troponin. No chest pain or shortness of breath to suggest ACS. Angiographically normal coronary arteries on cardiac cath in April 2019. Will trend overnight. (6) Abnormal EKG: Lateral wall ischemic changes and bradycardia. ER physician discussed with her supervisor print line and recommended trending troponin but no urgent intervention required. TTE ordered to assess for non CAD related pathology causing this. (7) History of cerebellar hemorrhage: Holding anticoagulation until 07/24/2019. Unclear Neurosurgery follow up at [facility]. Suspect this is most likely cause of her generalized weakness, fatigue and reduced appetite. Repeat CT just shows normal evolution. (8) History of CVA (cerebrovascular accident): Suspect infarcts secondary to a. fib however currently off anticoagulation due to recent cerebellar hemorrhage. No acute CVA suspected based on history and exam. (9) Afib: Reduce carvedilol from 12.5mg BID to 3.125mg BID and monitor on telemetry for RVR. Hold digoxin for now but can likely resume at lower dose depending on HR overnight. No anticoagulation at present due to recent cerebellar hemorrhage on 06/23/2019. (10) Restrictive lung disease: Secondary to kyphoscoliosis. No acute lung pathology suspected, CXR clear. Aim O2 > 90%. 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 Previously being worked up at [facility] but unclear outcome of this after her required cardiac and pulmonology workup. (12) Elevated glucose: No known diabetes. BSG ACHS. HbA1C with AM labs. No need for insulin sliding scale at present but will start if > 200. (13) DVT prophylaxis: Chemical prophylaxis contraindicated given recent cerebellar hemorrhage - recommended restarting on anticoagulation on 07/24/2019 mentioned on [facility] notes as advised by [facility]. SCDs (14) Discharge planning issues: PT/OT. Likely discharge back to [facility] once medically stable. History of Present Illness Chief Complaint: Fatigue, presyncope, decreased appetite Primary Care Provider: Alonso Holman MD Bismark King is a 78 year old female who presented to the ER from [facility] long-term due to generalized fatigue, weakness and reduced appetite. She was recently admitted to [facility] due to left cerebellar hemorrhage after a fall on warfarin and supratherapeutic INR of 5.1. Unable to get much of a history from the patient herself as she does not have much recollection since her fall and admission at [facility] therefore history obtained from her daughters over the phone and at bedside and [facility] notes. [facility] discharge summary has been requested via [facility]. She was hospitalized from June 23 to 2019 due to left cerebellar hemorrhage after a fall backwards from standing up from a chair. As per ER notes from that time she was dizzy and vomiting blood after this. Apparently with no LOC from the fall itself. No surgical intervention was performed. Therefore was some talk of a feeding tube at [facility] if her appetite didn't improve but I am unclear how far these conversations went. However it is clear she was fatigued and had a poor appetite at [facility] prior to her discharge to [facility] for rehabilitation. However at [facility] she appeared to deteriorate further and has been sleeping most of the day with a generalized weakness. This appears to be a slow progression rather than sudden change in her condition. She is unable to answer any questions regarding dysphagia or odynophagia. Allergies Allergy/AdvReac Type Severity Reaction Status Date / Time No Known Drug Allergies Allergy Unknown Verified 07/07/19 14:09 Home Medications Home Medications Medication Instructions Recorded Confirmed Type digoxin 125 mcg PO DAILY 10/10/18 07/07/19 History furosemide [Lasix] 20 mg PO DAILY #3 tab 10/10/18 07/07/19 Rx spironolactone 12.5 mg PO DAILY 10/10/18 07/07/19 History carvedilol 12.5 mg tablet 12.5 mg PO BID 03/26/19 07/07/19 History sertraline 50 mg tablet 50 mg PO DAILY 03/26/19 07/07/19 History warfarin 0 mg PO UD 06/23/19 07/07/19 History amlodipine 10 mg PO DAILY 07/07/19 07/07/19 History docusate sodium 100 mg PO BID 07/07/19 07/07/19 History famotidine 20 mg PO DAILY 07/07/19 07/07/19 History lisinopril 10 mg PO BID 07/07/19 07/07/19 History Past Med/Surg History Medical History (Updated 07/07/19 @ 22:14 by Reji Craig MD) Anxiety Atrial fibrillation with RVR (Inactive) Cervicalgia (Chronic) Chronic systolic heart failure Hypertension (Chronic) Thoracoabdominal aneurysm Surgical History H/O: hysterectomy Family History Mother Hypertension Social History Preferred Language: [place] Communication Ability: Impaired Communication Ability Comment: Falls asleep while conversing 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: No Beliefs That Will Affect Care: None marital status: Current Living Situation: [facility] Current Living Situation Comment: currently resident of [facility] for rehab Other Information That Helps Us Care for You: No Feels Safe at Home: Yes Safety Concerns: Feels Safe At This Time Smoking Status: Former smoker Tobacco Type: cigarettes ; Smoking End Date: February 2019 ; Second Hand Exposure: No ; Hx Alcohol Use: No Hx Substance Use: No Review of Systems Review of Systems: All systems reviewed & are unremarkable except as noted in HPI & below Constitutional: + fatigue, + malaise, + weakness, + weight loss and + daytime sleepiness; no fever and no chills Eyes: + diplopia (patient notes vertical diplopia not ellicited on finger exam) Respiratory: no cough and no dyspnea Cardiovascular: no chest pain Physical Exam Constitutional: + thin and + frail appearing; + not well nourished and no acute distress Eyes: PERRL, conjunctivae normal, anicteric sclerae normal visual giraldo by confrontation and EOM intact bilaterally (possible vertical diplopia); no nystagmus ENMT: external ear and nose normal, oropharynx normal Neck: trachea midline, no thyromegaly Respiratory: normal respiratory effort, lungs clear to auscultation Cardiovascular: Rate/Rhythm: + bradycardic and + irregularly irregular Heart Sounds: + murmur (4/6 RUSB systolic) Vessels: no JVD Extremities: normal capillary refill; no calf tenderness and no pedal edema Gastrointestinal (Abdomen): normal bowel sounds, soft, nontender, no hepatosplenomegaly Musculoskeletal: no cyanosis or clubbing, extremities motor strength 5/5 Skin: no rashes, warm and dry Neurologic: moves all extremities (generalized weakness in all 4 extremities) and awake Speech / Cognition: normal speech Motor/Sensory: + pronator drift (bilateral L > R); no tremor and no sensory deficit Cranial Nerves: PERRL, normal accommodation, EOM intact bilaterally (possible veritcal diplopia), normal facial strength, tongue midline, able to rotate head bilaterally, able to elevate shoulders bilaterally and no nystagmus Coordination: + abnormal ohysmo-ry-baep test (slow b/l L > R) Psychiatric: A+Ox3, euthymic affect Lymphatic: no cervical or axillary lymphadenopathy Results & Data Vital Signs (Past 12 Hours) Vital Signs Temp Pulse Resp BP Pulse Ox 07/07/19 16:00 42 L 16 158/71 H 99 07/07/19 15:31 52 L 16 100 07/07/19 15:30 50 L 15 144/66 H 100 07/07/19 15:02 48 L 15 98 07/07/19 15:01 50 L 15 141/65 H 98 07/07/19 15:00 50 L 18 97 07/07/19 14:31 52 L 15 07/07/19 14:30 53 L 14 159/80 H 07/07/19 14:02 46 L 16 97 07/07/19 14:01 44 L 15 168/75 H 97 07/07/19 14:00 40 L 17 07/07/19 13:31 38 L 16 100 07/07/19 13:30 39 L 15 141/72 H 98 07/07/19 13:01 50 L 16 99 07/07/19 13:00 44 L 15 138/84 99 07/07/19 12:33 36.4 C L 43 L 15 158/87 H 88 L 07/07/19 12:32 42 L 16 100 07/07/19 12:16 45 L 16 158/87 H 100 Laboratory Results K 3.4, PvCO2 elevated 62, Bicarb 38, Glucose 186, Troponin 0.097. Otherwise unre markable CBC, CMP, PTINR, TSH. Diagnostic Findings CT head/brain wo con IMPRESSION: 1. Interval evolution of the left cerebellar hemispheric infarct with slightly decreased mass effect. No new hemorrhage. 2. Chronic small vessel ischemic change, chronic right occipital lobe infarct, and old lacunar infarcts as on prior exam. SINGLE VIEW CHEST IMPRESSION: Cardiomegaly with no acute cardiopulmonary abnormality. Medications Administered None given in ER. ECG Indication: bradycardia Rate (beats per minute): 46 Rhythm: atrial fibrillation Findings: + ST depression (lateral) and + T-wave inversion (lateral) Comparison ECG Date: from (06/23/2019) Change: the following changes noted (Lateral ST depression and TWI, bradycardia) Code Status & VTE Plan Code Status Full - as discussed with patient and daughters at bedside although really unable to come to a decision currently, although DNR noted on paperwork from [facility]. Advised this should be re-addressed with her son and who are aware she is for full resuscitation overnight. VTE Prophylaxis Plan VTE Prophylaxis will be ordered: Yes Reason for no VTE drug order: Contraindicated PG Care Time/CCT Total # of Minutes Spent Total Time Spent with Patient: Total time spent is greater than 50% in coordination of care (as documented) at patient's floor/unit and/or counseling patient: Coding Level of Care Code 29240 Initial Inpt Care Lvl 3 Diagnoses Fatigue R53.83 Fatigue type: unspecified Pre-syncope R55 Symptomatic bradycardia R00.1 Digoxin toxicity T46.0X1A Encounter type: initial encounter Injury intent: accidental or unintentional Demand ischemia of myocardium I24.8 Abnormal EKG R94.31 History of cerebellar hemorrhage Z86.79 History of CVA (cerebrovascular accident) Z86.73 Afib I48.11 Atrial fibrillation type: longstanding persistent Restrictive lung disease J98.4 Thoracoabdominal aneurysm I71.6 Presence of rupture: without rupture Elevated glucose R73.09 DVT prophylaxis Z29.9 Discharge planning issues Z02.9 (1) Afib Atrial fibrillation type: longstanding persistent Qualified Code(s): I48.11 - Longstanding persistent atrial fibrillation (2) Thoracoabdominal aneurysm Presence of rupture: without rupture Qualified Code(s): I71.6 - Thoracoabdominal aortic aneurysm, without rupture (3) Digoxin toxicity Encounter type: initial encounter Injury intent: accidental or unintentional Qualified Code(s): T46.0X1A - Poisoning by cardiac-stimulant glycosides and drugs of similar action, accidental (unintentional), initial encounter (4) Fatigue Fatigue type: unspecified Qualified Code(s): R53.83 - Other fatigue
--- NOTE | 2019-07-07 16:32 | Emergency Department Note ---
Entered by Doris Louie acting as a scribe for Elton Ge M.D. History of Present Illness General Chief complaint: Lethargic Stated complaint: LETHARGIC Time Seen by Provider: 07/07/19 12:42 Source: patient and family History of Present Illness Provider complaint: weakness Onset (ago): week(s) 1 Location: head Pain Consistency: + other (worsening) Relieved By: + none Associated symptoms: + other (+fatigue, -urinary symptoms); no shortness of breath The patient is a 78 year old female who presents to the Emergency Room with complaints of worsening weakness for the past weak. The patient reports that she was in [place] for a week last week for a brain bleed after the fall. She notes that she has been increasingly fatigued and weak since she has been home. The patient denies any pain or shortness of breath. She reports that she is not eating a lot lately. She denies any urinary symptoms. Home Medications Home Medications Medication Instructions Recorded Confirmed Type digoxin 125 mcg PO DAILY 10/10/18 07/07/19 History furosemide [Lasix] 20 mg PO DAILY #3 tab 10/10/18 07/07/19 Rx spironolactone 12.5 mg PO DAILY 10/10/18 07/07/19 History carvedilol 12.5 mg tablet 12.5 mg PO BID 03/26/19 07/07/19 History sertraline 50 mg tablet 50 mg PO DAILY 03/26/19 07/07/19 History warfarin 0 mg PO UD 06/23/19 07/07/19 History amlodipine 10 mg PO DAILY 07/07/19 07/07/19 History docusate sodium 100 mg PO BID 07/07/19 07/07/19 History famotidine 20 mg PO DAILY 07/07/19 07/07/19 History lisinopril 10 mg PO BID 07/07/19 07/07/19 History Allergies Allergy/AdvReac Type Severity Reaction Status Date / Time No Known Drug Allergies Allergy Unknown Verified 07/07/19 14:09 Past Med/Surg History Medical History Anxiety Cervicalgia (Chronic) Chronic systolic heart failure Hypertension (Chronic) Surgical History H/O: hysterectomy Family History Mother Hypertension Social History Preferred Language: Nepali Communication Ability: Effective 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 and A total of 10 systems reviewed and were otherwise negative Physical Exam Vital Signs Vital Signs - 24 hr 07/07/19 12:16 07/07/19 12:32 07/07/19 12:33 Temperature 36.4 C L Temperature Source Oral Pulse Rate 45 L 42 L 43 L Pulse Rate from SpO2 Sensor 44 L 42 L Respiratory Rate 16 16 15 Respiratory Effort / Characteristics Non-Labored Spontaneous Respiratory Depth Normal Respiratory Pattern Regular Blood Pressure 158/87 H 158/87 H Blood Pressure Mean 100 110 Blood Pressure Position Lying Pulse Oximetry 100 100 88 L Oxygen Delivery Method Room Air Nasal Cannula Oxygen Flow Rate 0 Sepsis Recent Fever Within 48 Hours No Sepsis New/Unexplained Change in Mental Status No Sepsis Action Taken by Nursing No Action Required Oxygen Flow Rate - Titration 2 Pulse Oximetry Post Tiitration 100 07/07/19 13:00 07/07/19 13:01 07/07/19 13:30 Temperature Temperature Source Pulse Rate 44 L 50 L 39 L Pulse Rate from SpO2 Sensor 46 L 49 L 42 L Respiratory Rate 15 16 15 Respiratory Effort / Characteristics Respiratory Depth Respiratory Pattern Blood Pressure 138/84 141/72 H Blood Pressure Mean 95 97 Blood Pressure Position Pulse Oximetry 99 99 98 Oxygen Delivery Method Nasal Cannula Nasal Cannula Nasal Cannula Oxygen Flow Rate 2 2 2 Sepsis Recent Fever Within 48 Hours Sepsis New/Unexplained Change in Mental Status Sepsis Action Taken by Nursing Oxygen Flow Rate - Titration Pulse Oximetry Post Tiitration 07/07/19 13:31 07/07/19 14:00 07/07/19 14:01 Temperature Temperature Source Pulse Rate 38 L 40 L 44 L Pulse Rate from SpO2 Sensor 38 L 40 L 46 L Respiratory Rate 16 17 15 Respiratory Effort / Characteristics Respiratory Depth Respiratory Pattern Blood Pressure 168/75 H Blood Pressure Mean 101 Blood Pressure Position Pulse Oximetry 100 97 Oxygen Delivery Method Nasal Cannula Oxygen Flow Rate 2 Sepsis Recent Fever Within 48 Hours Sepsis New/Unexplained Change in Mental Status Sepsis Action Taken by Nursing Oxygen Flow Rate - Titration Pulse Oximetry Post Tiitration 07/07/19 14:02 07/07/19 14:30 07/07/19 14:31 Temperature Temperature Source Pulse Rate 46 L 53 L 52 L Pulse Rate from SpO2 Sensor 44 L 49 L 54 L Respiratory Rate 16 14 15 Respiratory Effort / Characteristics Respiratory Depth Respiratory Pattern Blood Pressure 159/80 H Blood Pressure Mean 104 Blood Pressure Position Pulse Oximetry 97 Oxygen Delivery Method Nasal Cannula Nasal Cannula Oxygen Flow Rate 2 2 2 Sepsis Recent Fever Within 48 Hours Sepsis New/Unexplained Change in Mental Status Sepsis Action Taken by Nursing Oxygen Flow Rate - Titration Pulse Oximetry Post Tiitration 07/07/19 15:00 07/07/19 15:01 07/07/19 15:02 Temperature Temperature Source Pulse Rate 50 L 50 L 48 L Pulse Rate from SpO2 Sensor 49 L 48 L 45 L Respiratory Rate 18 15 15 Respiratory Effort / Characteristics Respiratory Depth Respiratory Pattern Blood Pressure 141/65 H Blood Pressure Mean 85 Blood Pressure Position Pulse Oximetry 97 98 98 Oxygen Delivery Method Nasal Cannula Nasal Cannula Nasal Cannula Oxygen Flow Rate 2 2 2 Sepsis Recent Fever Within 48 Hours Sepsis New/Unexplained Change in Mental Status Sepsis Action Taken by Nursing Oxygen Flow Rate - Titration Pulse Oximetry Post Tiitration 07/07/19 15:30 07/07/19 15:31 07/07/19 16:00 Temperature Temperature Source Pulse Rate 50 L 52 L 42 L Pulse Rate from SpO2 Sensor 51 L 51 L 54 L Respiratory Rate 15 16 16 Respiratory Effort / Characteristics Respiratory Depth Respiratory Pattern Blood Pressure 144/66 H 158/71 H Blood Pressure Mean 101 84 Blood Pressure Position Pulse Oximetry 100 100 99 Oxygen Delivery Method Nasal Cannula Nasal Cannula Nasal Cannula Oxygen Flow Rate 2 2 2 Sepsis Recent Fever Within 48 Hours Sepsis New/Unexplained Change in Mental Status Sepsis Action Taken by Nursing Oxygen Flow Rate - Titration Pulse Oximetry Post Tiitration GENERAL: Awake, alert, fatigued appearing, falls asleep during interview HENT: Normocephalic, atraumatic. EYES: Normal conjunctiva. Sclera non-icteric. PERRL. NECK: Supple. No nuchal rigidity. RESPIRATORY: Clear to auscultation. No wheezes. Normal respiratory effort. CARDIAC: Bradycardic rate. Irregular rhythm. Extremities warm and well perfused. GI: Soft, non-distended. No tenderness to palpation. No rebound or guarding. MUSCULOSKELETAL: Atraumatic. Chest examination reveals no tenderness. LOWER EXTREMITIES: Calves are equal size bilaterally and non-tender. NEURO: No slurred speech, drowsy appearing. Moving all extremities. SKIN: Warm and dry. No jaundice noted. Course Course 1244: The patient was evaluated in room C5, and a complete history and physical examination were performed. 1410: I discussed the patient's case with Dr. Henderson- Cardiology, he recommends trending the troponin and that this is not urgent. 1445: I reviewed the patient's case with Dr. Craig- [facility]ist. He will evaluate the patient for further management. Medical Decision Making Differential Diagnosis Differential diagnosis: Etiologies such as metabolic, infection, hypo/hyper glycemia, electrolyte abnormalities, cardiac sources, intracerebral event, toxicologic, neurologic, as well as others were entertained. Medical Records Attestation: I reviewed the patient's medical records. Home Medications Current Medication List: was personally reviewed by me Laboratory Data Attestation: I reviewed the patient's lab results. Result diagrams: 07/07/19 12:30 07/07/19 12:30 Lab Results 07/07/19 07/07/19 07/07/19 Range/Units 12:30 12:30 12:30 WBC 9.81 (4.8-10.8) K/uL RBC 4.15 L (4.2-5.4) M/uL Hgb 12.7 (12.0-16.0) g/dL Hct 40.3 (37-47) % MCV 97.1 (80-100) fL MCH 30.6 (25-34) pg MCHC 31.5 L (32-36) g/dL RDW Std Deviation 48.0 H (36.4-46.3) fL RDW Coeff of Kristina 13.6 (11.5-14.5) % Plt Count 212 (130-400) K/uL MPV 11.6 H (7.4-10.4) fL Immature Gran % (Auto) 0.4 % Neut % (Auto) 72.8 % Lymph % (Auto) 16.1 % [place] % (Auto) 10.2 % Eos % (Auto) 0.4 % Baso % (Auto) 0.1 % Immature Gran # (Auto) 0.04 H (0.00-0.02) K/uL Neut # (Auto) 7.14 H (1.4-6.5) K/uL Lymph # (Auto) 1.58 (1.2-3.4) K/uL [place] # (Auto) 1.00 H (0.11-0.59) K/uL Eos # (Auto) 0.04 (0-0.5) K/uL Baso # (Auto) 0.01 (0-0.2) K/uL PT 10.9 (9.0-12.0) Seconds INR 1.1 (0.9-1.1) VBG pH (7.36-7.41) VBG pCO2 (38-50) mmHg VBG pO2 mmHg VBG HCO3 mmol/L VBG O2 Saturation % VBG Base Excess mEq/L Barometric Pressure mm/Hg Sodium 143 (136-145) mmol/L Potassium 3.4 L (3.5-5.1) mmol/L Chloride 99 (98-107) mmol/L Carbon Dioxide 38 H (21-32) mmol/L Anion Gap 6.0 (3-11) BUN 28 H (7-18) mg/dl Creatinine 0.99 (0.6-1.2) mg/dl Est Cr Clr Drug Dosing Not Reportable Est GFR ( Amer) 64.2 Est GFR (Non-Af Amer) 55.4 BUN/Creatinine Ratio 28.7 H (10-20) Glucose 186 H (70-99) mg/dl Calcium 9.1 (8.5-10.1) mg/dl Magnesium 2.2 (1.8-2.4) mg/dl Total Bilirubin 0.4 (0.2-1) mg/dl AST 17 (15-37) U/L ALT 25 (12-78) U/L Alkaline Phosphatase 70 (45-117) U/L Ammonia (11-32) umol/L Troponin I 0.097 H* (0-0.045) ng/ml Total Protein 6.4 (6.4-8.2) gm/dl Albumin 3.3 L (3.4-5.0) gm/dl Globulin 3.1 (2.5-4.0) gm/dl Albumin/Globulin Ratio 1.1 (0.9-2) TSH 3.410 (0.300-4.500) uIu/ml Urine Color Urine Appearance (Clear) Urine pH (4.5-7.5) Ur Specific Ranger (1.000-1.030) Urine Protein (Negative) Urine Glucose (UA) (Negative) Urine Ketones (Negative) Urine Blood (Negative) Urine Nitrite (Negative) Urine Bilirubin (Negative) Urine Urobilinogen (Negative) Ur Leukocyte Esterase (Negative) Urine WBC (Auto) (0-5) /hpf Urine RBC (Auto) (0-4) /hpf U Hyaline Cast (Auto) (0-5) /lpf U Epithel Cells (Auto) (0-5) /lpf Urine Bacteria (Auto) (Negative) Digoxin (0.8-2.0) ng/ml 07/07/19 07/07/19 07/07/19 Range/Units 12:30 13:03 13:03 WBC (4.8-10.8) K/uL RBC (4.2-5.4) M/uL Hgb (12.0-16.0) g/dL Hct (37-47) % MCV (80-100) fL MCH (25-34) pg MCHC (32-36) g/dL RDW Std Deviation (36.4-46.3) fL RDW Coeff of Kristina (11.5-14.5) % Plt Count (130-400) K/uL MPV (7.4-10.4) fL Immature Gran % (Auto) % Neut % (Auto) % Lymph % (Auto) % [place] % (Auto) % Eos % (Auto) % Baso % (Auto) % Immature Gran # (Auto) (0.00-0.02) K/uL Neut # (Auto) (1.4-6.5) K/uL Lymph # (Auto) (1.2-3.4) K/uL [place] # (Auto) (0.11-0.59) K/uL Eos # (Auto) (0-0.5) K/uL Baso # (Auto) (0-0.2) K/uL PT (9.0-12.0) Seconds INR (0.9-1.1) VBG pH 7.45 H (7.36-7.41) VBG pCO2 62 H (38-50) mmHg VBG pO2 47 mmHg VBG HCO3 42 mmol/L VBG O2 Saturation 83.0 % VBG Base Excess 15.2 mEq/L Barometric Pressure 727.6 mm/Hg Sodium (136-145) mmol/L Potassium (3.5-5.1) mmol/L Chloride (98-107) mmol/L Carbon Dioxide (21-32) mmol/L Anion Gap (3-11) BUN (7-18) mg/dl Creatinine (0.6-1.2) mg/dl Est Cr Clr Drug Dosing Est GFR ( Amer) Est GFR (Non-Af Amer) BUN/Creatinine Ratio (10-20) Glucose (70-99) mg/dl Calcium (8.5-10.1) mg/dl Magnesium (1.8-2.4) mg/dl Total Bilirubin (0.2-1) mg/dl AST (15-37) U/L ALT (12-78) U/L Alkaline Phosphatase (45-117) U/L Ammonia < 10.0 L (11-32) umol/L Troponin I (0-0.045) ng/ml Total Protein (6.4-8.2) gm/dl Albumin (3.4-5.0) gm/dl Globulin (2.5-4.0) gm/dl Albumin/Globulin Ratio (0.9-2) TSH (0.300-4.500) uIu/ml Urine Color Urine Appearance (Clear) Urine pH (4.5-7.5) Ur Specific Ranger (1.000-1.030) Urine Protein (Negative) Urine Glucose (UA) (Negative) Urine Ketones (Negative) Urine Blood (Negative) Urine Nitrite (Negative) Urine Bilirubin (Negative) Urine Urobilinogen (Negative) Ur Leukocyte Esterase (Negative) Urine WBC (Auto) (0-5) /hpf Urine RBC (Auto) (0-4) /hpf U Hyaline Cast (Auto) (0-5) /lpf U Epithel Cells (Auto) (0-5) /lpf Urine Bacteria (Auto) (Negative) Digoxin 2.1 H (0.8-2.0) ng/ml 07/07/19 Range/Units 14:14 WBC (4.8-10.8) K/uL RBC (4.2-5.4) M/uL Hgb (12.0-16.0) g/dL Hct (37-47) % MCV (80-100) fL MCH (25-34) pg MCHC (32-36) g/dL RDW Std Deviation (36.4-46.3) fL RDW Coeff of Kristina (11.5-14.5) % Plt Count (130-400) K/uL MPV (7.4-10.4) fL Immature Gran % (Auto) % Neut % (Auto) % Lymph % (Auto) % [place] % (Auto) % Eos % (Auto) % Baso % (Auto) % Immature Gran # (Auto) (0.00-0.02) K/uL Neut # (Auto) (1.4-6.5) K/uL Lymph # (Auto) (1.2-3.4) K/uL [place] # (Auto) (0.11-0.59) K/uL Eos # (Auto) (0-0.5) K/uL Baso # (Auto) (0-0.2) K/uL PT (9.0-12.0) Seconds INR (0.9-1.1) VBG pH (7.36-7.41) VBG pCO2 (38-50) mmHg VBG pO2 mmHg VBG HCO3 mmol/L VBG O2 Saturation % VBG Base Excess mEq/L Barometric Pressure mm/Hg Sodium (136-145) mmol/L Potassium (3.5-5.1) mmol/L Chloride (98-107) mmol/L Carbon Dioxide (21-32) mmol/L Anion Gap (3-11) BUN (7-18) mg/dl Creatinine (0.6-1.2) mg/dl Est Cr Clr Drug Dosing Est GFR ( Amer) Est GFR (Non-Af Amer) BUN/Creatinine Ratio (10-20) Glucose (70-99) mg/dl Calcium (8.5-10.1) mg/dl Magnesium (1.8-2.4) mg/dl Total Bilirubin (0.2-1) mg/dl AST (15-37) U/L ALT (12-78) U/L Alkaline Phosphatase (45-117) U/L Ammonia (11-32) umol/L Troponin I (0-0.045) ng/ml Total Protein (6.4-8.2) gm/dl Albumin (3.4-5.0) gm/dl Globulin (2.5-4.0) gm/dl Albumin/Globulin Ratio (0.9-2) TSH (0.300-4.500) uIu/ml Urine Color Yellow Urine Appearance Clear (Clear) Urine pH 7.0 (4.5-7.5) Ur Specific [place] 1.014 (1.000-1.030) Urine Protein Trace H (Negative) Urine Glucose (UA) Negative (Negative) Urine Ketones Negative (Negative) Urine Blood Negative (Negative) Urine Nitrite Negative (Negative) Urine Bilirubin Negative (Negative) Urine Urobilinogen Negative (Negative) Ur Leukocyte Esterase Negative (Negative) Urine WBC (Auto) 1-5 (0-5) /hpf Urine RBC (Auto) 0-4 (0-4) /hpf U Hyaline Cast (Auto) 5-10 H (0-5) /lpf U Epithel Cells (Auto) 5-10 H (0-5) /lpf Urine Bacteria (Auto) Negative (Negative) Digoxin (0.8-2.0) ng/ml Imaging Data Radiologist's Impression: Radiology results as stated below per my review and the radiologist's interpretation: SINGLE VIEW CHEST CLINICAL HISTORY: Generalized weakness. FINDINGS: 2 AP, portable, upright chest radiographs are compared to study dated 06/23/2019. The examination is degraded by portable technique and patient rotation. The heart is enlarged noting atherosclerotic calcification of the thoracic aorta. The pulmonary vasculature is noncongested. The mitral annulus is densely calcified. Atelectasis at the left lung base is similar to previous. No airspace consolidation or large pleural effusion is identified. No pneumothorax is seen. The skeletal structures are osteopenic. The bony thorax is grossly intact. Degenerative change and scoliosis are noted in the thoracic spine. IMPRESSION: Cardiomegaly with no acute cardiopulmonary abnormality. ACT 112: Negative or not required by law. Electronically signed by: Gavin Crisostomo M.D. 07/07/2019 1:[address] head/brain wo con CLINICAL HISTORY: 78 years-old Female presenting with prior ICH, now tired/fatigued. TECHNIQUE: Multidetector CT imaging of the head was performed without the use of intravenous contrast. IV contrast: None. One or more dose lowering techniques were used consistent with the principles of ALARA (as low as reasonably achievable), including automatic exposure control, mA or kV adjustment to tosha vidual patient size, and/or use of iterative reconstruction. COMPARISON: 06/23/2019. CT DOSE (mGy.cm): The estimated cumulative dose is 537.48 mGy.cm. FINDINGS: Chief Creative Officer topogram: Unremarkable. Ventricles and sulci normal in size. Interval evolution of the prior left cerebellar hemispheric infarct with surrounding hypoattenuation likely vasogenic edema. Regional mass effect has overall decreased from prior slightly. Redemonstration of the chronic. Median right occipital lobe infarct and old lac unar infarcts in the right basal ganglia and left thalamus. Periventricular white matter hypoattenuation likely chronic small vessel ischemic change. No acute territorial infarct. No midline shift. No extra-axial fluid collection. Paranasal sinuses and mastoid air cells clear. Calvarium intact. IMPRESSION: 1. Interval evolution of the left cerebellar hemispheric infarct with slightly decreased mass effect. No new hemorrhage. 2. Chronic small vessel ischemic change, chronic right occipital lobe infarct, and old lacunar infarcts as on prior exam. ACT 112: Negative or not required by law. Electronically signed by: Lennox Collins M.D. 07/07/2019 1:52 PM ECG Data Attestation: I personally reviewed and interpreted this ECG as follows: Indication: + weakness Rate (beats per minute): 46 Rhythm: + atrial fibrillation ECG ST segments: + T-wave inversions (lateral and inferior ) Comparison ECG Date: from (06/23/19) Change: the following changes noted (atrial fibrillation is new) Blood Pressure Blood Pressure Findings: Elevated blood pressure Blood Pressure Disposition: further management by hospitalist DEBORAH Velarde Patient is a 78-year-old female presenting for evaluation today of altered mental status. Recent intracranial hemorrhage at [place] currently at [facility] for rehab. Became lethargic and not interacting with staff over the weekend. Patient seems on fatigued on exam but there are focal neurological deficits. Family states that she is been tired since he left the hospital. Den ies fever, cough, urinary symptoms, shortness of breath, abdominal pain, or chest pain. Decreased oral intake reported. Repeat CT the head is completed although there is been no reports of trauma. Basic laboratory studies including ammonia and VBG were sent. Does not appear grossly septic but is bradycardic here in the 40s. Wonder if this may be symptomatic bradycardia. VBG does show pH of 7.45 with a CO2 of 62. Chest x-ray without significant findings. No leukocytosis or acute anemia. Renal function appears stable. Digoxin just above normal at 2.1. Mild troponin elevation slightly higher than previous. EKG shows slow A. fib question worsened ischemic changes. Did review and pat ient had normal cardiac catheterization after positive stress test in April of this year. Discussed briefly these changes with Dr. Henderson who performed a prior cardiac catheterization on her. Patient again without complaint of chest discomfort. Some thought that these are possibility related to her intracranial bleeding could be cerebral in nature. Did not recommend urgent cardiac evaluation and I do not feel anticoagulation would be beneficial at times. CT the head shows expected evolution of her prior intracranial hemorrhage but decreased mass-effect without new hemorrhage. Again believe this is more likely related to some symptomatic bradycardia. Urine sample is negative for infe ction. Discussed with patient and family and discussed with the hospitalist here for further evaluation of her fatigue. Impression & Plan Symptomatic bradycardia, Fatigue Discharge Plan Visit Data Chief Complaint: Lethargic Stated Complaint: LETHARGIC ED Provider: Elton Ge Discharge Problem: Symptomatic bradycardia, Fatigue Patient Disposition: Being Evaluated by Hospitalist Forms Stand Alone Forms: My [facility] Prescriptions Prescriptions: No Action carvedilol 12.5 mg tablet 12.5 mg PO BID RF: 0 sertraline 50 mg tablet 50 mg PO DAILY RF: 0 spironolactone 25 mg tablet 12.5 mg PO DAILY RF: 0 digoxin 125 mcg tablet 125 mcg PO DAILY RF: 0 furosemide [Lasix] 20 mg tablet 20 mg PO DAILY Qty: 3 RF: 0 warfarin 2 mg tablet 0 mg PO UD RF: 0 famotidine 20 mg Tablet 20 mg PO DAILY RF: 0 amlodipine 10 mg Tablet 10 mg PO DAILY RF: 0 lisinopril 10 mg Tablet 10 mg PO BID RF: 0 docusate sodium 100 mg Capsule 100 mg PO BID RF: 0 Referrals Referrals: Alonso Holman MD [Primary Care Provider] - Discharge Problem: Fatigue Qualifiers: Fatigue type: unspecified Qualified Code(s): R53.83 - Other fatigue The scribe's documentation has been prepared under my direction and personally reviewed by me in its entirety. I confirm that the note above accurately reflects all work, treatment, procedures, and medical decision making performed by me.
[2019-07-07] MEDS: ONDANSETRON INJ 2 MG/ML 2 ML VIAL IV PRN (19:01)
[2019-07-07] MEDS: carvediloL 6.25 MG TAB PO SCH (21:38)
[2019-07-07] MEDS: lisinopriL 10 MG TAB PO SCH (21:39)
[2019-07-07] MEDS: DOCUSATE SODIUM 100 MG CAP PO SCH (21:40)
[2019-07-07] MEDS: LACTATED RINGER'S 1,000 ML IV SCH (21:48)
[2019-07-07] MEDS ORDERED: POTASSIUM CHLORIDE 20 MEQ TABCR PO STA (21:57)
[2019-07-08 06:25] LABS: Basophils # (auto) 0.03 K/uL (0-0.2); Basophils % (auto) 0.3 %; Eosinophils # (auto) 0.06 K/uL (0-0.5); Eosinophils % (auto) 0.6 %; Hemoglobin 12.6 g/dL (12.0-16.0); Immature Granulocytes # (auto) 0.03 K/uL (0.00-0.02); Immature Granulocytes % (auto) 0.3 %; Lymphocytes # (auto) 2.07 K/uL (1.2-3.4); Mean Corpuscular Hemoglobin 31.8 pg (25-34); Mean Corpuscular Hgb Conc 33.2 g/dL (32-36); Mean Platelet Volume 11.3 fL (7.4-10.4); Monocytes # (auto) 0.99 K/uL (0.11-0.59); Neutrophils # (auto) 6.69 K/uL (1.4-6.5); Neutrophils % (auto) 67.8 %; Platelet Count 202 K/uL (130-400); RDW Coefficient of Variation 13.4 % (11.5-14.5); RDW Standard Deviation 46.4 fL (36.4-46.3); Red Blood Count 3.96 M/uL (4.2-5.4); White Blood Count 9.87 K/uL (4.8-10.8)
[2019-07-08 07:22] LABS: BUN Creatinine Ratio 29.8 (10-20); Bilirubin,Total 0.5 mg/dl (0.2-1); Calcium 8.8 mg/dl (8.5-10.1); Creatinine Clr Calc Pharmacy 45.4 ml/min; Est GFR (Non-African American) 61.3; Troponin I 0.103 ng/ml (0-0.045)
[2019-07-08 07:53] LABS: Estimated Average Glucose 140 mg/dl; Hemoglobin A1C 6.5 % (4.5-5.6)
[2019-07-08] MEDS: AMLODIPINE BESYLATE 5 MG TAB PO SCH (08:05)
[2019-07-08] MEDS: DOCUSATE SODIUM 100 MG CAP PO SCH ×2 (08:05→21:33)
[2019-07-08] MEDS: lisinopriL 10 MG TAB PO SCH ×2 (08:06→21:34)
[2019-07-08] MEDS: FAMOTIDINE 20 MG TAB PO SCH (08:06)
[2019-07-08] MEDS: SERTRALINE HCL 50 MG TABLET PO SCH (08:06)
[2019-07-08] MEDS: carvediloL 6.25 MG TAB PO SCH ×3 (08:07→21:34)
[2019-07-08] MEDS ORDERED: SPIRONOLACTONE 25 MG TAB PO SCH (09:00)
--- NOTE | 2019-07-08 09:35 | Hospitalist Progress Note ---
Date of Service July 08, 2019 Assessment & Plan (1) Symptomatic bradycardia: Bismark is a 78-year-old female with a past medical history of atrial fibrillation, A. fib, chronic systolic heart failure, hypertension, and restrictive lung disease who presented from [facility] with increased fatigue and decreased appetite and who was admitted for symptomatic bradycardia. Symptomatic bradycardia 2/2 digoxin toxicity versus sick sinus EKG shows A. fib with rates of 30-60 and aberrant conduction. She has a prior history of A. fib with RVR. 2.6-second pause this morning with a rate of 36. Patient with AICD in place. Patient on digoxin and carvedilol for A. fib rate control. Digoxin levels 07/07/2019 supratherapeutic at 2.1 compared to 0.2 from 06/23/2019. Digoxin held Continue to monitor patient on telemetry while digoxin is held. Coreg held this morning for bradycardia. If rates improve consider medical management with reduced level of digoxin and resume carvedilol. If her rates do not improve with digoxin hold, and/or she remains symptomatic may need to consider cardiac pacing and will consult cardiology. History of A. fib with RVR Coreg held this morning for bradycardia Digoxin held as above Anticoagulation held following cerebral hemorrhage, details below New systolic murmur, elevated troponin Patient denies chest pain, shoulder pain, shortness of breath, and diaphoresis New systolic murmur present, echo performed this morning shows preserved EF, mild mitral stenosis, moderate biatrial dilation, severe concentric LVH with no significant change from 04/2019. Troponin elevated to .103, peaked at 0.109. Patient has a chronic detectable elevated troponin likely due to history of severe concentric LVH. Follow clinically at this time. Patient with a normal cardiac catheterization 04/2019 Hypertension Continue amlodipine 10 mg daily Carvedilol as above Lisinopril 10 mg p.o. twice daily Spironolactone 12.5 mg p.o. daily History of cerebellar hemorrhage Patient previously on anticoagulation for A. fib. She had a fall while INR was supratherapeutic to 5.1 and sustained a left cerebral hemorrhage followed by [facility] neurology. Her anticoagulation has been held until 07/24/2019 with follow-up to [facility]. Cerebral hemorrhage may be contributing to her weakness, fatigue, and poor appetite. No acute worsening on CT. Elevated glucose Serum glucose 114 today No history of diabetes, A1c on admission 6.5 Given her age and comorbidities would likely have a liberalized A1c goal of less than 8, recommend outpatient follow-up and management Restrictive lung disease Due to history of kyphoscoliosis. DVT prophylaxis Chemical prophylaxis contraindicated in the setting of recent cerebellar hemorrhage Disposition: Ongoing (2) Elevated glucose: (3) Thoracoabdominal aneurysm: (4) Digoxin toxicity: (5) History of CVA (cerebrovascular accident): (6) History of cerebellar hemorrhage: (7) Pre-syncope: (8) Fatigue: Supervising Physician Co-Signing Physician Notes I personally examined the patient and verified all muhammad points of history and exam, discussed case, and agree with decision making with Dr Curry. Mostly feels extremely tired. No lightheadedness no syncope no near syncope. Updated patient and family extensively, answered all questions to the best my ability. Vitals noted, in general she is awake and alert fatigued but no distress. HEENT normocephalic atraumatic mucous membranes moist. Sinus bradycardia with a 2.6- second pause once on the monitor. No focal neuro deficits. Fatiguemost likely related to bradycardia predominantly, also likely due to deconditioning/malnutrition secondary to her recent stroke. Once her heart rates improve we will definitely want to see at least significant improvement in her fatigue, although I doubt it will fully resolve given the deconditioning/malnutrition part of it as well. Symptomatic bradycardiaappears to be related to digoxin and carvedilol. I do not believe she had escalating doses, but given her weight loss and failure to thrive, her "functional dose" was likely higher. Holding both medications and follow, given that she is not having significant symptoms beyond the fatigue we can hold off on Digibind at this time, continue to follow. Probable severe protein calorie malnutritionwhile her BMI is still about 21, and her albumin is 3, it is reported that she has had about a 16% weight loss over the last months. Certainly this would contribute to her fatigue as well. Continue to encourage nutrition. DVT prophylaxispharmacologic contraindicated due to recent intracranial bleed. Dakota Sofia is seen at the bedside this morning. She reports she is not having chest pain, but is extremely fatigued. She reports for several weeks she has had persistent and constant fatigue which limits her ability to stay awake and ambulate. She has not been able to walk due to fatigue, but denies focal neurologic weakness or change in sensation. She denies syncope or presyncope, but endorses she is so tired that she just has to fall asleep for extended periods at times. She denies numbness, tingling, or focal neurologic changes in the last few days. She is on 2 L of nasal cannula today, she denies prior oxygen requirement. Denies fever, chills, sweats, cough, or shortness of breath lying in bed. Review of Systems Review of Systems: Constitutional: Denies fever, chills. Endorses severe fatigue Eyes: Denies vision change ENT: Denies ear pain, sore throat, sinus pain Cardiovascular: Denies Chest pain, chest pressure, palpitations, extremity swelling Respiratory: Denies cough, sputum production, difficulty breathing Gastrointestinal: Denies abdominal pain, nausea, vomiting Genitourinary: Denies pain with urination, urinary urgency, urinary frequency Musculoskeletal: Endorses severe weakness from fatigue, but nonfocal. Denies muscle aches/pain, joint aches/pain Integumentary:Denies rash, lesions, bruising Neurological: Denies headache, numbness, tingling Physical Exam Physical Exam: General: A&Ox3. Appears fatigued. Thin. NAD. Cooperative. HEENT: Atraumatic, normocephalic. Pulm: CTAB A&P. -wheezes, -rales, -rhonchi. Symmetrical chest rise. No increase work of breathing. No respiratory distress. Cardiac: Irregularly irregular, bradycardic to mid 30s. Systolic murmur appreciated. No JVD. No distal extremity swelling. Abdominal: Nontender, nondistended, soft. BS present. Results & Data ([facility]) Vital Signs (Past 12 Hours) Vital Signs Temp Pulse Pulse Resp BP BP Pulse Ox 07/08/19 07:57 36.7 C 57 L 16 171/79 H 98 07/08/19 07:07 48 L 07/08/19 04:28 36.5 C 70 20 147/75 H 92 07/08/19 00:32 70 07/07/19 23:34 36.8 C 59 L 20 127/58 L 99 07/07/19 21:41 57 L 147/74 H Resident Activity Tracking Resident Involvement: Resident Care Provided Care Provided: Adult Hospital Medicine (1) Digoxin toxicity Encounter type: initial encounter Injury intent: accidental or unintentional Qualified Code(s): T46.0X1A - Poisoning by cardiac-stimulant glycosides and drugs of similar action, accidental (unintentional), initial encounter (2) Fatigue Fatigue type: unspecified Qualified Code(s): R53.83 - Other fatigue (3) Thoracoabdominal aneurysm Presence of rupture: without rupture Qualified Code(s): I71.6 - Thoracoabdominal aortic aneurysm, without rupture
[2019-07-08] MEDS: LACTATED RINGER'S 1,000 ML IV SCH ×2 (10:19→22:47)
--- NOTE | 2019-07-08 10:21 | XCELERA ---
[id number] [id number]___[id number]
--- NOTE | 2019-07-08 12:28 | Electrocardiogram Report ---
Test Reason : Blood Pressure : / mmHG Vent. Rate : 072 BPM Atrial Rate : 000 BPM P-R Int : 000 ms QRS Dur : 086 ms QT Int : 362 ms P-R-T Axes : 000 002 185 degrees QTc Int : 396 ms Atrial fibrillation Abnormal ECG When compared with ECG of 07-JUL-2019 12:24, Vent. rate has increased BY 26 BPM Confirmed by Bertin Dumont ([id number]) on 07/08/2019 12:27:35 PM Referred By: REFERRED SELF Confirmed By:Bertin Dumont
--- NOTE | 2019-07-08 18:32 | Billing Data ---
Date of Service July 08, 2019 Coding Level of Care Code 62832 Subseq Hosp Care Lvl 3
[2019-07-09 02:52] LABS: Appearance Urine Cloudy (Clear); Bacteria Urine Automated 4+ (Negative); Bilirubin Urine Negative (Negative); Blood Urine 3+ (Negative); Color Urine Yellow; Glucose Urine UA Negative (Negative); Ketones Urine Negative (Negative); Leukocyte Esterase Urine 3+ (Negative); Nitrite Urine Positive (Negative); RBC Urine Automated >30 /hpf (0-4); Specific Gravity Urine 1.012 (1.000-1.030); Urobilinogen Urine Negative (Negative); WBC Urine Automated >30 /hpf (0-5); pH Urine >= 9.0 (4.5-7.5)
[2019-07-09 03:08] LABS: Protein Urine 1+ (Negative); Sulfosalicylic Acid Urine Positive (Negative)
[2019-07-09 05:56] LABS: Basophils # (auto) 0.01 K/uL (0-0.2); Basophils % (auto) 0.1 %; Eosinophils # (auto) 0.07 K/uL (0-0.5); Eosinophils % (auto) 0.7 %; Hematocrit (blood only) 37.3 % (37-47); Hemoglobin 11.7 g/dL (12.0-16.0); Immature Granulocytes # (auto) 0.04 K/uL (0.00-0.02); Immature Granulocytes % (auto) 0.4 %; Lymphocytes # (auto) 1.93 K/uL (1.2-3.4); Lymphocytes % (auto) 19.9 %; Mean Corpuscular Hemoglobin 30.7 pg (25-34); Mean Corpuscular Hgb Conc 31.4 g/dL (32-36); Mean Corpuscular Volume 97.9 fL (80-100); Mean Platelet Volume 11.1 fL (7.4-10.4); Monocytes # (auto) 1.16 K/uL (0.11-0.59); Monocytes % (auto) 11.9 %; Neutrophils # (auto) 6.51 K/uL (1.4-6.5); Platelet Count 201 K/uL (130-400); RDW Coefficient of Variation 13.6 % (11.5-14.5); RDW Standard Deviation 48.1 fL (36.4-46.3); Red Blood Count 3.81 M/uL (4.2-5.4); White Blood Count 9.72 K/uL (4.8-10.8)
[2019-07-09 06:32] LABS: BUN Creatinine Ratio 32.5 (10-20); Calcium 8.8 mg/dl (8.5-10.1); Creatinine Clr Calc Pharmacy 58.2 ml/min; Est GFR (African American) 95.9; Est GFR (Non-African American) 82.7; Potassium 3.8 mmol/L (3.5-5.1)
[2019-07-09] MEDS: carvediloL 6.25 MG TAB PO SCH ×2 (08:46→21:06)
[2019-07-09] MEDS: DOCUSATE SODIUM 100 MG CAP PO SCH ×2 (08:46→20:36)
[2019-07-09] MEDS: lisinopriL 10 MG TAB PO SCH ×2 (08:48→20:37)
[2019-07-09] MEDS: SERTRALINE HCL 50 MG TABLET PO SCH (08:48)
[2019-07-09] MEDS: AMLODIPINE BESYLATE 5 MG TAB PO SCH (08:48)
[2019-07-09] MEDS: FAMOTIDINE 20 MG TAB PO SCH (08:49)
--- NOTE | 2019-07-09 09:09 | Hospitalist Progress Note ---
Date of Service July 09, 2019 Assessment & Plan (1) Symptomatic bradycardia: Bismark is a 78-year-old female with a past medical history of atrial fibrillation, A. fib, chronic systolic heart failure, hypertension, and restrictive lung disease who presented from [facility] with increased fatigue and decreased appetite and who was admitted for symptomatic bradycardia. Symptomatic bradycardia 2/2 digoxin toxicity versus sick sinus EKG shows A. fib with rates of 30-60 and aberrant conduction. She has a prior history of A. fib with RVR. 2.6-second pause this morning with a rate of 36. Patient with AICD in place. Patient on digoxin and carvedilol for A. fib rate control. Digoxin levels 07/07/2019 supratherapeutic at 2.1 compared to 0.2 from 06/23/2019. Digoxin held Continue to monitor patient on telemetry while digoxin is held. Heart rates improved overnight, intermittently bradycardic this morning. Heart rate at bedside approximately 60. - Coreg 3.125 daily. - Short run of wide complex ventricular rhythm. Continue coreg as above and optimize electrolytes. Nursing to notify provider if HR <50 at time of coreg dosing. History of A. fib with RVR Coreg as above Digoxin held as above Anticoagulation held following cerebral hemorrhage, details below New systolic murmur, elevated troponin Patient denies chest pain, shoulder pain, shortness of breath, and diaphoresis New systolic murmur present, echo performed this morning shows preserved EF, mild mitral stenosis, moderate biatrial dilation, severe concentric LVH with no significant change from 04/2019. Troponin elevated to .103, peaked at 0.109. Patient has a chronic detectable elevated troponin likely due to history of severe concentric LVH. Follow clinically at this time. Patient with a normal cardiac catheterization 04/2019 Hypertension Continue amlodipine 10 mg daily Carvedilol as above Lisinopril 10 mg p.o. twice daily Spironolactone 12.5 mg p.o. daily Hypercarbia - Elevated bicarp on BMP - ?If chronic CO2 retention/sleep apnea may contribute to her fatigue. - Overnight pulseox study on 2LO2, ABG tomorrow morning History of cerebellar hemorrhage Patient previously on anticoagulation for A. fib. She had a fall while INR was supratherapeutic to 5.1 and sustained a left cerebral hemorrhage followed by [facility] neurology. Her anticoagulation has been held until 07/24/2019 with follow-up to [facility]. Cerebral hemorrhage may be contributing to her weakness, fatigue, and poor appetite. No acute worsening on CT. Asymptomatic Bacteruria - Infected appearing UA sent for culture overnight - Pt denies dysuria, polyuria, retention, incontinence - Defer abx, follow clinically Elevated glucose Serum glucose 114 today No history of diabetes, A1c on admission 6.5 Given her age and comorbidities would likely have a liberalized A1c goal of less than 8, recommend outpatient follow-up and management Restrictive lung disease Due to history of kyphoscoliosis. DVT prophylaxis Chemical prophylaxis contraindicated in the setting of recent cerebellar hemorrhage Disposition: Ongoing (2) Elevated glucose: (3) Thoracoabdominal aneurysm: (4) Digoxin toxicity: (5) History of CVA (cerebrovascular accident): (6) History of cerebellar hemorrhage: (7) Pre-syncope: (8) Fatigue: Supervising Physician Co-Signing Physician Notes I personally examined the patient and verified all muhammad points of history and exam, discussed case, and agree with decision making with Dr Curry. Feels about the same. Still very tired. Heart rates did improve a little but still running quite low. Vitals noted, in general she is awake and alert fatigued but no distress. HEENT normocephalic atraumatic mucous membranes moist. Sinus bradycardia persists although rate improved a little. No focal neuro deficits. Fatiguemost likely related to bradycardia predominantly, also likely due to deconditioning/malnutrition secondary to her recent stroke. Given her persistent elevated bicarbonate on her basic metabolic panel, we also wonder if she has any type of sleep apnea or hypoventilation going onovernight pulse ox and a.m. blood gas will help elucidate any truth to this. Once her heart rates improve we will definitely want to see at least significant improvement in her fatigue, although I doubt it will fully resolve given the deconditioning/malnutrition part of it as well. Symptomatic bradycardiaappears to be related to digoxin and carvedilol. Continue to hold digoxin, markedly reduced dose of carvedilol. Wide-complex tachycardiaonly a few beats, but she does have an ICD, indicating that she certainly has a propensity towards these. While we would like to hold the carvedilol entirely for bradycardia, we will continue to very low dose with hold parameters for this. Replace mag and K. Probable severe protein calorie malnutritionwhile her BMI is still about 21, and her albumin is 3, it is reported that she has had about a 16% weight loss over the last months. Certainly this would contribute to her fatigue as well. Continue to encourage nutrition. DVT prophylaxispharmacologic contraindicated due to recent intracranial bleed. Subjective Patient is seen at the bedside this morning. She is sitting up eating a small amount of breakfast, she reports she has diminished appetite but is not nauseous., reports she feels extremely fatigued. No change in fatigue compared to yesterday. Per nursing she had foul-smelling urine overnight, patient denies any pain with urination, increased urinary frequency, or increased urinary urge. Afebrile, no fever chills or sweats. No chest pain or chest pressure this morning. No shortness of breath at rest, but feels too fatigued to ambulate. No additional questions or concerns this morning. Review of Systems Review of Systems: Constitutional: Denies fever, chills. Endorses severe fatigue Eyes: Denies vision change ENT: Denies ear pain, sore throat, sinus pain Cardiovascular: Denies Chest pain, chest pressure, palpitations, extremity swelling Respiratory: Denies cough, sputum production, difficulty breathing Gastrointestinal: Denies abdominal pain, nausea, vomiting Genitourinary: Denies pain with urination, urinary urgency, urinary frequency Musculoskeletal: Endorses severe weakness from fatigue, but nonfocal. Denies muscle aches/pain, joint aches/pain Integumentary:Denies rash, lesions, bruising Neurological: Denies headache, numbness, tingling Physical Exam Physical Exam: General: A&Ox3. Appears fatigued. Thin. NAD. Cooperative. HEENT: Atraumatic, normocephalic. Pulm: CTAB A&P. -wheezes, -rales, -rhonchi. Symmetrical chest rise. No increase work of breathing. No respiratory distress. Cardiac: Irregularly irregular, bradycardic 40s-60s. Systolic murmur appreciated. No JVD. No distal extremity swelling. Abdominal: Nontender, nondistended, soft. BS present. Results & Data ([facility]) Vital Signs (Past 12 Hours) Vital Signs Temp Pulse Pulse Pulse Resp BP BP 07/09/19 07:55 36.7 C 56 L 55 L 16 07/09/19 07:18 46 L 07/09/19 03:21 37.0 C 72 20 146/77 H 07/08/19 23:05 37.1 C 59 L 20 154/72 H Pulse Ox 07/09/19 07:55 96 07/09/19 07:18 07/09/19 03:21 97 07/08/19 23:05 95 Resident Activity Tracking Resident Involvement: Resident Care Provided Care Provided: Adult Hospital Medicine (1) Digoxin toxicity Encounter type: initial encounter Injury intent: accidental or unintentional Qualified Code(s): T46.0X1A - Poisoning by cardiac-stimulant glycosides and drugs of similar action, accidental (unintentional), initial encounter (2) Fatigue Fatigue type: unspecified Qualified Code(s): R53.83 - Other fatigue (3) Thoracoabdominal aneurysm Presence of rupture: without rupture Qualified Code(s): I71.6 - Thoracoabd ominal aortic aneurysm, without rupture
[2019-07-09] MEDS: LACTATED RINGER'S 1,000 ML IV SCH (12:08)
--- NOTE | 2019-07-09 14:27 | Electrocardiogram Report ---
Test Reason : Blood Pressure : / mmHG Vent. Rate : 061 BPM Atrial Rate : 000 BPM P-R Int : 000 ms QRS Dur : 088 ms QT Int : 412 ms P-R-T Axes : 000 070 244 degrees QTc Int : 414 ms Atrial fibrillation Abnormal ECG When compared with ECG of 08-JUL-2019 06:47, Questionable change in QRS axis Non-specific change in ST segment in Inferior leads T wave inversion less evident in Lateral leads Confirmed by Bertin Dumont ([id number]) on 07/09/2019 2:27:28 PM Referred By: REFERRED SELF Confirmed By:Bertin Dumont
--- NOTE | 2019-07-09 14:30 | Electrocardiogram Report ---
Test Reason : Blood Pressure : / mmHG Vent. Rate : 054 BPM Atrial Rate : 000 BPM P-R Int : 000 ms QRS Dur : 082 ms QT Int : 416 ms P-R-T Axes : 000 020 186 degrees QTc Int : 394 ms Atrial fibrillation with slow ventricular response Abnormal ECG When compared with ECG of 09-JUL-2019 07:18, (unconfirmed) No significant change was found Confirmed by Bertin Dumont ([id number]) on 07/09/2019 2:30:14 PM Referred By: REFERRED SELF Confirmed By:Bertin Dumont
[2019-07-09] MEDS: MAGNESIUM OXIDE 400 MG TAB PO SCH (15:55)
--- NOTE | 2019-07-09 17:05 | Billing Data ---
Date of Service July 09, 2019 Coding Level of Care Code 71910 Subseq Hosp Care Lvl 3
[2019-07-09] MEDS: POTASSIUM CHLORIDE 20 MEQ TABCR PO SCH (20:37)
[2019-07-10] MEDS: LACTATED RINGER'S 1,000 ML IV SCH ×2 (00:17→12:56)
[2019-07-10 08:27] LABS: Basophils # (auto) 0.01 K/uL (0-0.2); Basophils % (auto) 0.1 %; Eosinophils # (auto) 0.08 K/uL (0-0.5); Eosinophils % (auto) 0.8 %; Hematocrit (blood only) 37.5 % (37-47); Immature Granulocytes # (auto) 0.03 K/uL (0.00-0.02); Immature Granulocytes % (auto) 0.3 %; Lymphocytes % (auto) 16.5 %; Mean Corpuscular Hemoglobin 30.9 pg (25-34); Mean Corpuscular Volume 96.6 fL (80-100); Monocytes % (auto) 11.4 %; Neutrophils # (auto) 6.86 K/uL (1.4-6.5); Neutrophils % (auto) 70.9 %; Platelet Count 193 K/uL (130-400); RDW Coefficient of Variation 13.5 % (11.5-14.5); RDW Standard Deviation 47.4 fL (36.4-46.3); Red Blood Count 3.88 M/uL (4.2-5.4); White Blood Count 9.68 K/uL (4.8-10.8)
[2019-07-10 08:29] LABS: Base Excess ABG 10.8 mEq/L (-9-1.8); HCO3 ABG 36 mmol/L (19-24); Oxygen Saturation ABG 97.6 % (90-95); PCO2 ABG 47 mmHg (35-46); PO2 ABG 97 mmHg (80-95); pH ABG 7.49 (7.35-7.45)
[2019-07-10 08:30] LABS: Allen Test Pos (Pos)
[2019-07-10] MEDS: MAGNESIUM OXIDE 400 MG TAB PO SCH (08:52)
[2019-07-10] MEDS: carvediloL 6.25 MG TAB PO SCH ×4 (08:52→21:02)
[2019-07-10] MEDS: lisinopriL 10 MG TAB PO SCH ×2 (08:53→21:01)
[2019-07-10] MEDS: AMLODIPINE BESYLATE 5 MG TAB PO SCH (08:54)
[2019-07-10] MEDS: POTASSIUM CHLORIDE 20 MEQ TABCR PO SCH ×2 (08:54→21:01)
[2019-07-10] MEDS: SERTRALINE HCL 50 MG TABLET PO SCH (08:54)
[2019-07-10] MEDS: FAMOTIDINE 20 MG TAB PO SCH (08:54)
[2019-07-10] MEDS: DOCUSATE SODIUM 100 MG CAP PO SCH ×2 (08:55→21:01)
[2019-07-10 09:07] LABS: BUN Creatinine Ratio 23.7 (10-20); Calcium 9.1 mg/dl (8.5-10.1); Est GFR (African American) 103.2; Potassium 3.9 mmol/L (3.5-5.1)
--- NOTE | 2019-07-10 14:14 | Hospitalist Progress Note ---
Date of Service July 10, 2019 Assessment & Plan (1) Symptomatic bradycardia: Bismark is a 78-year-old female with a past medical history of atrial fibrillation, A. fib, chronic systolic heart failure, hypertension, and restrictive lung disease who presented from [facility] with increased fatigue and decreased appetite and who was admitted for symptomatic bradycardia. Symptomatic bradycardia 2/2 digoxin toxicity versus sick sinus EKG shows A. fib with rates of 30-60 and aberrant conduction. She has a prior history of A. fib with RVR. no pauses overnight Patient with AICD in place. Patient on digoxin and carvedilol for A. fib rate control prior to admission. Digoxin levels 07/07/2019 supratherapeutic at 2.1 compared to 0.2 from 06/23/2019. Digoxin held Continue to monitor patient on telemetry while digoxin is held. Heart rates improved overnight, uptrending with digoxin washout. - Coreg 3.125 twice daily. -Heart rate uptrending History of A. fib with RVR Coreg as above Digoxin held as above Anticoagulation held following cerebral hemorrhage, details below New systolic murmur, elevated troponin Patient denies chest pain, shoulder pain, shortness of breath, and diaphoresis New systolic murmur present, echo performed this morning shows preserved EF, mild mitral stenosis, moderate biatrial dilation, severe concentric LVH with no significant change from 04/2019. Troponin elevated to .103, peaked at 0.109. Patient has a chronic detectable elevated troponin likely due to history of severe concentric LVH. Follow clinically at this time. Patient with a normal cardiac catheterization 04/2019 Hypertension Continue amlodipine 10 mg daily Carvedilol as above Lisinopril 10 mg p.o. twice daily Spironolactone 12.5 mg p.o. daily Nighttime hypoxemia/sleep apnea Overnight sleep study showed 2.5 hours and more than 23 desaturations with extended periods of desaturations into the low 80s Patient also has biatrial dysfunction and persistent fatiguee CPAP/BiPAP nightly per RT protocol Hypercarbia - Elevated bicarb on BMP -ABG 7.49/40 7. Consistent with a primary metabolic alkalosis with secondary respiratory alkalosis. 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 fib. She had a fall while INR was supratherapeutic to 5.1 and sustained a left cerebral hemorrhage followed by [facility] neurology. Her anticoagulation has been held until 07/24/2019 with [place] [facility] Cerebral hemorrhage may be contributing to her weakness, fatigue, and poor appetite. No acute worsening on CT. Asymptomatic Bacteruria - Infected appearing UA, patient asymptomatic. - Pt denies dysuria, polyuria, retention, incontinence - Defer abx, follow clinically Elevated glucose Serum glucose 114 today No history of diabetes, A1c on admission 6.5 Given her age and comorbidities would likely have a liberalized A1c goal of less than 8, recommend outpatient follow-up and management Restrictive lung disease Due to history of kyphoscoliosis. DVT prophylaxis Chemical prophylaxis contraindicated in the setting of recent cerebellar hemorrhage Disposition: Ongoing (2) Elevated glucose: (3) Thoracoabdominal aneurysm: (4) Digoxin toxicity: (5) History of CVA (cerebrovascular accident): (6) History of cerebellar hemorrhage: (7) Pre-syncope: (8) Fatigue: Supervising Physician Co-Signing Physician Notes I personally examined the patient and verified all muhammad points of history and exam, discussed case, and agree with decision making with Dr Curry. Still tired, but today she is at least awake enough to have a good conversation with me and maintain focus. She notes that she feels like if she got uninterrupted sleep she would feel better, but as we discussed her heart rate issues and probable sleep apnea issues she seems to express a good understandingdefinitely much more interactive than last few days. Still seems somewhat limited from fatigue but improved. Vitals noted, in general she is awake and alert and able to interact and hold attention. HEENT normocephalic atraumatic mucous membranes moist. Heart rates improving. No focal neuro deficits. Fatigueappearing to be multifactorialdeconditioning malnutrition related to her cerebellar stroke certainly looms large, her symptomatic bradycardia seems to have been a big part of the picture and does seem to be improving, and it appears we have unearthed a degree of sleep apnea or possibly even hypoventilation type breathing mechanics when she is asleep. Continue to treat all factors Symptomatic bradycardiaappears to be related to digoxin and carvedilol. Continue to hold digoxin, markedly reduced dose of carvedilolrates are improving and her alertness seems to be improving to a degree as well. Sleep apnea/hypoventilationmore than likely she has regular sleep apnea and then with her restrictive lung disease it boils over to a degree of hypoventilation syndrome. More than likely it is been going on for quite a while, but as is the case with most patients with sleep apnea, she likely was not aware of it/did not realize the symptoms she was feeling given that it would been so daily is to feel like a normal. Discussed this with her and then with daughter, will give trial to pressure support therapy overnightwe will ask resp iratory therapy to titrate as is not clear if she will need CPAP or BiPAP. Discussed with patient it may take a little while to get used to a mask or nasal pillow. Definitely would benefit from sleep medicine evaluation as outpatient Wide-complex tachycardiaonly a few beats, but she does have an ICD, indicating that she certainly has a propensity towards these. While we would like to hold the carvedilol entirely for bradycardia, we will continue to very low dose with hold parameters for this. Replace mag and K. has not appeared to be an issue today. Probable severe protein calorie malnutritionwhile her BMI is still about 21, and her albumin is 3, it is reported that she has had about a 16% weight loss over the last months. Certainly this would contribute to her fatigue as well. Continue to encourage nutrition. asked dtr to encourage as well. DVT prophylaxispharmacologic contraindicated due to recent intracranial bleed. Subjective Patient seen at bedside this morning. Feels similar to prior days, but makes improved eye contact and stays awake through conversion. otherwise unchanged. Review of Systems Review of Systems: ROS negative except as noted in HPI and below Physical Exam Physical Exam: General: A&Ox3. Appears fatigued. Thin. NAD. Cooperative. HEENT: Atraumatic, normocephalic. Pulm: CTAB A&P. -wheezes, -rales, -rhonchi. Symmetrical chest rise. No increase work of breathing. No respiratory distress. Cardiac: Irregularly irregular, bradycardic 50s-60s. Systolic murmur appreciated. No JVD. No distal extremity swelling. Abdominal: Nontender, nondistended, soft. BS present. Results & Data ([facility]) Vital Signs (Past 12 Hours) Vital Signs Temp Pulse Pulse Pulse Resp BP Pulse Ox 07/10/19 03:21 36.8 C 62 18 162/84 H 92 02/05/20 23:46 55 L 07/09/19 22:49 36.8 C 74 18 162/71 H 94 07/09/19 21:24 54 L Pulse Ox 07/10/19 03:21 07/09/19 23:46 07/09/19 22:49 07/09/19 21:24 98 Resident Activity Tracking Resident Involvement: Resident Care Provided Care Provided: Adult Hospital Medicine (1) Digoxin toxicity Encounter type: initial encounter Injury intent: accidental or unintentional Qualified Code(s): T46.0X1A - Poisoning by cardiac-stimulant glycosides and drugs of similar action, accidental (unintentional), initial encounter (2) Fatigue Fatigue type: unspecified Qualified Code(s): R53.83 - Other fatigue (3) Thoracoabdominal aneurysm Presence of rupture: without rupture Qualified Code(s): I71.6 - Thoracoabdominal aortic aneurysm, without rupture
--- NOTE | 2019-07-10 14:17 | Electrocardiogram Report ---
Test Reason : Blood Pressure : / mmHG Vent. Rate : 063 BPM Atrial Rate : 000 BPM P-R Int : 000 ms QRS Dur : 086 ms QT Int : 406 ms P-R-T Axes : 000 019 194 degrees QTc Int : 415 ms Atrial fibrillation with premature ventricular or aberrantly conducted complexes Left ventricular hypertrophy with repolarization abnormality Abnormal ECG When compared with ECG of 09-JUL-2019 09:11, ST more depressed Lateral leads Confirmed by Bertin Dumont ([id number]) on 07/10/2019 2:16:37 PM Referred By: REFERRED SELF Confirmed By:Bertin Dumont
--- NOTE | 2019-07-10 17:57 | Billing Data ---
Date of Service July 10, 2019 Coding Level of Care Code 44505 Subseq Hosp Care Lvl 3
[2019-07-11] MEDS: LACTATED RINGER'S 1,000 ML IV SCH ×2 (01:21→13:15)
[2019-07-11 06:59] LABS: Basophils # (auto) 0.02 K/uL (0-0.2); Basophils % (auto) 0.2 %; Eosinophils # (auto) 0.13 K/uL (0-0.5); Eosinophils % (auto) 1.4 %; Hematocrit (blood only) 37.9 % (37-47); Hemoglobin 11.9 g/dL (12.0-16.0); Immature Granulocytes # (auto) 0.03 K/uL (0.00-0.02); Immature Granulocytes % (auto) 0.3 %; Lymphocytes % (auto) 18.1 %; Mean Corpuscular Hemoglobin 30.4 pg (25-34); Mean Corpuscular Hgb Conc 31.4 g/dL (32-36); Mean Corpuscular Volume 96.9 fL (80-100); Mean Platelet Volume 11.3 fL (7.4-10.4); Monocytes % (auto) 11.7 %; Neutrophils # (auto) 6.39 K/uL (1.4-6.5); Neutrophils % (auto) 68.3 %; Platelet Count 185 K/uL (130-400); RDW Coefficient of Variation 13.7 % (11.5-14.5); RDW Standard Deviation 48.2 fL (36.4-46.3); Red Blood Count 3.91 M/uL (4.2-5.4); White Blood Count 9.37 K/uL (4.8-10.8)
[2019-07-11 07:38] LABS: BUN Creatinine Ratio 19.7 (10-20); Calcium 8.9 mg/dl (8.5-10.1); Creatinine Clr Calc Pharmacy 73.8 ml/min; Est GFR (Non-African American) 90.6; Potassium 3.7 mmol/L (3.5-5.1)
[2019-07-11] MEDS: POTASSIUM CHLORIDE 20 MEQ TABCR PO SCH ×2 (08:21→21:48)
[2019-07-11] MEDS: SERTRALINE HCL 50 MG TABLET PO SCH (08:22)
[2019-07-11] MEDS: lisinopriL 10 MG TAB PO SCH ×2 (08:22→21:51)
[2019-07-11] MEDS: AMLODIPINE BESYLATE 5 MG TAB PO SCH (08:22)
[2019-07-11] MEDS: FAMOTIDINE 20 MG TAB PO SCH (08:22)
[2019-07-11] MEDS: MAGNESIUM OXIDE 400 MG TAB PO SCH (08:22)
[2019-07-11] MEDS: DOCUSATE SODIUM 100 MG CAP PO SCH ×2 (08:22→21:46)
[2019-07-11] MEDS: carvediloL 6.25 MG TAB PO SCH ×2 (08:23→21:51)
--- NOTE | 2019-07-11 10:20 | Hospitalist Progress Note ---
Date of Service July 11, 2019 Assessment & Plan (1) Symptomatic bradycardia: Bsimark is a 78-year-old female with a past medical history of atrial fibrillation, A. fib, chronic systolic heart failure, hypertension, and restrictive lung disease who presented from [facility] with increased fatigue and decreased appetite and who was admitted for symptomatic bradycardia. Symptomatic bradycardia 2/2 digoxin toxicity versus sick sinus EKG on admit shows A. fib with rates of 30-60 and aberrant conduction. She has a prior history of A. fib with RVR. no pauses overnight Patient with AICD in place. Patient on digoxin and carvedilol for A. fib rate control prior to admission. Digoxin levels 07/07/2019 supratherapeutic at 2.1 compared to 0.2 from 06/23/2019. Digoxin held Continue to monitor patient on telemetry Heart rates improved overnight, uptrending with digoxin washout. - Coreg 3.125 twice daily. If she begins to become tachycardic as digoxin washout is complete double Coreg to 6.25 mg twice daily. May give dose of IV Lopressor if needed. -Heart rate uptrending, 60s to 70s overnight and today. History of A. fib with RVR Coreg as above Digoxin held as above Anticoagulation held following cerebral hemorrhage, details below New systolic murmur, elevated troponin Patient denies chest pain, shoulder pain, shortness of breath, and diaphoresis New systolic murmur present, echo performed this morning shows preserved EF, mild mitral stenosis, moderate biatrial dilation, severe concentric LVH with no significant change from 04/2019. Troponin elevated to .103, peaked at 0.109. Patient has a chronic detectable elevated troponin likely due to history of severe concentric LVH. Follow clinically at this time. Patient with a normal cardiac catheterization 04/2019 Hypertension Continue amlodipine 10 mg daily Carvedilol as above Lisinopril 10 mg p.o. twice daily Spironolactone 12.5 mg p.o. daily Nighttime hypoxemia/sleep apnea Overnight sleep study showed 2.5 hours and more than 23 desaturations with extended periods of desaturations into the low 80s Patient also has biatrial dysfunction and persistent fatigue CPAP/BiPAP nightly per RT protocol Patient tolerated BiPAP poorly last night. - Pt would benefit from followup as outpatient with nasal pillow trial Hypercarbia - Elevated bicarb on BMP -ABG 7.49/40 7. Consistent with a primary metabolic alkalosis with secondary respiratory alkalosis. 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 fib. She had a fall while INR was supratherapeutic to 5.1 and sustained a left cerebral hemorrhage followed by [facility] neurology. Her anticoagulation has been held until 07/24/2019 with follow-up to [facility]. Cerebral hemorrhage may be contributing to her weakness, fatigue, and poor appetite. No acute worsening on CT. Asymptomatic Bacteruria - Infected appearing UA, patient asymptomatic. - Pt denies dysuria, polyuria, retention, incontinence - Defer abx, follow clinically Elevated glucose Serum glucose 114 today No history of diabetes, A1c on admission 6.5 Given her age and comorbidities would likely have a liberalized A1c goal of less than 8, recommend outpatient follow-up and management Restrictive lung disease Due to history of kyphoscoliosis. DVT prophylaxis Chemical prophylaxis contraindicated in the setting of recent cerebellar hemorrhage Disposition: Anticipate discharge to [facility], bed available on Sunday. (2) Elevated glucose: (3) Thoracoabdominal aneurysm: (4) Digoxin toxicity: (5) History of CVA (cerebrovascular accident): (6) History of cerebellar hemorrhage: (7) Pre-syncope: (8) Fatigue: Supervising Physician Co-Signing Physician Notes I personally examined the patient and verified all muhammad points of history and exam, discussed case, and agree with decision making with Dr Curry. Still tired, but voices that she did would not like the BiPAP. Daughter then arrived and I updated her to the best my ability as well. Vitals noted, in general she is awake and alert and able to interact and hold attention. HEENT normocephalic atraumatic mucous membranes moist. Heart rates improving. No focal neuro deficits. Fatigueappearing to be multifactorialdeconditioning malnutrition related to her cerebellar stroke certainly looms large, her symptomatic bradycardia seems to have been a big part of the picture and does seem to be improving, and it appears we have unearthed a degree of sleep apnea or possibly even hypoventilation type breathing mechanics when she is asleep. Treat all factors as possible, although see below as it relates to the sleep apnea. Symptomatic bradycardiaappears to be related to digoxin and carvedilol. Continue to hold digoxin, continue with markedly reduced dose of carvedilolrates are improving and her alertness seems to be improving to a degree as well, although as I discussed with the daughter I suspect that her other factors (malnutrition/deconditioning, as well as untreated sleep apnea) may be playing a significantly larger role in her fatigue 2. Sleep apnea/hypoventilationmore than likely she has regular sleep apnea and then with her restrictive lung disease it boils over to a degree of hypoventilation syndrome. Not clear, however, if she truly needs BiPAP versus if she may just need CPAP at higher pressuresin this respect we will definitely want to have her followed closely by sleep medicine as an outpatient. Resident physician actually noted that apparently she had CPAP ordered as an outpatient at some point in the recent past, but apparently had not yet started using it, so it is quite possible that she is already had a sleep study done. She did not tolerate BiPAP at all, but it seemed more due to claustrophobia from the facemaskif we are able to have a less obtrusive mask or lower pressures, she may tolerate it better. Tried to educate patient on the critical importance of following through with this, but right now she was so upset about the claustrophobic feeling of the mask that she was more just upset with me. Daughter did express good understanding of this. Wide-complex tachycardiaonly a few beats, but she does have an ICD, indicating that she certainly has a propensity towards these. While we would like to hold the carvedilol entirely for bradycardia, we will continue to very low dose with hold parameters for this. Replace mag and K. has not appeared to be an issue today. Probable severe protein calorie malnutritionwhile her BMI is still about 21, and her albumin is 3, it is reported that she has had about a 16% weight loss over the last months. Certainly this would contribute to her fatigue as well. Continue to encourage nutrition. asked dtr to encourage as well. DVT prophylaxispharmacologic contraindicated due to recent intracranial bleed. Dakota Sofia is seen at the bedside today. She reports she continues to feel fatigued, unchanged from prior. She is not able to tolerate the BiPAP mask overnight. She denies shortness of breath, chest pain, chest pressure this morning. She reports almost no appetite, but has no nausea or abdominal pain. No bowel movement yet this morning. No urinary pain/dysuria. She reports she is tired and would like to go back to sleep, expresses no questions or concerns at time of bedside visit. Review of Systems Review of Systems: All systems reviewed & are unremarkable except as noted in HPI & below Physical Exam Physical Exam: General: A&Ox3. Appears fatigued. Thin. NAD. Cooperative. HEENT: Atraumatic, normocephalic. Pulm: CTAB A&P. -wheezes, -rales, -rhonchi. Symmetrical chest rise. No increase work of breathing. No respiratory distress. Cardiac: Irregularly irregular, heart rate 60s to 70s today. Systolic murmur appreciated. No JVD. No distal extremity swelling. Abdominal: Nontender, nondistended, soft. BS present. Results & Data ([facility]) Vital Signs (Past 12 Hours) Vital Signs Temp Pulse Pulse Pulse Resp BP Pulse Ox 07/11/19 07:46 71 07/11/19 07:18 36.9 C 55 L 20 138/76 99 07/11/19 04:39 36.8 C 63 19 168/91 H 98 07/11/19 00:05 56 L 07/10/19 22:55 63 18 148/81 H 96 Resident Activity Tracking Resident Involvement: Resident Care Provided Care Provided: Adult Hospital Medicine (1) Digoxin toxicity Encounter type: initial encounter Injury intent: accidental or unintentional Qualified Code(s): T46.0X1A - Poisoning by cardiac-stimulant glycosides and drugs of similar action, accidental (unintentional), initial encounter (2) Fatigue Fatigue type: unspecified Qualified Code(s): R53.83 - Other fatigue (3) Thoracoabdominal aneurysm Presence of rupture: without rupture Qualified Code(s): I71.6 - Thoracoabdominal aortic aneurysm, without rupture
[2019-07-11] MEDS: ONDANSETRON INJ 2 MG/ML 2 ML VIAL IV PRN (17:47)
--- NOTE | 2019-07-11 18:01 | Billing Data ---
Date of Service July 11, 2019 Coding Level of Care Code 28742 Subseq Hosp Care Lvl 3
[2019-07-12] MEDS: LACTATED RINGER'S 1,000 ML IV SCH (01:46)
[2019-07-12 08:18] LABS: Basophils # (auto) 0.02 K/uL (0-0.2); Basophils % (auto) 0.2 %; Eosinophils % (auto) 1.1 %; Hematocrit (blood only) 35.7 % (37-47); Hemoglobin 11.1 g/dL (12.0-16.0); Immature Granulocytes # (auto) 0.02 K/uL (0.00-0.02); Immature Granulocytes % (auto) 0.2 %; Lymphocytes # (auto) 1.58 K/uL (1.2-3.4); Lymphocytes % (auto) 16.8 %; Mean Corpuscular Hemoglobin 30.3 pg (25-34); Mean Corpuscular Hgb Conc 31.1 g/dL (32-36); Mean Corpuscular Volume 97.5 fL (80-100); Mean Platelet Volume 11.3 fL (7.4-10.4); Monocytes # (auto) 1.02 K/uL (0.11-0.59); Monocytes % (auto) 10.8 %; Neutrophils # (auto) 6.68 K/uL (1.4-6.5); Neutrophils % (auto) 70.9 %; Platelet Count 184 K/uL (130-400); RDW Coefficient of Variation 13.6 % (11.5-14.5); RDW Standard Deviation 48.1 fL (36.4-46.3); Red Blood Count 3.66 M/uL (4.2-5.4); White Blood Count 9.42 K/uL (4.8-10.8)
[2019-07-12] MEDS: MAGNESIUM OXIDE 400 MG TAB PO SCH (08:48)
[2019-07-12] MEDS: DOCUSATE SODIUM 100 MG CAP PO SCH ×2 (08:48→20:50)
[2019-07-12] MEDS: AMLODIPINE BESYLATE 5 MG TAB PO SCH (08:48)
[2019-07-12 08:51] LABS: BUN Creatinine Ratio 16.2 (10-20); Calcium 8.8 mg/dl (8.5-10.1); Est GFR (African American) 103.2; Potassium 4.1 mmol/L (3.5-5.1)
[2019-07-12] MEDS: POTASSIUM CHLORIDE 20 MEQ TABCR PO SCH ×2 (08:51→20:48)
[2019-07-12] MEDS: lisinopriL 10 MG TAB PO SCH ×2 (08:52→20:50)
[2019-07-12] MEDS: FAMOTIDINE 20 MG TAB PO SCH (08:52)
[2019-07-12] MEDS: carvediloL 6.25 MG TAB PO SCH ×2 (08:52→20:50)
[2019-07-12] MEDS: SERTRALINE HCL 50 MG TABLET PO SCH (08:53)
--- NOTE | 2019-07-12 13:50 | Hospitalist Progress Note ---
Date of Service July 12, 2019 Assessment & Plan (1) Fatigue: 78-year-old female was admitted on 07 July 2019 for fatigue and weakness. Fatigue, symptomatic bradycardia, persistent atrial fibrillation: As low as 30s. EKG shows A. fib rate 46. Monitor shows aberrant conduction. Has an AICD. Admit digoxin 2.1. Chest x-ray was clear. Held home digoxin (and likely stop on hospital d/c), Lasix, and spironolactone. Is on coreg 3.125 BID (her normal home dose is 12.5 mg BID). - HR improving to the 70s range. If she becomes tachycardic, consider doubling current dose of coreg. - Overall fatigue is likely a combination of deconditioning, poor nutrition, and her history of CVA. Continued attempts at PT and food intake. Elevated troponin, new systolic murmur: Serial check stable around 0.1, likely from severe LVH (see echo report). Apr 2019 had clear cardiac cath. Asymptomatic bacteruria: Urine culture growing pansensitive proteus. Will follow clinically. Diabetes: Not listed in her PMH, though admit A1c was 6.5. Given age, goal is < 8. Elevated bicarb: ABG pH 7.49, HCO3 36, pCO2 47. Metabolic alkalosis, ? due to contraction. Sleep apnea / hypoventilation: Overnight sleep study noted multiple desaturations. Has not been tolerating BiPAP overnight (possibly more due to claustrophobia than anything). - May benefit from sleep eval as outpatient. Consider nasal pillow (not available as an inpatient). Reportedly she already has a CPAP machine on order for home. Ongoing medical issues: - Hypertension: Continue home amlodipine, Coreg (at lower dose), lisinopril. 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 [place] [facility] No surgery performed at that time. Holding anticoagulation until 20Feb. Admit CT head shows interval evolution of her left cerebellar infarcts with decreased mass-effect. - Severe concentric LVH, chronic diastolic heart failure: Feb echo noted EF 65-70%, severe concentric LVH, moderate biatrial dilatation (see full report). --- Held home Lasix, spironolactone, and digoxin. - Abdominal aortic 6 cm aneurysm: Previously evaluated at [place] for this. - COPD, restrictive lung disease: Secondary to kyphoscoliosis. Not on any meds for this. - Anxiety: On home Zoloft. Code status: Full code. Diet: Heart healthy, minced and moist. No issues on brief speech evaluation. DVT prophy: Chemical prophylaxis held due to recent hemorrhage. Likely restart on July 24. On SCDs. PT/OT: Thus far patient has been too tired to participate. Disbo: Admit to [facility] with telemetry. Anticipate discharge to [facility] (where she was prior, though lives at home at baseline) when bed available (perhaps Sunday). 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 tired but nursing notes that in signout they were informed she was up a good deal late in the day/overnight. Vitals noted, in general she is awake and alert and able to interact and hold attention. HEENT normocephalic atraumatic mucous membranes moist. Heart rates now mostly low normal. No focal neuro deficits. Fatigueappearing to be multifactorialdeconditioning malnutrition related to her cerebellar stroke certainly looms large, her symptomatic bradycardia seems to have been a big part of the picture and does seem to be improving, as well as sleep apnea. treat all factors as best as possible. Symptomatic bradycardiaappears to be related to digoxin and carvedilol. off digoxin, tolerating low dose carvedilol. continue to follow. appears improving. Sleep apnea/hypoventilationmore than likely she has regular sleep apnea and then with her restrictive lung disease it boils over to a degree of hypoventilation syndrome. Did not tolerate hospital mask - but as outpt other masks can be trialed. unclear if she will need CPAP or BiPAP but this has apparently already been ordered as outpt. since we are unable to give trial to other masks, this will have to be pursued at SNF once she is discharged. Wide-complex tachycardiaonly a few beats, but she does have an ICD, indicating that she certainly has a propensity towards these. While we would like to hold the carvedilol entirely for bradycardia, we will continue to very low dose with hold parameters for this. Replace mag and K. has not appeared to be an issue today. Probable severe protein calorie malnutritionwhile her BMI is still about 21, and her albumin is 3, it is reported that she has had about a 16% weight loss over the last months. Certainly this would contribute to her fatigue as well. Continue to encourage nutrition. asked dtr to encourage as well. DVT prophylaxispharmacologic contraindicated due to recent intracranial bleed. Subjective Spoke with patient earlier today. She overall wish to go back to sleep. She denied any complaints and said that she felt fine. Discussions with nursing later in the morning, they note that she still appears quite weak. Review of Systems Review of Systems: Per HPI as above. Physical Exam Physical Exam: General Appearance: Initially sleeping comfortably but awakes easily, alert, appears comfortable but fatigued, and does not appear in acute distress. CV: +S1S2 irregularly irregular, positive systolic murmur. Pulm: Clear to auscultation throughout. Nasal cannula oxygen in place. Abdomen: +BS, soft, non-tender, non-distended. Extremities: No pedal edema or calf tenderness. Neuro: No gross neuro deficits. Results & Data ([facility]) Vital Signs (Past 12 Hours) Vital Signs Temp Pulse Pulse Pulse Resp BP Pulse Ox 07/12/19 11:28 37.1 C 90 16 151/88 H 97 07/12/19 07:32 70 07/12/19 07:20 36.8 C 75 18 148/73 H 95 07/12/19 03:29 36.5 C 77 18 186/98 H 98 Laboratory Results 07/12/19 07/12/19 07/12/19 Range/Units 11:38 07:36 07:36 WBC 9.42 (4.8-10.8) K/uL RBC 3.66 L (4.2-5.4) M/uL Hgb 11.1 L (12.0-16.0) g/dL Hct 35.7 L (37-47) % MCV 97.5 (80-100) fL MCH 30.3 (25-34) pg MCHC 31.1 L (32-36) g/dL RDW Std Deviation 48.1 H (36.4-46.3) fL RDW Coeff of Kristina 13.6 (11.5-14.5) % Plt Count 184 (130-400) K/uL MPV 11.3 H (7.4-10.4) fL Immature Gran % (Auto) 0.2 % Neut % (Auto) 70.9 % Lymph % (Auto) 16.8 % Taylor % (Auto) 10.8 % Eos % (Auto) 1.1 % Baso % (Auto) 0.2 % Immature Gran # (Auto) 0.02 (0.00-0.02) K/uL Neut # (Auto) 6.68 H (1.4-6.5) K/uL Lymph # (Auto) 1.58 (1.2-3.4) K/uL Taylor # (Auto) 1.02 H (0.11-0.59) K/uL Eos # (Auto) 0.10 (0-0.5) K/uL Baso # (Auto) 0.02 (0-0.2) K/uL Sodium 142 (136-145) mmol/L Potassium 4.1 (3.5-5.1) mmol/L Chloride 105 (98-107) mmol/L Carbon Dioxide 35 H (21-32) mmol/L Anion Gap 2.0 L (3-11) BUN 10 (7-18) mg/dl Creatinine 0.59 L (0.6-1.2) mg/dl Est Cr Clr Drug Dosing 70.0 ml/min Est GFR ( Amer) 103.2 Est GFR (Non-Af Amer) 89.0 BUN/Creatinine Ratio 16.2 (10-20) Glucose 99 (70-99) mg/dl POC Glucose 130 H (70-99) mg/dl Calcium 8.8 (8.5-10.1) mg/dl 07/12/19 Range/Units 07:35 WBC (4.8-10.8) K/uL RBC (4.2-5.4) M/uL Hgb (12.0-16.0) g/dL Hct (37-47) % MCV (80-100) fL MCH (25-34) pg MCHC (32-36) g/dL RDW Std Deviation (36.4-46.3) fL RDW Coeff of Kristina (11.5-14.5) % Plt Count (130-400) K/uL MPV (7.4-10.4) fL Immature Gran % (Auto) % Neut % (Auto) % Lymph % (Auto) % Taylor % (Auto) % Eos % (Auto) % Baso % (Auto) % Immature Gran # (Auto) (0.00-0.02) K/uL Neut # (Auto) (1.4-6.5) K/uL Lymph # (Auto) (1.2-3.4) K/uL Taylor # (Auto) (0.11-0.59) K/uL Eos # (Auto) (0-0.5) K/uL Baso # (Auto) (0-0.2) K/uL Sodium (136-145) mmol/L Potassium (3.5-5.1) mmol/L Chloride (98-107) mmol/L Carbon Dioxide (21-32) mmol/L Anion Gap (3-11) BUN (7-18) mg/dl Creatinine (0.6-1.2) mg/dl Est Cr Clr Drug Dosing ml/min Est GFR ( Amer) Est GFR (Non-Af Amer) BUN/Creatinine Ratio (10-20) Glucose (70-99) mg/dl POC Glucose 111 H (70-99) mg/dl Calcium (8.5-10.1) mg/dl Medications Administered Current Inpatient Medications Amlodipine Besylate (Norvasc) 10 mg PO DAILY [facility] Stop: 08/07/19 08:59 Last Admin: 07/12/19 08:48 Dose: 10 mg Documented by: Carvedilol (Coreg) 3.125 mg PO BID [facility] Stop: 08/06/19 20:59 Last Admin: 07/12/19 08:52 Dose: 3.125 mg Documented by: Docusate Sodium (Colace) 100 mg PO BID [facility] Stop: 08/06/19 20:59 Last Admin: 07/12/19 08:48 Dose: 100 mg Documented by: Famotidine (Pepcid) 20 mg PO DAILY [facility] Stop: 08/07/19 08:59 Last Admin: 07/12/19 08:52 Dose: 20 mg Documented by: Lisinopril (Zestril) 10 mg PO BID [facility] Stop: 08/06/19 20:59 Last Admin: 07/12/19 08:52 Dose: 10 mg Documented by: Magnesium Oxide (Mag-Ox) 400 mg PO QAM [facility] Stop: 08/08/19 14:59 Last Admin: 07/12/19 08:48 Dose: 400 mg Documented by: Ondansetron HCl (Zofran) 4 mg IV Q6H PRN PRN Reason: Nausea Stop: 08/06/19 18:39 Last Admin: 07/11/19 17:47 Dose: 4 mg Documented by: Potassium Chloride (Klor-Con M20) 20 meq PO BID [facility] Stop: 08/08/19 20:59 Last Admin: 07/12/19 08:51 Dose: 20 meq Documented by: Sertraline HCl (Zoloft) 50 mg PO DAILY [facility] Stop: 08/07/19 08:59 Last Admin: 07/12/19 08:53 Dose: 50 mg Documented by: Resident Activity Tracking Resident Involvement: Resident Care Provided Care Provided: Adult Hospital Medicine (1) Fatigue Fatigue type: unspecified Qualified Code(s): R53.83 - Other fatigue (2) Afib Atrial fibrillation type: longstanding persistent Qualified Code(s): I48.11 - Longstanding persistent atrial fibrillation (3) Thoracoabdominal aneurysm Presence of rupture: without rupture Qualified Code(s): I71.6 - Thoracoabdominal aortic aneurysm, without rupture
--- NOTE | 2019-07-12 17:14 | Billing Data ---
Date of Service July 12, 2019 Coding Level of Care Code 39692 Subseq Hosp Care Lvl 2
[2019-07-12] MEDS: ONDANSETRON INJ 2 MG/ML 2 ML VIAL IV PRN (23:46)
[2019-07-13] MEDS ORDERED: carvediloL 3.125 MG TAB PO ONE (01:45)
[2019-07-13] MEDS: lisinopriL 10 MG TAB PO SCH ×2 (07:54→21:03)
[2019-07-13] MEDS: SERTRALINE HCL 50 MG TABLET PO SCH (07:54)
[2019-07-13] MEDS: FAMOTIDINE 20 MG TAB PO SCH (07:54)
[2019-07-13] MEDS: DOCUSATE SODIUM 100 MG CAP PO SCH ×2 (07:55→21:03)
[2019-07-13] MEDS: MAGNESIUM OXIDE 400 MG TAB PO SCH (07:55)
[2019-07-13] MEDS: carvediloL 6.25 MG TAB PO SCH ×2 (07:57→21:03)
[2019-07-13] MEDS: POTASSIUM CHLORIDE 20 MEQ TABCR PO SCH ×2 (07:57→21:04)
[2019-07-13] MEDS: AMLODIPINE BESYLATE 5 MG TAB PO SCH (07:57)
--- NOTE | 2019-07-13 13:34 | Hospitalist Progress Note ---
Date of Service July 13, 2019 Assessment & Plan (1) Fatigue: 78-year-old female was admitted on 07 July 2019 for fatigue and weakness. Fatigue, symptomatic bradycardia, persistent atrial fibrillation, protein- calorie malnutrition: As low as 30s. EKG shows A. fib rate 46. Monitor shows aberrant conduction. Has an AICD. Admit digoxin 2.1. Chest x-ray was clear. Held home digoxin (and likely stop on hospital d/c), Lasix, and spironolactone. Has been on coreg 3.125 BID. - HR improving to the 70s range. Did have two runs of Vtach (max 11 beat run) in past 24 hours. Given single-dose of coreg and increased baseline coreg to 6.25 PO BID (her prior home dose is 12.5 mg BID). - Overall fatigue is likely a combination of deconditioning, poor nutrition (albumin 3), and her history of CVA. Continued attempts at PT and food intake. Elevated troponin: Max TnI 0.1. Likely from severe LVH (see echo report). Apr 2019 had clear cardiac cath. Asymptomatic bacteruria: Urine culture growing pansensitive proteus. Will follow clinically. Diabetes: Not listed in her PMH, though admit A1c was 6.5. Given age, goal is < 8. Elevated bicarb: ABG pH 7.49, HCO3 36, pCO2 47. Metabolic alkalosis, ? due to contraction. Sleep apnea / hypoventilation: Overnight sleep study noted multiple desaturations. Has not been tolerating BiPAP overnight (possibly more due to claustrophobia than anything). - May benefit from further sleep eval as outpatient. Consider nasal pillow (not available as an inpatient). Reportedly she already has a CPAP machine on order for home. Ongoing medical issues: - Hypertension: Continue home amlodipine, Coreg (at lower dose), lisinopril. - History of cerebellar hemorrhage: After a fallJune 2019. [place] [facility] [place] No surgery performed at that time. Holding anticoagulation until 20Feb. Admit CT head shows interval evolution of her left cerebellar infarcts with decreased mass-effect. - Severe concentric LVH, chronic diastolic heart failure: 04Feb echo noted EF 65-70%, severe concentric LVH, moderate biatrial dilatation (see full report). --- Held home Lasix, spironolactone, and digoxin. - Abdominal aortic 6 cm aneurysm: Previously evaluated at [place] for this. - COPD, restrictive lung disease: Secondary to kyphoscoliosis. Not on any meds for this. - Anxiety: On home Zoloft. Code status: Full code. Diet: Heart healthy, minced and moist. No issues on brief speech evaluation. DVT prophy: Chemical prophylaxis held due to recent hemorrhage. Likely restart on July 24. On SCDs. PT/OT: Thus far patient has been too tired to participate. Disbo: Admit to [facility] with telemetry. Anticipate discharge to [facility] (where she was prior, though lives at home at baseline) when bed available (perhaps Sunday). 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 sleeping soundly, no acute events reported other than short runs of Vtach which she has done from time to time (and for which she has an AICD) Vitals noted, NAD. HEENT normocephalic atraumatic mucous membranes moist. Heart rates now mostly low normal. No focal neuro deficits. Fatigueappearing to be multifactorialdeconditioning malnutrition related to her cerebellar stroke certainly looms large, her symptomatic bradycardia seems to have been a big part of the picture and does seem to be improving, as well as sleep apnea. continue to treat all factors as best as possible. PO intake is of significant concern - continue to encourage, but may need appetite stimulant at some point if she doesn't improve her intake. Symptomatic bradycardiaappears to be related to digoxin and carvedilol. off digoxin, tolerating low dose carvedilol (agree w slight increase due to vtach runs). continue to follow. appears improving. Sleep apnea/hypoventilationmore than likely she has regular sleep apnea and then with her restrictive lung disease it boils over to a degree of hypoventilation syndrome. Did not tolerate hospital mask - but as outpt other masks can be trialed. unclear if she will need CPAP or BiPAP but this has apparently already been ordered as outpt. since we are unable to give trial to other masks, this will have to be pursued at SNF once she is discharged. Wide-complex tachycardiaonly a few beats, but she does have an ICD, indicating that she certainly has a propensity towards these. continue to gently titrate coreg. most recent K >4, most recent mag >2. Probable severe protein calorie malnutritionwhile her BMI is still about 21, and her albumin is 3, it is reported that she has had about a 16% weight loss over the last months. Certainly this would contribute to her fatigue as well. Continue to encourage nutrition - see above may need to consider appetite stimulant. asked dtr to encourage as well. DVT prophylaxispharmacologic contraindicated due to recent intracranial bleed. Subjective Found patient sitting up in bed with her breakfast tray in front of her. She really was not eating anything. She does not volunteer any information but denied any overt complaints, stating overall she was "good". When asked if she had any chest pain, she says that she thinks it may get occasional heartburn. Denies palpitations. Denies any difficulty breathing. Says her overall energy level is about the same. Review of Systems Review of Systems: Per HPI as above. Physical Exam Physical Exam: General Appearance: Awake, alert, appears overall fatigued, but does not appear in acute distress. CV: +S1S2 irregularly irregular, positive systolic murmur. Pulm: Clear to auscultation throughout. Nasal cannula oxygen in place. Abdomen: +BS, soft, non-tender, non-distended. Extremities: No pedal edema or calf tenderness. Neuro: No gross neuro deficits. Results & Data ([facility]) Vital Signs (Past 12 Hours) Vital Signs Temp Pulse Resp BP BP Pulse Ox 07/13/19 11:50 36.4 C L 55 L 16 147/81 H 99 07/13/19 09:10 97 07/13/19 09:00 83 L 07/13/19 07:16 36.6 C 57 L 20 161/82 H 99 02/09/20 03:22 36.6 C 64 20 127/88 98 Laboratory Results 07/13/19 07/13/19 Range/Units 11:27 07:23 POC Glucose 102 H 98 (70-99) mg/dl Medications Administered Current Inpatient Medications Amlodipine Besylate (Norvasc) 10 mg PO DAILY [facility] Stop: 08/07/19 08:59 Last Admin: 07/13/19 07:57 Dose: 10 mg Documented by: Carvedilol (Coreg) 6.25 mg PO BID [facility] Stop: 08/12/19 08:59 Last Admin: 07/13/19 07:57 Dose: 6.25 mg Documented by: Docusate Sodium (Colace) 100 mg PO BID [facility] Stop: 08/06/19 20:59 Last Admin: 07/13/19 07:55 Dose: 100 mg Documented by: Famotidine (Pepcid) 20 mg PO DAILY [facility] Stop: 08/07/19 08:59 Last Admin: 07/13/19 07:54 Dose: 20 mg Documented by: Lisinopril (Zestril) 10 mg PO BID [facility] Stop: 08/06/19 20:59 Last Admin: 07/13/19 07:54 Dose: 10 mg Documented by: Magnesium Oxide (Mag-Ox) 400 mg PO QAM [facility] Stop: 08/08/19 14:59 Last Admin: 07/13/19 07:55 Dose: 400 mg Documented by: Ondansetron HCl (Zofran) 4 mg IV Q6H PRN PRN Reason: Nausea Stop: 08/06/19 18:39 Last Admin: 07/12/19 23:46 Dose: 4 mg Documented by: Potassium Chloride (Klor-Con M20) 20 meq PO BID [facility] Stop: 08/08/19 20:59 Last Admin: 07/13/19 07:57 Dose: 20 meq Documented by: Sertraline HCl (Zoloft) 50 mg PO DAILY [facility] Stop: 08/07/19 08:59 Last Admin: 07/13/19 07:54 Dose: 50 mg Documented by: Resident Activity Tracking Resident Involvement: Resident Care Provided Care Provided: Adult Hospital Medicine (1) Fatigue Fatigue type: unspecified Qualified Code(s): R53.83 - Other fatigue (2) Afib Atrial fibrillation type: longstanding persistent Qualified Code(s): I48.11 - Longstanding persistent atrial fibrillation (3) Thoracoabdominal aneurysm Presence of rupture: without rupture Qualified Code(s): I71.6 - Thoracoabdominal aortic aneurysm, without rupture
--- NOTE | 2019-07-13 14:11 | Billing Data ---
Date of Service July 13, 2019 Coding Level of Care Code 27975 Subseq Hosp Care Lvl 1
[2019-07-14 06:52] LABS: BUN Creatinine Ratio 20.8 (10-20); Calcium 8.8 mg/dl (8.5-10.1); Creatinine Clr Calc Pharmacy 61.7 ml/min; Est GFR (Non-African American) 85.4; Magnesium 2.1 mg/dl (1.8-2.4); Phosphorus 3.2 mg/dl (2.5-4.9); Potassium 4.2 mmol/L (3.5-5.1)
[2019-07-14] MEDS: carvediloL 6.25 MG TAB PO SCH (08:19)
[2019-07-14] MEDS: DOCUSATE SODIUM 100 MG CAP PO SCH (08:20)
[2019-07-14] MEDS: lisinopriL 10 MG TAB PO SCH (08:20)
[2019-07-14] MEDS: MAGNESIUM OXIDE 400 MG TAB PO SCH (08:20)
[2019-07-14] MEDS: AMLODIPINE BESYLATE 5 MG TAB PO SCH (08:20)
[2019-07-14] MEDS: SERTRALINE HCL 50 MG TABLET PO SCH (08:20)
[2019-07-14] MEDS: FAMOTIDINE 20 MG TAB PO SCH (08:20)
[2019-07-14] MEDS: POTASSIUM CHLORIDE 20 MEQ TABCR PO SCH (08:20)
[2019-07-14] MEDS ORDERED: NYSTATIN SUSP 500,000 U/5 ML UDC PO SCH (13:00)
--- NOTE | 2019-07-14 14:10 | Discharge Summary ---
Date of Service July 14, 2019 Admission HPI Per Admitting Provider Bismark King is a 78 year old female who presented to the ER from [facility] due to generalized fatigue, weakness and reduced appetite. She was recently admitted to [facility] due to left cerebellar hemorrhage after a fall on warfarin and supratherapeutic INR of 5.1. Unable to get much of a history from the patient herself as she does not have much recollection since her fall and admission at [facility] therefore history obtained from her daughters over the phone and at bedside and [facility] notes. [place] discharge summary has been requested via HIM. She was hospitalized from June 23 to 2019 due to left cerebellar hemorrhage after a fall backwards from standing up from a chair. As per ER notes from that time she was dizzy and vomiting blood after this. Apparently with no LOC from the fall itself. No surgical intervention was performed. Therefore was some talk of a feeding tube at [place] if her appetite didn't improve but I am unclear how far these conversations went. However it is clear she was fatigued and had a poor appetite at [place] prior to [facility]. However at [facility] she appeared to deteriorate further and has been sleeping most of the day with a generalized weakness. This appears to be a slow progression rather than sudden change in her condition. She is unable to answer any questions regarding dysphagia or odynophagia. Admission Exam Per Admitting Provider Constitutional: + thin and + frail appearing; + not well nourished and no acute distress Eyes: PERRL, conjunctivae normal, anicteric sclerae normal visual giraldo by confrontation and EOM intact bilaterally (possible vertical diplopia); no nystagmus ENMT: external ear and nose normal, oropharynx normal Neck: trachea midline, no thyromegaly Respiratory: normal respiratory effort, lungs clear to auscultation Cardiovascular: Rate/Rhythm: + bradycardic and + irregularly irregular Heart Sounds: + murmur (4/6 RUSB systolic) Vessels: no JVD Extremities: normal capillary refill; no calf tenderness and no pedal edema Gastrointestinal (Abdomen): normal bowel sounds, soft, nontender, no hepatosplenomegaly Musculoskeletal: no cyanosis or clubbing, extremities motor strength 5/5 Skin: no rashes, warm and dry Neurologic: moves all extremities (generalized weakness in all 4 extremities) and awake Speech / Cognition: normal speech Motor/Sensory: + pronator drift (bilateral L > R); no tremor and no sensory deficit Cranial Nerves: PERRL, normal accommodation, EOM intact bilaterally (possible veritcal diplopia), normal facial strength, tongue midline, able to rotate head bilaterally, able to elevate shoulders bilaterally and no nystagmus Co ordination: + abnormal [id number] test (slow b/l L > R) Psychiatric: A+Ox3, euthymic affect Lymphatic: no cervical or axillary lymphadenopathy Principal Diagnosis Fatigue, Weakness Discharge Exam General: Alert. Laying in bed sleeping. Skin: No noted rashes or bruises Psych: Appropriate mood and affect Neuro: No gross deficits HEENT: NC/AT, oropharynx moist, no noted white plaques. Chest: Nontender to palpation. CV: RRR, Normal s1, s2. No murmurs appreciated Resp: Breath sounds coarse bilaterally, no increased effort of breathing. Abdomen: Soft, nontender, nondistended. No guarding. No organomegaly appreciated. Extremities: No edema in lower extremities bilaterally. Discharge Data Allergies Allergy/AdvReac Type Severity Reaction Status Date / Time No Known Drug Allergies Allergy Unknown Verified 07/07/19 14:09 Consultations 07/07/19 14:46 ED Decision to Admit Stat 07/07/19 17:52 Consult Health Information Management Stat Ordered Studies 07/07/19 12:50 CT head/brain wo con Stat Hospital Course (1) Fatigue: 78-year-old female was admitted on 07 July 2019 for fatigue and weakness. Also with decreased appetite and CRAOLEE. Discharged on 07/14/2019. Summary Instructions -Continue to hold digoxin, spironolactone and lasix (see below). Continue Coreg at lower 6.25mg dose. -stop Zoloft, continue Prozac 10mg for more stimulatory effect -use CPAP 6cm H20 with nasal pillow mask for CAROLEE -continue to hold warfarin Fatigue/symptomatic bradycardia/persistent atrial fibrillation/protein-calorie malnutrition -Overall fatigue is likely a combination of deconditioning, poor nutrition (albumin 3), and her history of CVA. Could also be side-effect of Digoxin, level elevated on admission (2.1). -EKG on admission with atrial fibrillation, bradycardic rate of 46 but has been as low as 30s. -Telemetry monitoring with aberrant conduction, with vtach runs noted. Has AICD. -Home digoxin discontinued. Coreg was decreased from home 12.5mg BID to 6.25mg PO BID on discharge. -Discontinued home spironolactone and Lasix, chest xray clear. -Switched from Zoloft to Prozac 10mg to treat Hx of Anxiety, and hope to stimulate appetite as well. -Continue attempts at food intake and physical therapy. Decreased appetite possibly secondary to depression -trial prozac for stimulating effect. d/c zoloft. avoiding remeron due to sedating effect since she is already very somnolent -Continue attempts at food intake. Sleep apnea / hypoventilation: -Overnight sleep study noted multiple desaturations. -Has not been tolerating BiPAP overnight -May benefit from further sleep eval as outpatient. -Discharged with CPAP script 6cm H2O with supplies and tubing including nasal pillow. Asymptomatic bacteruria: -Urine culture growing pansensitive proteus. -continue to follow clinically. ?Diabetes: -Not listed in her PMH, though admit A1c was 6.5. -Given age, goal is < 8. Elevated troponin: -Max troponins noted this visit is 0.1. -Likely from severe LVH (see echo report), same on echo (Jul 08) this admission. -Apr 2019 had clear cardiac cath. Elevated bicarb: -ABG pH 7.49, HCO3 36, pCO2 47. Metabolic alkalosis, ? due to contraction. -resolved on discharge - Hypertension: Continue home amlodipine, Coreg (at lower dose), lisinopril. 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 Followed by neurosurgery at [facility]. No surgery performed at that time. Holding anticoagulation until 20Feb. Admit CT head shows interval evolution of her left cerebellar infarcts with decreased mass-effect. - Severe concentric LVH, chronic diastolic heart failure: Feb echo noted EF 65-70%, severe concentric LVH, moderate biatrial dilatation (see full report). --- Held home Lasix, spironolactone, and digoxin. - Abdominal aortic 6 cm aneurysm: Previously evaluated at [place] for this. - COPD, restrictive lung disease: Secondary to kyphoscoliosis. Not on any meds for this. - Anxiety: Switched from home Zoloft 50mg to Prozac 10mg to help with appetite on discharge. can consider escalating dose as needed. 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: (15) COPD (chronic obstructive pulmonary disease): (16) Restrictive lung disease: (17) Anxiety: Total Time Total Time Spent Total Time Spent (In Minutes): see attending attestation Discharge Plan Discharge Items Patient Disposition: Transfer Snf Fac Reason For Visit: PRESYNCOPE, FATIGUE, DECREASED APPETITE Discharge Diagnosis: Fatigue, Weakness Activity: Per Instructions section Non-emergency contact: Primary Care Provider Call non-emergency contact if: your symptoms worsen and you have a fever Follow-up/Referrals: Alonso Holman MD [Primary Care Provider] - 07/17/19 1:30 pm (FOLLOW UP APPT MADE 07/11/2019 @ 16:15 JL) Diet: Heart Healthy Diet Texture: Pureed (blended smooth) Addtl Attending Provider Instructions: 78-year-old female was admitted on 07 July 2019 for fatigue and weakness. Also with decreased appetite and CAROLEE. Discharged on 07/14/2019. Summary Instructions -Continue to hold digoxin, spironolactone and lasix (see below). Continue Coreg at lower 6.25mg dose. -stop Zoloft, continue Prozac 10mg for appetite stimulation and treatment of anx iety. -use CPAP 6cm H20 with nasal pillow mask for CAROLEE -continue to hold warfarin Fatigue/symptomatic bradycardia/persistent atrial fibrillation/protein-calorie malnutrition -Overall fatigue is likely a combination of deconditioning, poor nutrition (albumin 3), and her history of CVA. Could also be side-effect of Digoxin, level elevated on admission (2.1). -EKG on admission with atrial fibrillation, bradycardic rate of 46 but has been as low as 30s. -Telemetry monitoring with aberrant conduction, with vtach runs noted. Has AICD. -Home digoxin discontinued. Coreg was decreased from home 12.5mg BID to 6.25mg PO BID on discharge. -Discontinued home spironolactone and Lasix, chest xray clear. -Switched from Zoloft to Prozac 10mg to treat Hx of Anxiety, and hope to stimulate appetite as well. -Continue attempts at food intake and physical therapy. Decreased appetite -Switched from Zoloft to Prozac 10mg to stimulate appetite while also treating Hx of Anxiety. -Can consider appetite stimulant on discharge or remeron, though sedating. -Continue attempts at food intake. Sleep apnea / hypoventilation: -Overnight sleep study noted multiple desaturations. -Has not been tolerating BiPAP overnight -May benefit from further sleep eval as outpatient. -Discharged with CPAP script 6cm H2O with supplies and tubing including nasal pillow. Asymptomatic bacteruria: -Urine culture growing pansensitive proteus. -continue to follow clinically. ?Diabetes: -Not listed in her PMH, though admit A1c was 6.5. -Given age, goal is < 8. Elevated troponin: -Max troponins noted this visit is 0.1. -Likely from severe LVH (see echo report), same on echo (Jul 08) this admission. -Apr 2019 had clear cardiac cath. Elevated bicarb: -ABG pH 7.49, HCO3 36, pCO2 47. Metabolic alkalosis, ? due to contraction. -resolved on discharge Ongoing medical issues: - Hypertension: Continue home amlodipine, Coreg (at lower dose), lisinopril. 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 Followed by neurosurgery at [facility]. No surgery performed at that time. Holding anticoagulation until 20Feb. Admit CT head shows interval evolution of her left cerebellar infarcts with decreased mass-effect. - Severe concentric LVH, chronic diastolic heart failure: 04Feb echo noted EF 65-70%, severe concentric LVH, moderate biatrial dilatation (see full report). --- Held home Lasix, spironolactone, and digoxin. - Abdominal aortic 6 cm aneurysm: Previously evaluated at [place] for this. - COPD, restrictive lung disease: Secondary to kyphoscoliosis. Not on any meds for this. - Anxiety: Switched from home Zoloft 50mg to Prozac 10mg to help with appetite on discharge. can consider escalating dose as needed. Pending Studies at Discharge: No Stand-Alone Forms: My [facility] Skilled Items Patient informed of condition?: Yes DNR: No Discharge Level of Care: Skilled Communicable Disease: No Discharge Prognosis: Stable Lines: None Urinary Catheter: No Medications and DC Order Prescriptions: New carvedilol 6.25 mg Tablet 6.25 mg PO BID Qty: 14 RF: 0 fluoxetine 10 mg Capsule 10 mg PO QAM Qty: 14 RF: 0 Continued famotidine 20 mg Tablet 20 mg PO DAILY RF: 0 amlodipine 10 mg Tablet 10 mg PO DAILY RF: 0 lisinopril 10 mg Tablet 10 mg PO BID RF: 0 docusate sodium 100 mg Capsule 100 mg PO BID RF: 0 Discontinued carvedilol 12.5 mg tablet 12.5 mg PO BID RF: 0 sertraline 50 mg tablet 50 mg PO DAILY RF: 0 spironolactone 25 mg tablet 12.5 mg PO DAILY RF: 0 digoxin 125 mcg tablet 125 mcg PO DAILY RF: 0 furosemide [Lasix] 20 mg tablet 20 mg PO DAILY Qty: 3 RF: 0 warfarin 2 mg tablet 0 mg PO UD RF: 0 Discharge Orders: Discharge Order (Routine); Ordered 07/14/19 Ordered By: Kira Franklin Admission Data Admit Date/Time: 07/07/19 16:09 Attending Provider: Andria Payne Admit Provider: Reji Craig Primary Care Provider: Alonso Holman Other Providers: Reji Craig ; Stephan Barajas ; Ulysses Smith Other Interventions: Discharge Summary Assessment (RN) Last Done: 07/14/19 15:10 DC Date/Time DO NOT enter until pt leaves facility: 07/14/19 16:14 Supervising Physician Co-Signing Physician Notes Resident Physician Supervision Note: I independently interviewed and examined the patient and verified the muhammad history and physical, reviewed labs and image studies, discussed the case with the resident Dr. Franklin and agree with the findings and care plan. Resident Activity Tracking Resident Involvement: Resident Care Provided Care Provided: Adult Hospital Medicine
[2019-07-15] MEDS ORDERED: FLUOXETINE HCL 10 MG CAP PO SCH (09:00)
== END 2019-07-14 16:14 | DRG 308 ==
LOC: ED 12:12 → 2W 16:09 → SUATTDRO 16:09 → 2W 16:41